=== PATIENT | male | born 1965 | race Caucasian/White ===

== ENCOUNTER 2018-10-01 18:25 | Emergency (ER) | payer OTHER ==
[~2018-10-01] VITALS: Ht 175.3 cm; Wt 117.9 kg
--- OUTSIDE RECORDS SUMMARY | ~2018-10-01 | XMS ---
Demographics + + + | Address | [address] | | | [address] | | | [place] [address] | + + + | Preferred Language | Unknown | + + + | Marital Status | Unknown | + + + | Confucianist Affiliation | Unknown | + + + | Race | Unknown | + + + | Ethnic Group | Unknown | + + + Author + + + | Author | [facility] | + + + | Organization | [facility] | + + + | Address | [address] | | | [place] [phone] | + + + | Phone | | + + + Care Team Providers + + + + | Care Nurse Administrator Name | Role | Phone | + + + + Unavailable | Unavailable | + + + + PROBLEMS +---------+ + + +--------+ + + | Type | Condition | ICD9-CM | [id number] | Onset | Condition | SNOMED | | | | Code | Code | Dates | Status | Code | +---------+ + + +--------+ + + | Problem | Hypertensi | | I10 | | Active | [id number] | | | on | | | | | | +---------+ + + +--------+ + + | Problem | Rotator | | M75.102 | | Active | 8799774686 | | | cuff tear, | | | | | 4683909 | | | left | | | | | | +---------+ + + +--------+ + + | Problem | Rotator | M75.101 | | | Active | 9425126963 | | | cuff tear, | | | | | 1688208 | | | right | | | | | | +---------+ + + +--------+ + + | Problem | Tobacco | | Z71.6 | | Active | 978372381 | | | abuse | | | | | | | | counseling | | | | | | +---------+ + + +--------+ + + | Problem | Prediabete | R73.09 | | | Active | 616671898 | | | s | | | | | | +---------+ + + +--------+ + + | Problem | Osteoarthr | M19.019 | | | Active | 966015973 | | | itis of | | | | | | | | glenohumer | | | | | | | | al joint | | | | | | +---------+ + + +--------+ + + | Problem | Osteoarthr | M19.119 | | | Active | 465293233 | | | itis due | | | | | | | | to rotator | | | | | | | | cuff tear | | | | | | +---------+ + + +--------+ + + | Problem | Bicipital | M75.20 | | | Active | 81643137 | | | tenosynovi | | | | | | | | tis | | | | | | +---------+ + + +--------+ + + | Problem | Osteoarthr | M19.019 | | | Active | 460116475 | | | itis of | | | | | | | | acromiocla | | | | | | | | vicular | | | | | | | | joint | | | | | | +---------+ + + +--------+ + + | Problem | Chronic | 338.4 | | | Active | 801843220 | | | pain | | | | | | | | syndrome | | | | | | +---------+ + + +--------+ + + | Problem | Vitamin D | 268.9 | | | Active | 15532027 | | | deficiency | | | | | | +---------+ + + +--------+ + + | Problem | HX | V15.51 | | | Active | | | | TRAUMATIC | | | | | | | | FRACTURE | | | | | | +---------+ + + +--------+ + + | Problem | Chronic | 719.41 | | | Active | 178388268 | | | right | | | | | | | | shoulder | | | | | | | | pain | | | | | | +---------+ + + +--------+ + + | Problem | Hyperlipid | | E78.5 | | Active | 05635024 | | | emia | | | | | | +---------+ + + +--------+ + + | Problem | Acquired | E03.9 | | | Active | 143288466 | | | hypothyroi | | | | | | | | dism | | | | | | +---------+ + + +--------+ + + | Problem | Peripheral | | R60.9 | | Active | 36382697 | | | edema | | | | | | +---------+ + + +--------+ + + | Problem | Tobacco | | Z72.0 | | Active | 445426259 | | | use | | | | | | +---------+ + + +--------+ + + | Problem | Alcoholism | F10.20 | | | Active | 6581199 | +---------+ + + +--------+ + + | Problem | Reactive | | J45.909 | | Active | 2868499437 | | | airway | | | | | 06 | | | disease | | | | | | +---------+ + + +--------+ + + ALLERGIES Unknown Allergies SOCIAL HISTORY No smoking Hx information available PLAN OF CARE VITAL SIGNS MEDICATIONS Unknown Medications RESULTS No Results PROCEDURES No Known procedures IMMUNIZATIONS No Known Immunizations"
--- OUTSIDE RECORDS SUMMARY | ~2018-10-01 | XMS ---
Demographics + + + | Address | [address] | | | [address] | | | [place] [address] | + + + | Preferred Language | Unknown | + + + | Marital Status | Unknown | + + + | Zoroastrianism Affiliation | Unknown | + + + | Race | Unknown | + + + | Ethnic Group | Unknown | + + + Author + + + | Author | [facility] | + + + | Organization | [facility] | + + + | Address | [address] | | | [place] [address] | + + + | Phone | | + + + Care Team Providers + + + + | Care Head Of Insight Name | Role | Phone | + + + + Unavailable | Unavailable | + + + + PROBLEMS + + + + + + + + | Type | Condition | ICD9-CM | [id number] | Onset | Condition | SNOMED | | | | Code | Code | Dates | Status | Code | + + + + + + + + | Problem | Rotator | | M75.102 | | Active | 3028281209 | | | cuff tear, | | | | | 2071623 | | | left | | | | | | + + + + + + + + | Problem | Osteoarthr | M19.019 | | | Active | 146776667 | | | itis of | | | | | | | | glenohumer | | | | | | | | al joint | | | | | | + + + + + + + + | Problem | Osteoarthr | M19.119 | | | Active | 351869726 | | | itis due | | | | | | | | to rotator | | | | | | | | cuff tear | | | | | | + + + + + + + + | Problem | Noncomplia | Z91.14 | | | Active | 988418064 | | | nce | | | | | | | | w/medicati | | | | | | | | on | | | | | | | | treatment | | | | | | | | due to | | | | | | | | intermit | | | | | | | | use of | | | | | | | | medication | | | | | | + + + + + + + + | Problem | Chronic | 719.41 | | | Active | 523771236 | | | right | | | | | | | | shoulder | | | | | | | | pain | | | | | | + + + + + + + + | Problem | Noncomplia | Z91.11 | | | Active | | | | nce of | | | | | | | | patient | | | | | | | | with | | | | | | | | dietary | | | | | | | | regimen | | | | | | + + + + + + + + | Problem | HX | V15.51 | | | Active | | | | TRAUMATIC | | | | | | | | FRACTURE | | | | | | + + + + + + + + | Assessment | Hypertensi | | I10 | 09 November, | Active | 04076468 | | | on | | | 2017 | | | + + + + + + + + | Problem | Bicipital | M75.20 | | | Active | 16163047 | | | tenosynovi | | | | | | | | tis | | | | | | + + + + + + + + | Problem | Osteoarthr | M19.019 | | | Active | 657836727 | | | itis of | | | | | | | | acromiocla | | | | | | | | vicular | | | | | | | | joint | | | | | | + + + + + + + + | Problem | Tobacco | | Z71.6 | | Active | 106715736 | | | abuse | | | | | | | | counseling | | | | | | + + + + + + + + | Problem | Prediabete | R73.09 | | | Active | 343261179 | | | s | | | | | | + + + + + + + + | Problem | Peripheral | | R60.9 | | Active | 49386490 | | | edema | | | | | | + + + + + + + + | Problem | Alcoholism | F10.20 | | | Active | 7897850 | + + + + + + + + | Problem | Chronic | 338.4 | | | Active | 563458110 | | | pain | | | | | | | | syndrome | | | | | | + + + + + + + + | Problem | Vitamin D | 268.9 | | | Active | 84559767 | | | deficiency | | | | | | + + + + + + + + | Problem | Tobacco | | Z72.0 | | Active | 696028825 | | | use | | | | | | + + + + + + + + | Problem | Reactive | | J45.909 | | Active | 5008353575 | | | airway | | | | | 06 | | | disease | | | | | | + + + + + + + + | Problem | Hyperlipid | | E78.5 | | Active | 90197949 | | | emia | | | | | | + + + + + + + + | Problem | Hypertensi | | I10 | | Active | 80517608 | | | on | | | | | | + + + + + + + + | Assessment | Prostate | Z12.5 | | 19 November, | Active | 076722718 | | | cancer | | | 2017 | | | | | screening | | | | | | + + + + + + + + | Problem | Acquired | E03.9 | | | Active | 968989544 | | | hypothyroi | | | | | | | | dism | | | | | | + + + + + + + + | Problem | Rotator | M75.101 | | | Active | 7373511854 | | | cuff tear, | | | | | 2998485 | | | right | | | | | | + + + + + + + + ALLERGIES + + + + +--------+ | Substance | Reaction | Event Type | Date | Status | + + + + +--------+ | Penicillin | Unknown | Drug Allergy | November, | Active | + + + + +--------+ SOCIAL HISTORY No smoking Hx information available PLAN OF CARE + +---------+ | Activity | Details | + +---------+ +---+ | | +---+ + + + | Pending Test | TSH | + + + | Pending Test | CBC, Platelet; No Differential | + + + | Pending Test | Comp. Metabolic Panel (14) | + + + | Pending Test | Lipid Panel | + + + | Pending Test | Hemoglobin A1C Panel | + + + | Pending Test | PSA | + + + | | 7-10 days,Reason: | + + + VITAL SIGNS + + + + | Height | 67 in | 2016-11-19 | + + + + | Weight | 243.4 lbs | 2016-11-19 | + + + + | BMI | 38.12 kg/m2 | 2016-11-19 | + + + + | Temperature | 98.7 degrees Fahrenheit | 2016-11-19 | + + + + | Heart Rate | 88 /min | 2016-11-19 | + + + + | Blood pressure systolic | 132 mm Hg | 2016-11-19 | + + + + | Blood pressure diastolic | 97 mm Hg | 2016-11-19 | + + + + MEDICATIONS Unknown Medications RESULTS No Results PROCEDURES + + + + + | Procedure | Date Ordered | Related Diagnosis | Body Site | + + + + + | Est Level IV | November 19, 2016 | | | | Extended | | | | + + + + + | DSCHRG MED/CURRENT | November 19, 2016 | | | | MED MERGE | | | | + + + + + | DOC MEDS VERIFIED | November 19, 2016 | | | | W/PT OR RE | | | | + + + + + IMMUNIZATIONS No Known Immunizations"
--- OUTSIDE RECORDS SUMMARY | ~2018-10-01 | XMS ---
Demographics + + + | Address | [address] | | | [address] | | | [place] [address] | + + + | Preferred Language | Unknown | + + + | Marital Status | Unknown | + + + | Evangelical Affiliation | Unknown | + + + | Race | Unknown | + + + | Ethnic Group | Unknown | + + + Author + + + | Author | [facility] | + + + | Organization | [facility] | + + + | Address | [address] | | | [place] [phone] | + + + | Phone | | + + + Care Team Providers + + + + | Care Parts Remover Name | Role | Phone | + + + + Unavailable | Unavailable | + + + + PROBLEMS + + + + + + + + | Type | Condition | ICD9-CM | IRK08-BE | Onset | Condition | SNOMED | | | | Code | Code | Dates | Status | Code | + + + + + + + + | Problem | Hypertensi | | I10 | | Active | 94887007 | | | on | | | | | | + + + + + + + + | Problem | Rotator | | M75.102 | | Active | 1452902646 | | | cuff tear, | | | | | 0560600 | | | left | | | | | | + + + + + + + + | Problem | Rotator | M75.101 | | | Active | 2041487617 | | | cuff tear, | | | | | 2216419 | | | right | | | | | | + + + + + + + + | Problem | Tobacco | | Z71.6 | | Active | 673303903 | | | abuse | | | | | | | | counseling | | | | | | + + + + + + + + | Assessment | Tobacco | Z72.0 | | 25 Apr, | Active | 883562990 | | | user | | | 2017 | | | + + + + + + + + | Problem | Prediabete | R73.09 | | | Active | 999094023 | | | s | | | | | | + + + + + + + + | Problem | Osteoarthr | M19.019 | | | Active | 532352385 | | | itis of | | | | | | | | erikahumer | | | | | | | | al joint | | | | | | + + + + + + + + | Problem | Osteoarthr | M19.119 | | | Active | 079830632 | | | itis due | | | | | | | | to rotator | | | | | | | | cuff tear | | | | | | + + + + + + + + | Problem | Bicipital | M75.20 | | | Active | 24512819 | | | tenosynovi | | | | | | | | tis | | | | | | + + + + + + + + | Problem | Osteoarthr | M19.019 | | | Active | 245813986 | | | itis of | | | | | | | | acromiocla | | | | | | | | vicular | | | | | | | | joint | | | | | | + + + + + + + + | Problem | Chronic | 338.4 | | | Active | 317211132 | | | pain | | | | | | | | syndrome | | | | | | + + + + + + + + | Problem | Vitamin D | 268.9 | | | Active | 57306436 | | | deficiency | | | [...] | 719.41 | | | Active | 073629281 | | | right | | | | | | | | shoulder | | | | | | | | pain | | | | | | + + + + + + + + | Problem | Hyperlipid | | E78.5 | | Active | 07189042 | | | emia | | | | | | + + + + + + + + | Problem | Acquired | E03.9 | | | Active | 420934510 | | | hypothyroi | | | | | | | | dism | | | | | | + + + + + + + + | Problem | Peripheral | | R60.9 | | Active | 67309175 | | | edema | | | | | | + + + + + + + + | Problem | Tobacco | | Z72.0 | | Active | 897078966 | | | use | | | | | | + + + + + + + + | Problem | Alcoholism | F10.20 | | | Active | 5841360 | + + + + + + + + | Problem | Reactive | | J45.909 | | Active | 7243640540 | | | airway | | | | | 06 | | | disease | | | | | | + + + + + + + + ALLERGIES Unknown Allergies SOCIAL HISTORY No smoking Hx information available PLAN OF CARE + +---------+ | Activity | Details | + +---------+ +---+ | | +---+ + + + | Pending Test | Nicotine, Urine | + + + | | ,Reason: | + + + VITAL SIGNS MEDICATIONS Unknown Medications RESULTS No Results PROCEDURES No Known procedures IMMUNIZATIONS No Known Immunizations"
--- OUTSIDE RECORDS SUMMARY | ~2018-10-01 | XMS ---
Demographics + + + | Address | [address] | | | [address] | | | [place] [address] | + + + | Preferred Language | Unknown | + + + | Marital Status | Unknown | + + + | Mandaen Affiliation | Unknown | + + + | Race | Unknown | + + + | Ethnic Group | Unknown | + + + Author + + + | Author | [facility] | + + + | Organization | [facility] | + + + | Address | [address] | | | [place] [address] | + + + | Phone | | + + + Care Team Providers + + + + | Care Wax Coating Machine Tender Name | Role | Phone | + + + + Unavailable | Unavailable | + + + + PROBLEMS + + + + + + + + | Type | Condition | ICD9-CM | WUL83-[id number] | Onset | Condition | SNOMED | | | | Code | Code | Dates | Status | Code | + + + + + + + + | Problem | Rotator | | M75.102 | | Active | [id number] | | | cuff tear, | | | | | 9237742 | | | left | | | | | | + + + + + + + + | Problem | Osteoarthr | M19.019 | | | Active | 463122642 | | | itis of | | | | | | | | glenohumer | | | | | | | | al joint | | | | | | + + + + + + + + | Problem | Osteoarthr | M19.119 | | | Active | 630455235 | | | itis due | | | | | | | | to rotator | | | | | | | | cuff tear | | | | | | + + + + + + + + | Problem | Noncomplia | Z91.14 | | | Active | 553310139 | | | nce | | | [...] | 719.41 | | | Active | 661471940 | | | right | | | [...] Assessment | Hypertensi | | I10 | 19 November, | Active | 42163747 | | | on | | | 2017 | | | + + + + + + + + | Problem | Bicipital | M75.20 | | | Active | 22717078 | | | tenosynovi | | | | | | | | tis | | | | | | + + + + + + + + | Problem | Osteoarthr | M19.019 | | | Active | 137465641 | | | itis of | | | | | | | | acromiocla | | | | | | | | vicular | | | | | | | | joint | | | | | | + + + + + + + + | Problem | Tobacco | | Z71.6 | | Active | 153795515 | | | abuse | | | | | | | | counseling | | | | | | + + + + + + + + | Problem | Prediabete | R73.09 | | | Active | 561008204 | | | s | | | | | | + + + + + + + + | Problem | Peripheral | | R60.9 | | Active | 60627601 | | | edema | | | | | | + + + + + + + + | Problem | Alcoholism | F10.20 | | | Active | 0825976 | + + + + + + + + | Problem | Chronic | 338.4 | | | Active | 728089448 | | | pain | | | | | | | | syndrome | | | | | | + + + + + + + + | Problem | Vitamin D | 268.9 | | | Active | 07326860 | | | deficiency | | | | | | + + + + + + + + | Problem | Tobacco | | Z72.0 | | Active | 294597875 | | | use | | | | | | + + + + + + + + | Problem | Reactive | | J45.909 | | Active | 4607668995 | | | airway | | | | | 06 | | | disease | | | | | | + + + + + + + + | Problem | Hyperlipid | | E78.5 | | Active | 76643520 | | | emia | | | | | | + + + + + + + + | Problem | Hypertensi | | I10 | | Active | 08716985 | | | on | | | | | | + + + + + + + + | Assessment | Encounter | | Z13.89 | 29 November, | Active | 769494488 | | | for | | | 2017 | | | | | screening | | | | | | | | for other | | | | | | | | disorder | | | | | | + + + + + + + + | Problem | Acquired | E03.9 | | | Active | 092241546 | | | hypothyroi | | | | | | | | dism | | | | | | + + + + + + + + | Problem | Rotator | M75.101 | | | Active | 3339984103 | | | cuff tear, | | | | | 1232409 | | | right | | | [...] information available PLAN OF CARE VITAL SIGNS + + + + | Height | 67 in | 2016-11-29 | + + + + | Weight | 244.6 lbs | 2016-11-29 | + + + + | BMI | 38.31 kg/m2 | 2016-11-29 | + + + + | Temperature | 99.4 degrees Fahrenheit | 2016-11-29 | + + + + | Heart Rate | 97 /min | 2016-11-29 | + + + + | Blood pressure systolic | 146 mm Hg | 2016-11-29 | + + + + | Blood pressure diastolic | 103 mm Hg | 2016-11-29 | + + + + MEDICATIONS + + + + + + + +--------+ | Medicati | Instruct | Dosage | Frequenc | Start | End Date | Duration | Status | | on | ions | | y | Date | | | | + + + + + + + +--------+ | Atorvast | Orally | 1 tablet | 24h | 29 November, | | 30 | Active | | atin | Once a | | | 2017 | | day(s) | | | Calcium | day | | | | | | | | 10 mg | | | | | | | | + + + + + + + +--------+ | Lisinopr | Orally | 1 tablet | 24h | 29 November, | | 30 | Active | | il 10 mg | Once a | | | 2016 | | day(s) | | | | day | | | | | | | + + + + + + + +--------+ RESULTS No Results PROCEDURES + + + + + | Procedure | Date Ordered | Related Diagnosis | Body Site | + + + + + | Est Level IV | November 29, 2016 | | | | Extended | | | | + + + + + | DS[facility]RG MED/CURRENT | November 29, 2016 | | | | MED MERGE | | | | + + + + + | AUDIT/DAST | November 29, 2016 | | | + + + + + | DOC MEDS VERIFIED | November 29, 2016 | | | | W/PT OR RE | | | | + + + + + IMMUNIZATIONS No Known Immunizations"
--- OUTSIDE RECORDS SUMMARY | ~2018-10-01 | XMS ---
Demographics + + + | Address | [address] | | | [address] | | | [place] [address] | + + + | Preferred Language | Unknown | + + + | Marital Status | Unknown | + + + | Uatsdin Affiliation | Unknown | + + + | Race | Unknown | + + + | Ethnic Group | Unknown | + + + Author + + + | Author | [facility] | + + + | Organization | [facility] | + + + | Address | [address] | | | [place] [address] | + + + | Phone | | + + + Care Team Providers + + + + | Care Clinical Transformation Specialist Name | Role | Phone | + + + + Unavailable | Unavailable | + + + + PROBLEMS +---------+ + + +--------+ + + | Type | Condition | ICD9-CM | [id number] | Onset | Condition | SNOMED | | | | Code | Code | Dates | Status | Code | +---------+ + + +--------+ + + | Problem | Rotator | | M75.102 | | Active | 7517264830 | | | cuff tear, | | | | | 5051003 | | | left | | | | | | +---------+ + + +--------+ + + | Problem | Osteoarthr | M19.019 | | | Active | 238927582 | | | itis of | | | | | | | | glenohumer | | | | | | | | al joint | | | | | | +---------+ + + +--------+ + + | Problem | Osteoarthr | M19.119 | | | Active | 706638468 | | | itis due | | | | | | | | to rotator | | | | | | | | cuff tear | | | | | | +---------+ + + +--------+ + + | Problem | Noncomplia | Z91.14 | | | Active | 663757955 | | | nce | | | [...] medication | | | | | | +---------+ + + +--------+ + + | Problem | Chronic | 719.41 | | | Active | 231351151 | | | right | | | | | | | | shoulder | | | | | | | | pain | | | | | | +---------+ + + +--------+ + + | Problem | Noncomplia | Z91.11 | | | Active | | | | nce of | | | | | | | | patient | | | | | | | | with | | | | | | | | dietary | | | | | | | | regimen | | | | | | +---------+ + + +--------+ + + | Problem | HX | V15.51 | | | Active | | | | TRAUMATIC | | | | | | | | FRACTURE | | | | | | +---------+ + + +--------+ + + | Problem | Bicipital | M75.20 | | | Active | 77691699 | | | tenosynovi | | | | | | | | tis | | | | | | +---------+ + + +--------+ + + | Problem | Osteoarthr | M19.019 | | | Active | 768108443 | | | itis of | | | | | | | | acromiocla | | | | | | | | vicular | | | | | | | | joint | | | | | | +---------+ + + +--------+ + + | Problem | Tobacco | | Z71.6 | | Active | 245181233 | | | abuse | | | | | | | | counseling | | | | | | +---------+ + + +--------+ + + | Problem | Prediabete | R73.09 | | | Active | 715060834 | | | s | | | | | | +---------+ + + +--------+ + + | Problem | Peripheral | | R60.9 | | Active | 05830404 | | | edema | | | | | | +---------+ + + +--------+ + + | Problem | Alcoholism | F10.20 | | | Active | 4931832 | +---------+ + + +--------+ + + | Problem | Chronic | 338.4 | | | Active | 176642983 | | | pain | | | | | | | | syndrome | | | | | | +---------+ + + +--------+ + + | Problem | Vitamin D | 268.9 | | | Active | 12165772 | | | deficiency | | | | | | +---------+ + + +--------+ + + | Problem | Tobacco | | Z72.0 | | Active | 568092710 | | | use | | | | | | +---------+ + + +--------+ + + | Problem | Reactive | | J45.909 | | Active | 6403757790 | | | airway | | | | | 06 | | | disease | | | | | | +---------+ + + +--------+ + + | Problem | Hyperlipid | | E78.5 | | Active | 77527380 | | | emia | | | | | | +---------+ + + +--------+ + + | Problem | Hypertensi | | I10 | | Active | 66828929 | | | on | | | | | | +---------+ + + +--------+ + + | Problem | Acquired | E03.9 | | | Active | 970374184 | | | hypothyroi | | | | | | | | dism | | | | | | +---------+ + + +--------+ + + | Problem | Rotator | M75.101 | | | Active | 2303031745 | | | cuff tear, | | | | | 5143646 | | | right | | | | | | +---------+ + + +--------+ + + ALLERGIES + + + + +--------+ | Substance | Reaction | Event Type | Date | Status | + + + + +--------+ | Penicillin | Unknown | Drug Allergy | Dec, | Active | + + + + +--------+ SOCIAL HISTORY No smoking Hx information available PLAN OF CARE + +---------+ | Activity | Details | + +---------+ +---+ | | +---+ + + + | Follow Up | 4 Weeks Reason:null | + + + VITAL SIGNS + + + + | Height | 67 in | 2016-12-18 | + + + + | Weight | 252.0 lbs | 2016-12-18 | + + + + | BMI | 39.46 kg/m2 | 2016-12-18 | + + + + | Temperature | 98.6 degrees Fahrenheit | 2016-12-18 | + + + + | Heart Rate | 103 /min | 2016-12-18 | + + + + | Blood pressure systolic | 127 mm Hg | 2016-12-18 | + + + + | Blood pressure diastolic | 90 mm Hg | 2016-12-18 | + + + + MEDICATIONS + + + + + + + +--------+ | Medicati | Instruct | Dosage | Frequenc | Start | End Date | Duration | Status | | on | ions | | y | Date | | | | + + + + + + + +--------+ | Chantix | | as | | 07 Henri, | | | Active | | Starting | | directed | | 2016 | | | | | Month | | | | | | | | | Khang 0.5 | | | | | | | | | MG X 11 | | | | | | | | | & 1 MG X | | | | | | | | | 42 | | | | | | | | + + + + + + + +--------+ | Gabapent | Orally | 1 | | Dec, | | 30 | Active | | in 300 | qHS | capsule | | 2016 | | day(s) | | | MG | | | | | | | | + + + + + + + +--------+ | Atorvast | Orally | 1 tablet | 24h | 29 November, | | 30 | Active | | atin | Once a | | | 2016 | | day(s) | | | Calcium [...] + + + + | Est Level III | December 18, 2016 | | | | Intermediate | | | | + + + + + | [facility] MED/CURRENT | December 18, 2016 | | | | MED MERGE | | | | + + + + + | DOC MEDS VERIFIED | December 18, 2016 | | | | W/PT OR RE | | | | + + + + + IMMUNIZATIONS No Known Immunizations"
--- OUTSIDE RECORDS SUMMARY | ~2018-10-01 | XMS ---
Demographics + + + | Address | [address] | | | [address] | | | [place] [address] | + + + | Preferred Language | Unknown | + + + | Marital Status | Unknown | + + + | Buddhism Affiliation | Unknown | + + + | Race | Unknown | + + + | Ethnic Group | Unknown | + + + Author + + + | Author | [facility] | + + + | Organization | [facility] | + + + | Address | [address] | | | [place] [address] | + + + | Phone | | + + + Care Team Providers + + + + | Care Assistant Womens Volleyball Coach Name | Role | Phone | + + + + Unavailable | Unavailable | + + + + PROBLEMS +---------+ + + +--------+ + + | Type | Condition | ICD9-CM | [id number] | Onset | Condition | SNOMED | | | | Code | Code | Dates | Status | Code | +---------+ + + +--------+ + + | Problem | Hypertensi | | I10 | | Active | [id number] | | | on | | | | | | +---------+ + + +--------+ + + | Problem | Rotator | | M75.102 | | Active | [id number] | | | cuff tear, | | | | | 1297916 | | | left | | | | | | +---------+ + + +--------+ + + | Problem | Rotator | M75.101 | | | Active | [id number] | | | cuff tear, | | | | | 4213383 | | | right | | | | | | +---------+ + + +--------+ + + | Problem | Tobacco | | Z71.6 | | Active | 032176112 | | | abuse | | | | | | | | counseling | | | | | | +---------+ + + +--------+ + + | Problem | Prediabete | R73.09 | | | Active | 954848911 | | | s | | | | | | +---------+ + + +--------+ + + | Problem | Osteoarthr | M19.019 | | | Active | 153661139 | | | itis of | | | | | | | | glenohumer | | | | | | | | al joint | | | | | | +---------+ + + +--------+ + + | Problem | Osteoarthr | M19.119 | | | Active | 771206226 | | | itis due | | | | | | | | to rotator | | | | | | | | cuff tear | | | | | | +---------+ + + +--------+ + + | Problem | Bicipital | M75.20 | | | Active | 35618592 | | | tenosynovi | | | | | | | | tis | | | | | | +---------+ + + +--------+ + + | Problem | Osteoarthr | M19.019 | | | Active | 338730803 | | | itis of | | | | | | | | acromiocla | | | | | | | | vicular | | | | | | | | joint | | | | | | +---------+ + + +--------+ + + | Problem | Chronic | 338.4 | | | Active | 432945521 | | | pain | | | | | | | | syndrome | | | | | | +---------+ + + +--------+ + + | Problem | Vitamin D | 268.9 | | | Active | 88664406 | | | deficiency | | | | | | +---------+ + + +--------+ + + | Problem | HX | V15.51 | | | Active | | | | TRAUMATIC | | | | | | | | FRACTURE | | | | | | +---------+ + + +--------+ + + | Problem | Chronic | 719.41 | | | Active | 228269133 | | | right | | | | | | | | shoulder | | | | | | | | pain | | | | | | +---------+ + + +--------+ + + | Problem | Hyperlipid | | E78.5 | | Active | 77658342 | | | emia | | | | | | +---------+ + + +--------+ + + | Problem | Acquired | E03.9 | | | Active | 817700692 | | | hypothyroi | | | | | | | | dism | | | | | | +---------+ + + +--------+ + + | Problem | Peripheral | | R60.9 | | Active | 06726835 | | | edema | | | | | | +---------+ + + +--------+ + + | Problem | Tobacco | | Z72.0 | | Active | 150120682 | | | use | | | | | | +---------+ + + +--------+ + + | Problem | Alcoholism | F10.20 | | | Active | 0583677 | +---------+ + + +--------+ + + | Problem | 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
[~2018-10-01 18:25] MED LIST: BACLOFEN10 MG PO; BACTRIM DS TAB1 EACH PO; CIPROFLOXACIN500 MG PO; CIPROFLOXACIN750 MG PO; KEFLEX500 MG PO; NORCO 10-325 T1 EACH PO; SULFAMETHOXAZO1 EAC1 PO; TRAMADOL HCL50 MG PO; ULTRAM50 MG PO
[2018-10-01] MEDS ORDERED: SULFACETAMIDE S15 ML OU (19:44)
== END 2018-10-01 19:57 | disposition home or self-care (01) ==
LOC: ED 18:25
DX: T65.891A Toxic effect of other specified substances, accidental (unintentional), initial encounter (principal); H10.212 Acute toxic conjunctivitis, left eye; J45.909 Unspecified asthma, uncomplicated; F17.200 Nicotine dependence, unspecified, uncomplicated; Z88.0 Allergy status to penicillin
CPT/HCPCS: 99283

== ENCOUNTER 2019-06-06 18:07 | Emergency (ER) | payer OTHER ==
[~2019-06-06] VITALS: Ht 175.3 cm; Wt 117.9 kg
--- OUTSIDE RECORDS SUMMARY | ~2019-06-06 | XMS | Clinical Summary ---
Demographics + + + | Address | [address] | | | [place] [address] | + + + | Home Phone | | + + + | Preferred Language | Unknown | + + + | Marital Status | Unknown | + + + | Episcopal Affiliation | Unknown | + + + | Race | Unknown | + + + | Ethnic Group | Unknown | + + + Author + + + | Author | [facility] (Historical as of | | | 02-27-19) | + + + | Organization | [facility] (Historical as of | | | 02-27-19) | + + + | Address | Unknown | + + + | Phone | Unavailable | + + + Support +--------+ +---------+ + | Name | Relationship | Address | Phone | +--------+ +---------+ + | No,One | ECON | Unknown | | +--------+ +---------+ + Care Team Providers + +------+ + | Care Contract Technical Writer Name | Role | Phone | + +------+ + PP | Unavailable | + +------+ + Allergies Not on File Current Medications Not on file Active Problems Not on file Social History + +-------+ +--------+------+ | Tobacco Use | Types | Packs/Day | Years | Date | | | | | Used | | + +-------+ +--------+------+ | Never Assessed | | | | | + +-------+ +--------+------+ + + + | Sex Assigned at | Date Recorded | | | | + + + | Not on file | | + + + Plan of Treatment + + + + + | Health Maintenance | Due Date | Last Done | Comments | + + + + + | Vaccine: | | | | | Dtap/Tdap/Td (1 - | 3 | | | | Tdap) | | | | + + + + + | Colon Cancer | | | | | Screening | 4 | | | | (Colonoscopy) | | | | + + + + + | Vaccine: Zoster (1 | | | | | of 2) | 4 | | | + + + + + | Vaccine: Influenza | | | | | (#1) | 9 | | | + + + + + Results Not on filefrom Last 3 Months Insurance + +--------+ +------+-------+---------+ | Payer | Benefi | Subscriber | Type | Phone | Address | | | t Plan | ID | | | | | | / | | | | | | | Group | | | | | + +--------+ +------+-------+---------+ | [employer] | ODS | [id number] | | | | | | HEALTH | | | | | | | PLAN | | | | | + +--------+ +------+-------+---------+ + +--------+ +--------+ + + | Guarantor Name | Accoun | Relation to | Date | Phone | Billing Address | | | t Type | Patient | of | | | | | | | | | | + +--------+ +--------+ + + | SHREE OMY | Person | Self [birth year] Home: | [address] | | | al/Fam | | 1965 | [phone] | [address] [place] | | | bonnie | | [phone] | + +--------+ +--------+ + +"
--- OUTSIDE RECORDS SUMMARY | ~2019-06-06 | XMS | Clinical Summary ---
Demographics + + + | Address | [address] | | | [place] [address] | + + + | Home Phone | | + + + | Preferred Language | Unknown | + + + | Marital Status | Unknown | + + + | Buddhism Affiliation | Unknown | + + + | Race | Unknown | + + + | Ethnic Group | Unknown | + + + Author + + + | Author | [facility] (Historical as of | | | 02-27-19) | + + + | Organization | [facility] (Historical as of | | | 02-27-19) | + + + | Address | Unknown | + + + | Phone | Unavailable | + + + Support +--------+ +---------+ + | Name | Relationship | Address | Phone | +--------+ +---------+ + | No,One | ECON | Unknown | | +--------+ +---------+ + Care Team Providers + +------+ + | Care Grain Elevator Operator Name | Role | Phone | + [...] | [employer] | ODS | [id number] | | | | | | HEALTH [...] + +--------+ +--------+ + + | SHREE MOY | Person | Self | [birth year] | Home: | [address] | | | al/Fam | | 1965 | [phone] | [address] [place] | | | bonnie | | [phone] | + +--------+ +--------+ + +"
[~2019-06-06 18:07] MED LIST changes: +SULFACETAMIDE S15 ML OU
[2019-06-06] MEDS ORDERED: FLAGYL500 MG PO (21:08)
[2019-06-06] MEDS ORDERED: CIPRO500 MG PO (21:08)
[2019-06-06] MEDS ORDERED: NORCO 5-325 TA1 EACH PO (21:08)
== END 2019-06-06 21:27 | disposition home or self-care (01) ==
LOC: ED 18:07
DX: K57.32 Diverticulitis of large intestine without perforation or abscess without bleeding (principal); E27.9 Disorder of adrenal gland, unspecified; F17.200 Nicotine dependence, unspecified, uncomplicated; Z88.0 Allergy status to penicillin
CPT/HCPCS: 74177; 80053; 81001; 83690; 85025; 96361; 99284-25; J1170; J2405; J7030; Q9967

== ENCOUNTER 2020-01-25 06:32 | Day surgery (SDC) | payer OTHER ==
[~2020-01-25] VITALS: Ht 175.3 cm; Wt 106.6 kg
[~2020-01-25 06:32] MED LIST changes: +CIPRO500 MG PO; +FLAGYL500 MG PO; +LIPITOR20 MG PO; +LISINOPRIL10 MG PO; +NORCO 5-325 TA1 EACH PO
--- NOTE | 2020-01-25 08:12 | NUR ---
01/25/20 0812 Maria Elena [place]field 0806-PATIENT ARRIVED TO PACU ON 2L NC RR EVEN. PATIENT LAYING LEFT LATERAL ABDOMEN SOFT AND ROUND. PATIENT NONAROUSABLE. IVF INFUSING.
--- NOTE | 2020-01-25 09:28 | NUR ---
CALL LIGHT WITHIN REACH. ICED WATER AT THE BEDSIDE. CONTINUOUS PULSE OXIMETER IN PLACE. PATIENT DOES NOT OPEN HIS EYES WHEN HIS NAME IS CALLED.
--- NOTE | 2020-01-25 10:31 | NUR ---
PATIENT PUSHES HIS CALL LIGHT AND IS MOANING AND ROLLING AROUNG IN THE BED. PATIENT REPORTS HE IS 10/10 ABDOMINAL PAIN. PATIENT REPORTS NAUSEA. PATIENT STANDS AND IS UNABLE TO HOLD STILL. PATIENT IS MOANING AND WRITHING IN BED. PATIENT IS PALE. WARM BLANKET GIVEN FOR ABDOMEN. DR CASTLE NOTIFIED OF CHANGE IN PATIENT'S STATUS.
--- NOTE | 2020-01-25 12:44 | NUR ---
PATIENT IS ASLEEP. RESPIRATIONS ARE EVEN AND UNLABORED. PATIENT DOES NOT WAKE FOR VITALS.
--- NOTE | 2020-01-25 13:09 | NUR ---
PATIENT IS UP TO THE BATHROOM. PATIENT IS MOANING AND HOLDING HIS ABDOMEN. HE OTHERWISE AMBULATES WELL.
--- NOTE | 2020-01-25 13:21 | NUR ---
PATIENT IS UP TO THE BATHROOM. PATIENT STATES "WE ARE GOING TO HAVE TO DO SOMETHING ELSE. I HURT." PHONE CALL TO DR. CASTLE. ORDERS RECEIVED.
--- NOTE | 2020-01-25 13:40 | NUR ---
PATIENT IS UP TO THE BATHROOM WITH MY STANDBY. PATIENT AMBULATES WELL, ALTHOUGH HE IS CONTINUING TO BE PAINFUL AND MOANS. FLEET ENEMA GIVEN AND PATIENT TOLERATED THAT WELL. PATIENT IS BELCHING.
--- NOTE | 2020-01-25 14:49 | NUR ---
LE 1400: PATIENT IS OUT OF THE BATHROOM AND AMBULATES BACK TO BED. LIGHTS DIMMED PER PATIENT'S REQUEST. PATIENT REPORTS "THAT ENEMA DID NOT WORK."
--- NOTE | 2020-01-25 14:50 | NUR ---
PATIENT IS SLEEPING WHEN I ENTER THE ROOM. PATIENT DOES NOT WAKE WHEN I PLACE THE BLOOD PRESSURE CUFF. PATIENT WAKES WHEN CUFF BEGINS TAKING HIS BLOOD PRESSURE AND HE BEGINS MOANING. PATIENT DENIES DESIRE TO GO HOME.
--- NOTE | 2020-01-25 15:31 | NUR ---
PATIENT DECLINES OFFER OF GETTING DRESSED. HE STATES "WAKE ME UP WHEN YOU HAVE TO GO HOME."
--- NOTE | 2020-01-25 16:51 | NUR ---
PATIENT IS HEARD HAVING EMESIS FROM THE NURSE'S STATION. I ENTER THE ROOM AND PATIENT HAS VOMITED 250 ML CLEAR EMESIS INTO EMESIS BAG. PATIENT REPORTS "I'M BURNING UP." VITALS TAKEN AND ALL WITHIN NORMAL LIMITS. CALL TO DR. CASTLE. NEW ORDERS RECEIVED.
--- NOTE | 2020-01-25 17:10 | NUR ---
CALL TO [facility] REGARDING PATIENT'S TRANSFER. SPOKE WITH THE CHARGE NURSE. PATIENT WILL GO TO ROOM 119. CALL TO DR. CASTLE REGARDING PATIENT'S TRANSFER. MESSAGE LEFT ON HIS CELL PHONE.
--- NOTE | 2020-01-25 17:30 | NUR ---
RECIEVED CALL FROM DR CASTLE WITH ORDERS FOR STAY OVENIGHT.
--- NOTE | 2020-01-25 17:45 | NUR ---
54YR OLD MAN TRANFERRED FROM PACU VIA STRETCHER TO ROOM 119. PT IS ALERT, ABLE TO STAND AND TRANSFER SELF ONTO BED. ALERT AND ORIENTED, ORIENTED TO ROOM AND CALL LIGHT, STATES HE JUST NEEDS TO REST. CALL LIGHT IN EASY REACH.
--- NOTE | 2020-01-25 17:53 | NUR ---
PATIENT STANDS AND AMBULATES TO THE BATHROOM AND THEN TRANSFERS HIMSELF INTO THE BED. CALL LIGHT IS WITHIN REACH. VERBAL REPORT IS GIVEN TO KAYLA PERALTA AND HER QUESTIONS ARE ANSWERED.
--- NOTE | 2020-01-25 19:27 | NUR ---
REPORT RECEIVED FROM DAY SHIFT RN. PT LYING IN BED RESTING WITH EYES CLOSED, NAD. RR EVEN AND UNLABORED. IVF INFUSING. WHITE BOARD UPDATED. CALL LIGHT IN REACH.
--- NOTE | 2020-01-25 21:00 | NUR ---
PT RESTING ON LEFT SIDE. AWAKENED TO ATTEMPT TO AMB. PT VERY PAINFUL WITH MOVEMENT. STOOD AT SIDE OF BED, DOUBLED OVER AND MOANING. SAT BACK DOWN AND STATES "MY BUTT IS LEAKING". SBA TO BR TO HAVE WATERY BM. ASSISTED WITH JOSUE CARE. BRIEF PLACED. PT BACK TO BED, YASMIN FAIR. PT REPORTS PASSING GAS AND BELCHING. ABD DISTENDED, FIRM, AND PAINFUL TO TOUCH. WILL CONTINUE TO ENCOURAGE AMBULATION. CL LIQ PROVIDED. ASSESSMENT COMPLETE.
--- NOTE | 2020-01-25 23:10 | NUR ---
PT RESTING IN BED WITH EYES CLOSED, NAD.
--- NOTE | 2020-01-26 00:22 | NUR ---
PT LYING IN BED ON LEFT SIDE RESTING WITH EYES CLOSED. RR EVEN AND UNLABORED. CALL LIGHT IN REACH.
--- NOTE | 2020-01-26 02:00 | NUR ---
PT AWAKENED FOR VS AND I&O. REPORTS THAT HE'S FEELING MUCH BETTER, "ANXIOUS TO GET HOME". UP TO BR WITH SBA TO VOID AND HAVE XL LIQ BM. PT REPORTS ABD CRAMPING AND PAIN BEFORE HAVING BM. PRN GIVEN FOR NAUSEA AND PAIN. CL LIQUIDS PROVIDED. PT AMBULATING PAYAN WITH CONTACT LENS CUTTER AT THIS TIME.
--- NOTE | 2020-01-26 02:10 | NUR ---
PT AMBULATED ONE LAP WITH THIS NURSE. TOLERATED FAIR, SAID HE NEEDED TO LAY DOWN AND SLEEP. NO COMPLAINT OF DISCOMFORT, PLEASANT AND COOPERATIVE. CALL LIGHT AND PERSONAL ITEMS WITHIN REACH.
--- NOTE | 2020-01-26 04:15 | NUR ---
PT RESTING IN BED WITH EYES CLOSED, NAD.
--- NOTE | 2020-01-26 05:42 | NUR ---
PT UP TO BR WITH SBA. PT SWEATY COMPLAINING OF ABD PAIN AND NAUSEA. HAD XL LIQ BM WITH SOME INCONTINENCE. BLOOD SUGAR 133. BACK TO BED. CL LIQUIDS PROVIDED. PT REPORTS HE IS FEELING BETTER AFTER HAVING BM. NO FURTHER NEEDS. CALL LIGHT IN REACH.
--- NOTE | 2020-01-26 06:05 | OR ---
[facility] [address] [place], [place] [address] Signed DATE OF OPERATION: 01/25/2020 SURGEON: Roma Castle MD DATE OF PROCEDURE: 01/25/2020 PREOPERATIVE DIAGNOSIS: Sigmoid diverticulitis (May 2019). POSTOPERATIVE DIAGNOSES: 1. A 5 mm polyp at 16 cm (rectosigmoid junction). 2. An 8 mm pedunculated polyp at 30 cm (snare). 3. A 5 mm polyp at the proximal transverse colon. 4. Moderate left-sided and sigmoid colon diverticulosis. 5. Moderate external hemorrhoids. 6. Moderately swollen and indurated prostate (left greater than right). PROCEDURE: Colonoscopy, snare polypectomy and hot biopsy. ESTIMATED BLOOD LOSS: None. INDICATIONS: Brandie is a 55-year-old gentleman who had been to the emergency room on June 06, 2019. He had left-sided abdominal pain. The CT scan confirmed his diverticulitis in the proximal sigmoid colon. He had been treated as an outpatient and improved. He had been asked to see me in followup for colonoscopy. Also, he has never had a previous colonoscopy. He is also in the middle of evaluating right adrenal nodule with Dr. Mickey Babb in [place], [place]. More recently, he has no lower GI complaints. There is no family history of colon cancer or polyps. In the office, I had given Anastasiya brochure on diverticular disease as well as colonoscopy. We reviewed both in detail. He understands the nature of the colonoscopy along with its risks including, but not limited to gas, bloating, crampy abdominal pain, bleeding, perforation requiring surgery, and missed diagnosis. He also understands the need for IV conscious sedation. He had expressed understanding and wished to proceed. DESCRIPTION OF PROCEDURE: Brandie was taken into our endoscopy suite and placed in the left lateral decubitus Electronically Signed By: ROMA CASTLE MD 01/26/20 0605 PATIENT NAME: BRANDIE MOY OPERATIVE REPORT DATE OF : 63 REPORT #: [id number] PHYSICIAN: ROMA CASTLE MD PCP: STEVEN HARRISON MD REPORT IS CONFIDENTIAL AND NOT TO BE RELEASED WITHOUT AUTHORIZATION [facility] [address] [place], [place] [address] Signed position. He was given a total of 11 mg of Versed and 200 mcg of fentanyl. Fortunately, it was easy to pass the scope into his cecum. Although, he woke up multiple times during the procedure. In the future, he would be much better served with monitored anesthesia care and propofol infusion. A digital rectal exam had been done and he does have 2 bilateral moderate-sized external hemorrhoids and a good sphincter tone. Prostate gland is moderately swollen and indurated. The left is more prominent than the right. The adult colonoscope was introduced and advanced all the way around into the cecum under direct visualization of camera. It took extra sedation and some mild abdominal compression in order to advance the scope. His prep was quite good thankfully. We could easily see the appendiceal orifice and the ileocecal valve. The scope was slowly withdrawn. We used a hot biopsy forceps to remove the polyps in the proximal transverse colon and at the rectosigmoid junction. We used a snare to remove the polyp at 30 cm. We then cauterized the stalk and the base of the stalk with our hot biopsy forceps. We can also see that he has moderate left-sided diverticulosis. It starts up in the left colon and the worst area is right around 30 cm consistent with the CT scan. The rectum itself was unremarkable. Upon retroflexion of the scope, there was no additional pathology noted above the anal canal. After this, the gas was suctioned out and the colonoscope removed. Overall, Brandie tolerated the procedure well. RECOMMENDATIONS: I will see Brandie back in my office in 7 to 14 days to review his results. He needs to have monitored anesthesia care in the future. Roma Castle MD ALB/MODL /[id number] cc: MD Mickey Fried MD Copies: MICKEY BABB MD Electronically Signed By: ROMA CASTLE MD 01/26/20 0605 PATIENT NAME: BRANDIE MOY OPERATIVE REPORT DATE OF : 63 REPORT #: [id number] PHYSICIAN: ROMA CASTLE MD PCP: STEVEN HARRISON MD REPORT IS CONFIDENTIAL AND NOT TO BE RELEASED WITHOUT AUTHORIZATION [address] [address] Signed ~ Electronically Signed By: ROMA CASTLE MD 01/26/20 0605 PATIENT NAME: BRANDIE MOY OPERATIVE REPORT DATE OF : 63 REPORT #: [id number] PHYSICIAN: ROMA CASTLE MD PCP: STEVEN HARRISON MD REPORT IS CONFIDENTIAL AND NOT TO BE RELEASED WITHOUT AUTHORIZATION
--- NOTE | 2020-01-26 08:30 | NUR ---
WOKE PT UP, SAT UP ON SIDE OF BED FOR CLEAR LIQUID TRAY, NOTED ICREASED BS IN UPPER QUADRANTS, CONT. TO FEEL BLOATED BUT DENIES NAUSEA. ENC TO AMBULATE AFTER HE FINISHES. AGREEABLE. DENIES FURTHER NEEDS.
--- NOTE | 2020-01-26 11:51 | NUR ---
AMBULATED IN HALLS AND HAD INCREASING ABD PAIN AND SOME NAUSEA, TYLENOL AND ZOFRAN GIVEN, OFFERED SHOWERED BUT STATES MAYBE IN A BIT, AGAIN LAYING ON BED, DR CASTLE CALLED FOR UPDATE.
--- NOTE | 2020-01-26 12:00 | NUR ---
PATIENT DID NOT WANT TO EAT ANYTHING FOR LUNCH, PATIENT WAS OFFERED MULTIPLE TIMES
--- NOTE | 2020-01-26 12:24 | NUR ---
CALL PLACED TO DR CASTLE, PT C/O SOB AND IS WHEEZING, STATES HE DOES SMOKE, RECIEVED ORDER TO BEGIN ALBUTEROL NEBS, RESP THERAPY NOTIFIED.
--- NOTE | 2020-01-26 14:35 | NUR ---
PT LAYING IN BED, ANNIKA KANG IN RM CHARTING. PT IN GOOD SPIRITS, ABLE TO JOKE ABOUT THE GAS LEFT FROM HIS SCOPE. GAVE ENCOURAGEMENT AND BLESSING
--- NOTE | 2020-01-26 16:30 | NUR ---
PT UP ABOUT ROOM, INCREASED BELCHING, AGREED TO TAKE A SHOWER, ABD IS DISTENDED, DENIES NAUSEA, ASKING IF DIET CAN BE ADVANCED. 7UP GIVEN TO DRINK.
[2020-01-26] MEDS ORDERED: VENTOLIN HFA18 GM INH (17:11)
[2020-01-26] MEDS ORDERED: WIXELA 100-501 EACH INH (17:14)
--- NOTE | 2020-01-26 17:16 | NUR ---
MED REC COMPLETE
--- NOTE | 2020-01-26 17:52 | NUR ---
PT STATING THERE IS NO WAY HE CAN EAT, SIPPING 7UP, C/O ABD PRESSURE, BELCHING AND REPORTS FLATUS, BOWELS SOUNDS ARE HEARD OCCASIONALLY, CALL PLACED TO DR CASTLE WITH UPDATE, ASKED ME TO GIVE HIM A FLEETS ENEMA, CONT. IVF AND STAY OVER NIGHT.
--- NOTE | 2020-01-26 17:57 | NUR ---
PATIENT DID NOT WANT ANYHTING FOR DINNER, TOO MUCH PAIN, PATIENT DID AGREE TO DRINK SIPS OF 7UP
--- NOTE | 2020-01-26 18:04 | NUR ---
PT IS SITTING UP IN RECLINER WATCHING TV, STATES HE WANTS TO GET ANOTHER WALK IN BEFORE HE DOES AN ENEMA AFTER LAST TIME. STATES HE WILL DO ENEMA ABOUT 8:00 WHEN HE LAYS DOWN.
--- NOTE | 2020-01-26 18:31 | NUR ---
PATIENT AMBULATED ONE LAP, HE WAS IN DISOMFORT, PATIENT WAS ABLE TO BELCH A COUPLE TIMES
--- NOTE | 2020-01-26 19:10 | NUR ---
SHIFT REPORT RECEIVED FROM FABIAN GARZA. PT RESTING IN CHAIR, EYES CLOSED. RR EVEN, UNLABORED. SPOKE WITH MD ABOUT UO, VERBAL ORDER TO CHANGE LR FROM 75ML/HR TO 50ML/HR, ORDER REPEATED BACK IN PERSON. CALL LIGHT IN REACH. 02@ 1.5L.
--- NOTE | 2020-01-26 20:31 | NUR ---
ASSESSMNET COMPLETED. INSPIRATORY AND EXPIRATORY WHEEZING NOTED. BOWEL TONES ACTIVE. SCHEDULED MED PROVIDED. ABD FIRM WITH MODERATE DISTENTION. PT UP TO BR AND BACK TO BED INDEPENDENTLY. IV WNL, FLUSHED WELL. IV FLUIDS INFUSING PER ORDER. NC @1L. NO OTHER NEEDS AT THIS TIME. CALL LIGHT IN REACH.
--- NOTE | 2020-01-26 21:45 | NUR ---
VITALS AND I&OS DONE AND CHARTED, HELPED PT TO HIS BED FROM THE CHAIR PEER HIS REQUEST. FRESH ICE GIVEN. BEDSIDE TABLE AND CALL LIGHT IN REACH. PT NEEDS NOTHING MORE AT THIS TIME.
--- NOTE | 2020-01-27 00:01 | NUR ---
PT RESTING IN BED, EYES CLOSED. RR EVEN, UNLABORED. IV FLUIDS INFUSING PER ORDER. CALL LIGHT IN REACH.
--- NOTE | 2020-01-27 02:05 | NUR ---
PT RESTING IN BED, EYES CLOSED. RR EVEN, UNLABORED. IV FLUIDS INFUSING PER ORDER. CALL LIGHT IN REACH.
--- NOTE | 2020-01-27 04:23 | NUR ---
PT RESTING IN BED, EYES CLOSED. RR EVEN, UNLABORED. IV FLUIDS INFUSING PER ORDER. CALL LIGHT IN REACH.
--- NOTE | 2020-01-27 05:26 | NUR ---
ASSESSMENT COMPLETED. ABD PAIN 10/10, PRN TYLENOL PROVIDED FOR ABD PAIN. LUNGS HAVE INSPIRATORY AND EXPIRATORY WHEEZING IN ALL LOBES. ABD DISTENTION MODERATE, FIRM, BOWEL TONES ACTIVE. PT STATES HE HAS BEEN PASSING GAS. ICE WATER, VS AND I&O PROVIDED BY ANA ROBLERO. NEW BAG OF IV FLUIDS PROVIDED. SPO2 97% ON 1L, PT TITRATED TO RA. NO OTHER NEEDS AT THIS TIME. CALL LIGHT IN REACH.
--- NOTE | 2020-01-27 05:28 | NUR ---
VITALS AND I&OS DONE AND CHARTED. FRESH ICE WATER GIVEN. BEDSIDE TABLE AND CALL LIGHT IN REACH. GARBAGES EMPTIED BY KAYLA AREVALO.
--- NOTE | 2020-01-27 08:39 | NUR ---
SITTING UP FOR BREAKFAST THIS MORNING, ORDERED EGGS AND PANCAKE, TAKING FLUIDS WELL, STATES STILL HAS A LOT OF ABD PRESSURE, OCCASIONAL FLATUS, SOME IMPROVEMENT FROM YESTERDAY. FEELS HUNGRY.
--- NOTE | 2020-01-27 09:20 | NUR ---
REVIEWED DISCHARGE INSTRUCTIONS WITH PATIENT, DISCUSSED MEDICATIONS, SX TO REPORT AND FOLLOWUP APPOINTMENT SCHEDULED. VERBALIZES UNDERSTANDING, DENIES ANY QUESTIONS OR CONCERN. STATES RIDE HOME WILL BE HERE ABOUT 12:30.
--- NOTE | 2020-01-27 12:48 | NUR ---
PT IS UP AND DRESSED, EATING LUNCH AND RIDE HOME WILL BE HERE IN A FEW MINUTES. DENIES ANY NEEDS OR QUESTIONS.
--- NOTE | 2020-01-27 12:52 | NUR ---
PT TO DC LATER TODAY. HE SEEMS EXCITED, HAS REALLY TRIED TO KEEP HIS SENSE OF HUMOR. POSITIVE ATTITUDE, PT REQUESTED PRAYER AND STATED THAT HE PRAYS FOR THE MEDSTAFF OFTEN.
== END 2020-01-27 13:10 | disposition home or self-care (01) ==
LOC: DS 06:32 → OPS 06:32 → MS 17:30 → OPS 01-27 13:10
PROVIDERS: Colon & Rectal Surgery
PROC: 0DBE8ZZ Excision of Large Intestine, Via Natural or Artificial Opening Endoscopic (ICD-10-PCS; 2020-01-25)
PROC: 0DBL8ZZ Excision of Transverse Colon, Via Natural or Artificial Opening Endoscopic (ICD-10-PCS; principal; 2020-01-25 06:45)
DX: Z12.11 Encounter for screening for malignant neoplasm of colon (principal); D12.3 Benign neoplasm of transverse colon; K62.1 Rectal polyp; K57.30 Diverticulosis of large intestine without perforation or abscess without bleeding; K64.4 Residual hemorrhoidal skin tags; N42.89 Other specified disorders of prostate; I10 Essential (primary) hypertension; J44.9 Chronic obstructive pulmonary disease, unspecified; E78.5 Hyperlipidemia, unspecified; E03.9 Hypothyroidism, unspecified; F17.210 Nicotine dependence, cigarettes, uncomplicated; Z88.0 Allergy status to penicillin; Z79.899 Other long term (current) drug therapy
CPT/HCPCS: 74019; 88305; 99153; G0500; J2250; J2405; J3010; J7121

== ENCOUNTER 2021-02-25 05:04 | Inpatient (IN) | payer OTHER ==
[~2021-02-25] VITALS: Ht 175.3 cm; Wt 108.6 kg
[~2021-02-25 05:04] MED LIST changes: +VENTOLIN HFA18 GM INH; +WIXELA 100-501 EACH INH
--- NOTE | 2021-02-25 08:35 | NUR ---
56 YEAR OLD MALE PATIENT ADMITTED TO CCU FROM ED VIA STRETCHER UNDER DR. LEHMAN WITH DR. CASTILLO CONSULTING. DX ABD PAIN WITH GIB. JANES WOKE WITH CRAMPING THIS AM AT APPROX 0100, HAD BRIGHT RED STOOL. HX OF COPD,HTN,HIGH CHOLESTEROL,HERNIA.PATIENT IS ALERT, ORIENTEED AND COOPERATIVE ON ADMIT. C/O MID ABD PAIN. ADMISSION PROCESS STARTED.
--- NOTE | 2021-02-25 08:50 | NUR ---
ABX HANGING. PATIENT DENIES NAUSEA. ATTEMPTED TWICE TO START IV, UNABLE. WILL TRY AGAIN LATER TODAY.
--- NOTE | 2021-02-25 09:30 | NUR ---
DILAUDID 1 MG IV GIVEN FOR ABD PAIN.
--- NOTE | 2021-02-25 10:30 | NUR ---
HAS BEEN ASLEEP SINCE DILAUDID GIVEN. IVF INFUSING AT 125 ML/HR.
--- NOTE | 2021-02-25 11:20 | NUR ---
DR. BRIZUELA HERE TO SEE PATIENT. PATIENT MY HAVE CLEAR LIQUIDS NOW. DENIES NEED FOR PAIN MEDICATION.
--- NOTE | 2021-02-25 15:51 | NUR ---
UP TO BR TO VOID 425 ML CLEAR VERENICE URINE. ASSESSMENT DONE.
--- NOTE | 2021-02-25 16:00 | NUR ---
ASSESSMENT UNCHANGED. HAS BEEN RESTING MOST OF AFTERNOON. DENIES NEED FOR PAIN MEDICATION.
--- NOTE | 2021-02-25 18:00 | NUR ---
RESTING DENIES NEED FOR PAIN MED. CONTINUES TO TAKE SIPS OF CLEAR LIQUID
--- NOTE | 2021-02-25 19:28 | NUR ---
RECEIVED REPORT FROM LUZMA Gupta, @ [phone]. PT IS ON THE PHONE, NO NEEDS AT THIS TIME.
--- NOTE | 2021-02-25 19:40 | NUR ---
PT CALLED, SBA TO BEDSIDE TO USE URINAL, REQUESTED AND RECEIVED ORANGE JELLO. BACK ON THE CELL PHONE.
--- NOTE | 2021-02-25 21:00 | NUR ---
ASSESSMENT COMPLETE. PT DENIES NEED FOR PAIN MEDICATION, NO NAUSEA. LAYING ON LEFT SIDE, PLANNING TO SLELEP.
--- NOTE | 2021-02-25 22:12 | NUR ---
SCD'S ALARMING. PT LAYING ON HIS BACK, RESP EVEN AND UNLABORED. O2 SATS READING 100 ON 2L NC.
--- NOTE | 2021-02-25 22:35 | NUR ---
CALL LIGHT ON. pt REQUESTED TO USE URINAL. 1PA TO STAND. USED URINAL AT BEDSIDE. LIGHT YELLOW URINE. BACK TO BED. FRESH GOWN. NO FURTHER REQUESTS AT THIS TIME. LIGHT YELLOW URINE. CALL LIGHT WITHIN REACH.
--- NOTE | 2021-02-25 23:10 | NUR ---
CHECKED PT. LAYING ON BACK, RESP EVEN AND UNLABORED. HR 100, SATS 95% PER MONITOR.
--- NOTE | 2021-02-26 00:35 | NUR ---
PT CALLED TO USE URINAL. COMPLAINED OF 7/10 ABDOMINAL PAIN. STATES THE PAIN IS THE SAME WHEN HE IS STANDING AND LAYING, TENDER TO TOUCH. SKIN WARM AND DRY. HYPOACTIVE BOWEL SOUNDS, O2 AT 2L CONTINUES, SCD'S PLACED ONCE BACK TO BED. MEDICATED WITH DILAUDID 0.5 MG IV. FLAGYL INFUSING. PT STATED PAIN BETTER PRIOR TO RN LEAVING ROOM, "NOW I CAN GET BACK TO SLEEP". DID COMPLAIN OF BEING TOO HOT, REMOVED BLANKET, COVERED WITH SHEET, FEET UNCOVERED BY CHOICE. IV LEFT HAND, WNL.
--- NOTE | 2021-02-26 01:23 | NUR ---
HEARD VOICE IN ROOM. PT ON PHONE, HEARD PT SAY "I WAS SHITTING BLOOD, BLEEDING FROM MY ASS", TO THE CALLER. O2 NOW READING 96%, HOWEVER, WAS 79, WITH POOR READING. PT HOLDING HIS ARM UP. HAS NOT HAD A BOWEL MOVEMENT SINCE THIS RN CAME ON SHIFT.
--- NOTE | 2021-02-26 02:13 | NUR ---
CHECKED ON PT. LAYING ON BACK, RIGHT ARM ABOVE HEAD, RESP EVEN AND UNLABORED, SLIGHT SNORING SOUNDS HEARD. SATS READING 97% 2LO2, HR 88 SR.
--- NOTE | 2021-02-26 02:54 | NUR ---
MONITOR ALARM SOUNDING, READING O2 AT 79. CHECKED ON PT, MOUTH BREATHING, TOUCHED PT FOOT, O2 SATS INCREASED TO 92%. HAD PT ROLL OVER TO HIS RIGHT SIDE, TO HELP MAINTAIN SATS ABOVE 90%. CURRENTLY READING 97%, 2L02
--- NOTE | 2021-02-26 04:07 | NUR ---
WOKE PT FOR HIS TEMP. GRUNTS IN SLEEP, SL DIFFICULT TO WAKE, STATES HIS PAIN IS AT A 3, MUCH BETTER. DENIED PAIN MED AT THIS TIME. LAYING ON HIS LEFT SIDE. BP CUFF REPOSITIONED ON RIGHT ARM. SCD'S IN PLACE. IV INFUSING PER MARS.
--- NOTE | 2021-02-26 05:15 | NUR ---
LAB IN TO DRAW PT, ASKED PT IF HE WANTED TO USE URINAL, HE SAID YES. VOIDED 400. MORE STEADY ON FEET. COUGHED WHEN HE SAT ON THE EDGE BED, NONPRODUCTIVE. REQUESTED ICE TEA.
--- NOTE | 2021-02-26 05:49 | NUR ---
PT HAD BEEN WATCHING TV PRIOR TO THIS TIME, HOWEVER, IS LAYING ON HIS BACK, TV ON, PT SLEEPING.
--- NOTE | 2021-02-26 06:13 | NUR ---
PT ADMITTED D/T DIVERTICULITIS, BLOOD IN STOOL PRIOR TO ADMISSION. HAS NOT HAVE A BM THIS SHIFT, STOMACH REMAINS PAINFUL TO TOUCH, REQUIRED 0.5 MG DILAUDID X 1 FOR 7/10 PAIN. AT 0410 PT STATED PAIN WAS 3/10 AND DID NOT NEED PAIN MEDICATION. A/O, HAS BEEN ON 2 L NC NON-CHRONIC OXYGEN THIS SHIFT. NOTED THAT WHEN ON HIS BACK, HE MOUTH BREATHS, AND FREQUENTLY SATS DROPPED INTO THE 80'S, 79, THEN WOULD BOUNCE BACK TO THE 90'S. ON ONE OCCASSION RN HAD TO WAKE HIM AND TURN HIM TO HIS SIDE. SBA BEDSIDE TO VOID, QS. STEADIER ON HIS FEET BY 0410 COMPARED TO BEGINING OF SHIFT. STATES HE QUIT SMOKING "WHEN HE CAME TO THE ED". SMOKES ABOUT 1/2 PACK DAILY. LUNGS WITH WHEEZES AND RHONCI THROUGH OUT, HAS A NONPRODUCTIVE COUGH. LR @ 125 INFUSING IN LEFT HAND
--- NOTE | 2021-02-26 06:29 | NUR ---
WOKE PT TO PUT BP CUFF BACK ON. TURNED O2 DOWN TO 1L NC; PT MOSTLY SLEEPLY, BUT WOKE EASILY.
--- NOTE | 2021-02-26 07:02 | NUR ---
PT ON BACK, EYES CLOSED, RESP EVEN AND UNLABORED.
--- NOTE | 2021-02-26 07:30 | NUR ---
PATIENT RESTING, REPORT RECIEVED.
--- NOTE | 2021-02-26 08:15 | NUR ---
TOOK CLEAR LIQ FAIR. STATES PAIN LESS TODAY. DR. LEHMAN HERE TO SEE PATIENT.
--- NOTE | 2021-02-26 08:47 | CONS ---
[facility] [address], [place] [address] Signed DATE OF CONSULTATION: 02/25/2021 REQUESTING PHYSICIAN: Dr. Crenshaw. PROBLEM: Acute diverticulitis and hematochezia. HISTORY OF PRESENT ILLNESS: This 56-year-old white man is self described as "couch surfing" that he is homeless and presents to the emergency room having awakened at approximately 1 a.m. with lower abdominal pain and hematochezia. He had at least three episodes of rectal bleeding before he presented to the emergency room. He was evaluated by Dr. Galeas and admitted by Dr. Crenshaw with complaints of left lower abdominal pain and rectal bleeding as described. He had no associated hematemesis. He has never had rectal bleeding in the past. His evaluation in the emergency room included a CT scan of the abdomen, which demonstrated acute diverticulitis and probable microperforations but without large abscess. The hepatic flexure was noted to have a 9 cm segment with eccentric wall thickening up to 12 mm in depth. Since admission, the patient has had some continued left-sided abdominal pain, but no nausea vomiting and no further hematochezia. The patient tells me he has undergone colonoscopy by Dr. David Turk within the past year or so. Review of the records demonstrates that he did undergo colonoscopy on January 25, [address] Turk with preoperative diagnosis of sigmoid diverticulitis noted in May 2019, and findings at colonoscopy which included moderate left-sided sigmoid diverticulosis. An 8 mm pedunculated polyp at 30 cm, excised with snare technique. A 5 mm polyp in the proximal transverse colon, a 5 mm mid another polyp at 16 cm which was excised. He has noted to have had a right adrenal nodule in the past incidentally noted on CT scan. LABORATORY STUDIES: At admission his lab studies showed an elevated white count of 13.1, repeated at 15.3, hematocrit 42.9, subsequently 35.9. His INR was normal and COVID serology is negative. PAST MEDICAL HISTORY: Significant predominantly for obesity. He is also self described as having "COPD." The patient continues to smoke up until the time of admission today. He has had right collarbone surgical repair and hernia repair in the past. Medical problems additionally include hypertension, hyperlipidemia. Electronically Signed By: PETERSON BRIZUELA MD 02/26/21 0847 PATIENT NAME: BRANDIE MOY CONSULTATION DATE OF : 63 REPORT #: [id number] PHYSICIAN: PETERSON BRIZUELA MD PCP: STEVEN HARRISON MD REPORT IS CONFIDENTIAL AND NOT TO BE RELEASED WITHOUT AUTHORIZATION [facility] [address], [place] [address] Signed FAMILY HISTORY: He has no family history of colon cancer that he is aware of. ALLERGIES: Has allergy to penicillin (hives). MEDICATIONS: His medicines at home include fluticasone, atorvastatin, and lisinopril. REVIEW OF SYSTEMS: He denies any shortness of breath or chest pain. He has had no diaphoresis. No hematemesis. No nausea or vomiting. His pain is dominantly in the central mid abdomen. He has had hematochezia, but none in the past several hours. PHYSICAL EXAMINATION: GENERAL: This is an obese white male with a full ruiz. He does not look systemically toxic. Trachea is midline. CHEST: Clear. HEART: Regular without murmur. ABDOMEN: Obese, but most notably with tenderness in the left lower abdomen. There is no palpable mass. I detect no ascites. EXTREMITIES: Show no clubbing, cyanosis, or edema. IMAGING DATA: His abdominal CT scan was reviewed, which confirms the findings of rather typical appearing acute sigmoid diverticulitis. I do not entirely appreciate the issue of the thickening of the hepatic flexure of the colon as was described by the radiologist. There is certainly no sign of generalized free air. He does have notable diverticulosis of the sigmoid colon and some fat stranding in the region of the sigmoid colon. ASSESSMENT: The patient dominantly has acute sigmoid diverticulitis (recurrent). Microperforation is essentially the underlying disorder of diverticulitis and the radiographic findings showed no sign of generalized free air nor abscess collection for which operative intervention would be required. I would recommend continued IV antibiotics. I believe he can possibly tolerate clear liquids for comfort, but absolutely would avoid a high-fiber diet for the next few weeks actually. He may be well advised to have repeat colonoscopy, though he has had that in the past year. This is predominantly related to the question of source of bleeding and also CT scan findings showed thickened area of colon on the right side. Electronically Signed By: PETERSON BRIZUELA MD 02/26/21 0847 PATIENT NAME: BRANDIE MOY CONSULTATION DATE OF : 63 REPORT #: [id number] PHYSICIAN: PETERSON BRIZUELA MD PCP: STEVEN HARRISON MD REPORT IS CONFIDENTIAL AND NOT TO BE RELEASED WITHOUT AUTHORIZATION [address] [address] Signed It is uncommon for acute diverticulitis to present with rectal bleeding as well as abdominal pain. The possibility of neoplasia still must be considered on that basis. Review of the CT shows quite clearly the sigmoid diverticulitis and the area of thickening of the hepatic flexure is less clear to me. I will review this with the radiologist. PLAN: I will continue to follow the patient with Dr. Crenshaw during this hospitalization. MD MADY Beckford/VICTORIAL /[id number] cc: MD Ronaldo Fried MD Copies: RONALDO CRENSHAW MD ~ Electronically Signed By: PETERSON BRIZUELA MD 02/26/21 0847 PATIENT NAME: BRANDIE MOY CONSULTATION DATE OF : 63 REPORT #: [id number] PHYSICIAN: PETERSON BRIZUELA MD PCP: STEVEN HARRISON MD REPORT IS CONFIDENTIAL AND NOT TO BE RELEASED WITHOUT AUTHORIZATION
--- NOTE | 2021-02-26 10:30 | NUR ---
NO CHANGES. CONTINUES TO SIT IN CHAIR.
--- NOTE | 2021-02-26 12:59 | NUR ---
TAKING CLEAR LIQ DIET. DENIES NAUSEA. DENIES NEED FOR PAIN MEDICATION.
--- NOTE | 2021-02-26 14:02 | NUR ---
AMBULATED FROM ROOM 129 TO ROOM 130 AND BACK. C/O FEELING LIGHTHEADED WITH AMBULATION, ALSO HAD INCREASED SHORTNESS OF BREATH. BACK TO BED W/O INCIDENT. HAS OCC LOOSE COUGH.
--- NOTE | 2021-02-26 15:03 | NUR ---
SPOKE WITH PATIENT IN ROOM. PATIENT LIVES NORMALLY BY "COUCH HOPPING". RIGHT NOW HE HAS HIS BROTHERS ADDRESS LISTED WHERE HE GETS HIS MAIL. HE IS STAYING THERE A LOT HIS BROTHER RECENTLY AND HE HAS BEEN HELPING TO CLEAN OUT THE HOUSE. HE DENIES USING ANY DME. HE DOES HAVE ACCESS TO WALKER FROM FAMILY IF NEEDED. IS UNEMPLOYED. "TRYING TO GET DISABILITY". DOES NOT DRIVE. KNOWS OF NOTHING HE NEEDS TO GO HOME SAFELY AT THIS TIME. STATES ONLY REQUEST "IS SOME REAL FOOD". PATIENT IS STILL TAKING CL LIQUIDS. HE UNDERSTANDS WHY BUT "ISN'T VERY TASTY".
--- NOTE | 2021-02-26 15:12 | NUR ---
CALLED [facility] AND SPOKE WITH PRITI. PATIENT DOES NOT HAVE ASSIGNED METAL OR WOOD BLOCKER. HE DOES RECEIVE MEDICAL COVERAGE AND GETS MAXIMUM SNAP BENEFITS.
--- NOTE | 2021-02-26 16:20 | NUR ---
ASSESSMENT DONE. DENIES NEED FOR PAIN MEDICATION. DR. LEHMAN AWARE OF MOST RECENT CBC.
--- NOTE | 2021-02-26 17:00 | NUR ---
TRANSFER ORDERS TO MED-SURG RECIEVED. PATIENT IS SITTING UP IN CHAIR. TELE #[address]
--- NOTE | 2021-02-26 17:30 | NUR ---
REPORT TO MED-SURG.
--- NOTE | 2021-02-26 17:48 | NUR ---
REPORT RECEIVED PT TRANSFERRED VIA RECLINER TO MED-SURG. PT CONTINUES UP IN THE CHAIR WITH CLEAR LIQUID TRAY, WATCHING TV. CALL LIGHT IN HAND, ORIENTED TO ROOM. DENIES DISCOMFORTS OR NEEDS AT THIS TIME.
--- NOTE | 2021-02-26 19:20 | NUR ---
BEDSIDE REPORT RECEIVED FROM OFFGOING RNSOBIA. PT AND HIS DAUGHTER IN ROOM VISITING. PT AND DAUGHTER PROVIDED WITH EDUCATION REGARDING CURENT ILLNESS. BOTH DENY FURTHER NEEDS AT THIS TIME. CALL LIGHT IN REACH.
--- NOTE | 2021-02-26 21:35 | NUR ---
PT RESTING IN BED WATCHING TV. PT ASSESSMENT COMPLETE. PT REPORTS PAIN TO ABD 5-6/10. PRN ADMINISTERED, SEE EMAR. PT REPORTS OCCASIONAL SOB, CALISTA AFTER COUGHING. OCCASIONAL NONPRODUCTIVE COUGH NTOED DURING ASSESSMENT. LUNG SOUNDS WITH RHONCI AND WHEEZE THROUGHOUT. TELE # [address], SR, HR 90'S. BT'S ACTIVE. PT REPORTS ABD TENDERNESS UPON PALPATION, REPORTS MILD DISTENSION ESPECIALLY TO LLQ. IV FLUSHED, WNL, PATENT. IVF INFUSING ORDERED. ICE WATER REFILLED. PT DENIES FURTHER NEEDS AT THIS TIME. CALL LIGHT IN REACH.
--- NOTE | 2021-02-26 22:32 | NUR ---
CHIROPRACTIC DOCTOR TO ROOM TO REPLACE TELE LEADS. PT RESTING WITH EYES CLOSED, WAKES EASILY. STATES THAT PAIN IS WELL CONTROLLED AT THIS TIME. REQUESTS ICED TEA AND BEEF BROTH. DENIES FURTHER NEEDS CALL LIGHT IN REACH.
--- NOTE | 2021-02-26 22:35 | NUR ---
ICED TEA AND BEEF BROTH PROVIDED.
--- NOTE | 2021-02-26 23:15 | NUR ---
NOTIFIED BY TUBE BLOWER THAT PT'S IV HAS INFILTRATED OLD IV SITE DC'D. INSTRUCTED PT TO KEEP HIS HAND ELEVATED. COOK ROAST ATTEMPTED TO RESTART IV X 2, UNSUCCESSFUL. OTHER RN WILL ATTEMPT. PT DENIES FURTHER NEEDS AT THIS TIME. CALL LIGHT IN REACH.
--- NOTE | 2021-02-27 02:09 | NUR ---
PT ASSESSMENT COMPLETE. PT RESTING IN BED WITH EYES CLOSED, SNORING AUDIBLY. WAKES MINIMALLY DURING ASSESSMENT BUT QUICKLY FALLS BACK TO SLEEP. TELE #[address] HR 90'S-110'S. LUNG SOUNDS WITH WHEEZE AND RHONCI THROUGHOUT, NO COUGH NOTED DURING ASSESSMENT. BT'S ACTIVE. ABDOMEN DISTENDED AND TENDER TO PALPATION. IV FLUSHED, WNL, PATENT. PT DENIES FURTHER NEEDS CALL LIGHT IN REACH. WHITE BOARD UDPATED.
--- NOTE | 2021-02-27 05:05 | NUR ---
PT UTLIZES CALL LIGHT, REQUESTS FOR URINAL TO BE EMPTIED. PT REQUESTS ICE AND ICED TEA. AGREES THAT HE SLEPT VERY WELL OVER NIGHT. DENIES FURTHER NEEDS AT THIS TIME. CALL LIGHT IN REACH.
--- NOTE | 2021-02-27 06:36 | NUR ---
PT AWARE PT IS HEADED TO SURGERY. PLANS TO BE HERE NEAR [id number]
--- NOTE | 2021-02-27 07:26 | NUR ---
pt resting soundly at time of shift exchange. left undisturbed
[2021-02-27] MEDS ORDERED: VENTOLIN HFA18 GM INH (09:44)
--- NOTE | 2021-02-27 09:45 | NUR ---
MED REC COMPLETE
--- NOTE | 2021-02-27 10:00 | NUR ---
PT UP IN THE CHAIR SELF ENTERTAINING AMBULATES THE PAYAN WITH STAFF RETURNS TO CHAIR
--- NOTE | 2021-02-27 10:00 | NUR ---
PATIENT AMBUALTED IN HALLWAY 1 1/2 LAPS, SBA. PATIENT NOW IN CHAIR, RN IN ROOM. CALL LIGHT IN REACH. NO FURTHER NEEDS AT THIS TIME.
--- NOTE | 2021-02-27 11:12 | NUR ---
PT IS UP IN THE CHAIR APPEARS SOUND ASLEEP SNORING SOFTLY. PT HAS DENIED ANY DISCOMFORTS THIS SHIFT, CONTINUES TO TOLERATE CLEAR LIQUIDS WITHOUT C/O.
--- NOTE | 2021-02-27 13:00 | NUR ---
Spoke with pt and he is staying with his sister in law, his brother recently passed. He is essentially homeless and couch surfs. He is assisting his sister in law to go through his brother's belongings. He states his SATURNINO is also recovering from a fx leg. He does not use any DME. He uses food stamps and also assisted with [employer] for utility costs. Plans on returning to [facility] on discharge. Denies needs.
--- NOTE | 2021-02-27 13:20 | NUR ---
PT UP IN THE CHAIR EATING JELLO DENIES PAIN OR NEEDS OF
--- NOTE | 2021-02-27 14:35 | NUR ---
DR LEHMAN IN TO SEE PT, ORDERS WRITTEN. PT UP AMULATES THE PAYAN WITH STAFF. EDUCATION PROVIDED R/T DIETARY ORDERS FOOD ORDERED
--- NOTE | 2021-02-27 17:43 | NUR ---
PT AWAKE IN CHAIR PLAYING GAMES ON IPAD. CALL LIGHT WITHIN REACH. NO FURTHER NEEDS AT THIS TIME.
--- NOTE | 2021-02-27 18:52 | NUR ---
PT UP TO THE CHAIR AND ABLE TO HAVE LOW FIBER EVENING MEAL. PT DENIES PAIN OR NAUSEA AND ATE 100% OF HIS HAMBURGER. CONTINUES UP IN THE CHAIR CALL LIGHT IN REACH.
--- NOTE | 2021-02-27 19:25 | NUR ---
REPORT RECEIVED FROM KAYLA RAMSAY. pt SITTING UP IN CHAIR. ICE TEA PROVIDED REQUESTED. NO ADDITIONAL NEEDS. IVF INFUSING WNL ORDERED. CALL LIGHT IN REACH.
--- NOTE | 2021-02-27 21:00 | NUR ---
V/S AND I&O'S DONE AND CHARTED. EMPTIED URINAL. PAUL PUDDING. MILK, JELLO AND ICED TEA PROVIDED.
--- NOTE | 2021-02-27 21:57 | NUR ---
pt AWAKE RESTING IN BED. IV SITE FLUSHED WNL, IV MEDICATION ADMINISTERED WNL. NEW BAG IVF INFUSING WNL. pt RATES PAIN 4/10 IN MID ABDOMEN. pt DENIES NEED FOR PAIN MEDICATION. BOWEL TONES ACTIVE, ABD SOFT, TENDER. CALL LIGHT IN REACH. LIGHTS OFF IN ROOM.
--- NOTE | 2021-02-27 23:49 | NUR ---
CHECKED ON pt. RESTING IN BED WITH EYES CLOSED, RR 18. LIGHTS OFF IN ROOM. BREATHING UNLABORED.
--- NOTE | 2021-02-28 01:18 | NUR ---
CALL LIGHT ANSWERED. URINAL EMPTIED. ICED TEA AND SPRITE PROVIDED REQUESTED. CALL LIGHT IN REACH. NO ADDITIONAL NEEDS.
--- NOTE | 2021-02-28 03:14 | NUR ---
pt RESTING IN BED WITH EYES CLOSED. BREATHING UNLABORED. LIGHTS OFF IN ROOM. CALL LIGHT IN REACH.
--- NOTE | 2021-02-28 05:30 | NUR ---
CHARGE ATTENDANT IN ROOM. pt AWAKE, DROWSY. DENIES ANY PAIN. ABD SOFT, DISTENDED. TENDER IN LLQ WITH PALPATION. BOWEL TONES ACTIVE X 4. URINAL EMPTIED. VSS. SNACK PROVIDED REQUESTED BY ANNIKA PIPER. CALL LIGHT IN REACH.
--- NOTE | 2021-02-28 07:39 | NUR ---
Shift report received from KAYLA Cadet, pt resting in bed w/ call light in reach. Eyes closed, RR even and unlabored.
--- NOTE | 2021-02-28 08:30 | NUR ---
PT SITTING UP IN CHAIR, EATING BREAKFAST, W/ CALL LIGHT IN REACH. MORNING ASSESMENT COMPLETE AND SCHEDULED MEDS GIVEN PER PROVIDER ORDERS. IV FLUIDS INFUSING PER PROVIDER ORDER. PT DENIES ANY PAIN, NAUSEA, OR OTHER NEEDS AT THIS TIME.
--- NOTE | 2021-02-28 10:30 | NUR ---
PT SITTING UP IN CHAIR W/ CALL LIGHT IN REACH, WATCHING TV. DIETARY CALLED TO SAY PT'S LUNCH ORDER WOULD PUT HIM OVER HIS ALLOWED AMOUNT OF FIBER, PT INFORMED OF THIS AND PT REODERED LUNCH THAT DOES NOT EXCEED THE ALLOTED AMOUNT OF FIBER, PER PROVIDER ORDER. PT DENIES ANY NEEDS AT THIS TIME.
--- NOTE | 2021-02-28 11:24 | NUR ---
PT UP IN THE HALLS FOR A WALK AROUND THE NURSE STATION X2. PT IN GOOD SPIRITS AND ABLE TO CHAT THE ENTIRE TIME WHILE KEEPING A GOOD PACE. PT NOW BACK IN ROOM CHATTING WITH NEPHEW. CALL LIGHT WITHIN REACH. PLANS FOR A SHOWER LATER. NO FURTHER NEEDS AT THIS TIME.
--- NOTE | 2021-02-28 12:00 | NUR ---
PT SITTING UP IN CHAIR W/ CALL LIGHT IN REACH. PT USING HIS IPAD, DENIES ANY NEEDS AT THIS TIME.
--- NOTE | 2021-02-28 13:36 | NUR ---
THIS ARCHITECT INTERNSHIP SET TOWELS, SHAMPOO, A NEW GOWN, AND SOCKS IN THE BATHROOM FOR PT. IV WAS COVERED WITH A GLOVE. ANNIKA TUTTLE PROVIDED A SHOWER CHAIR. PT TOOK SHOWER INDEPENDENTLY. THIS ARCHITECT INTERNSHIP AND ANNIKA TUTTLE CHANGED THE BED LINENS. PT REPORTED BLOOD FROM RECTUM. THIS ARCHITECT INTERNSHIP NOTIFIED KAYLA LEYVA. PT IS NOW IN BED WITH NEW GOWN ON, BRIEF AND SOCKS. CALL LIGHT WITHIN REACH. BATHROOM IS CLEANED UP. NO FURTHER NEEDS AT THIS TIME.
--- NOTE | 2021-02-28 14:00 | NUR ---
PT SITTING UP IN CHAIR USING HIS IPAD, CALL LIGHT IN REACH. PT HAS NO NEEDS AT THIS TIME.
--- NOTE | 2021-02-28 14:14 | NUR ---
PATIENT ON A LOW-FIBER DIET. HE IS TOLERATING IT WELL. HE SAID HE HAS NEVER HAD DIVERTICULITIS BEFORE. 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 HE DOES NOT EAT MANY VEGETABLES AT ALL. DOES EAT CANNED FRUIT AND APPLESAUCE. HE DOESN'T EAT BREAKFAST VERY OFTEN. LUNCH OR DINNER MAY BE A JALAPENO CHEDDAR SAUSAGE DOG OR A MEATBALL SANDWICH. HE STATES HE DRINKS A LOT OF WHOLE MILK. HE HAS NO TEETH SO RAW VEGGIES ARE OUT FOR HIM. HE DOES EAT BANANAS SOMETIMES. I PROVIDED HIM WITH A HANDOUT ON LOW-FIBER NUTRITION THERAPY. EXPLAINED THAT HE WILL NEED TO AVOID ANYTHING WITH SKINS, NUTS, OR SEEDS, AND ANY WHOLE GRAINS. HE DOES NOT EAT MANY OF THESE FOODS ANYWAY. FOODS RECOMMENDED LIST PROVIDED. PATIENT STATES HIS [id number] WILL PROBABLY HELP HIM STICK TO THIS LOW-FIBER DIET FOR A COUPLE OF WEEKS. MY NAME AND OFFICE # PROVIDED IN CASE MORE QUESTIONS ARISE IN THE FUTURE.
--- NOTE | 2021-02-28 14:59 | NUR ---
Pt ambulating in the hallway, no change in plan for dc.
--- NOTE | 2021-02-28 17:09 | NUR ---
Pt sitting up in chair watching tv and playing games on ipad. call light w/ in reach.
--- NOTE | 2021-02-28 18:19 | NUR ---
Pt up in chair for majority of shift. Pt A+O x3, calls appropriately. SBA/IND to bathroom, and uses urinal as well. VSS on Ra. Sufficient nutritional and fluid intake, as well as sufficient urine out put.
--- NOTE | 2021-02-28 20:20 | NUR ---
PT CALLED TO SAY HE WAS DONE WITH THE TOILET, BLOOD IN THE TOILET, RN INFORMED AND WILL BE IN TO CHECK WITH PT, GOING TO GET VITALS
--- NOTE | 2021-02-28 21:24 | NUR ---
PATIENT HAD SOME BLOODY DISCHARGE IN THE TOILET ABOUT AN HOUR AGO PER DESKTOP ENGINEER AND PATIENT. PATIENT'S VS ARE STABLE AND NO C/O PAIN. PM MEDS GIVEN. INFORMED PATIENT TO PLEASE CALL IF HE HAS ANYMORE BLOODY DISCHARGE SO THIS RN CAN SEE IT. PATIENT AGREED. PATIENT GIVEN A NEW GLASS OF TEA AND ICE TO CHEW ON FROM ANNIKA CORREIA. PATIENT HAS NO OTHER NEEDS AT THIS TIME. CALL LIGHT IS IN REACH.
--- NOTE | 2021-02-28 23:30 | NUR ---
PATIENT RESTING QUIETLY IN BED IN LOW FOWLERS POSITION, EYES CLOSED, RESPIRATIONS REGULAR AND EVEN, CALL LIGHT IS IN REACH.
--- NOTE | 2021-03-01 00:17 | NUR ---
PATIENT STILL RESTING QUIETLY IN LOW FOWLERS POSITION IN BED TURNED TO HIS LEFT, EYES ARE CLOSED, RESPIRATIONS ARE REGULAR AND EVEN. PATIENT'S JOSEMANUEL LIGHT IS IN REACH.
--- NOTE | 2021-03-01 01:31 | NUR ---
PATIENT IS RESTING QUIETLY ON HIS LEFT SIDE, EYES CLOSED, RESPIRATIONS REGULAR AND EVEN AND CALL LIGHT IS IN REACH.
--- NOTE | 2021-03-01 02:45 | NUR ---
PATIENT REMAINS TO REST QUIETLY ON HIS LEFT SIDE WITH HIS EYES CLOSED, RESPIRATIONS ARE REGULAR AND EVEN, AND CALL LIGHT IS IN REACH.
--- NOTE | 2021-03-01 03:56 | NUR ---
PATIENT SLEEPING AT THIS TIME, EYES CLOSED, RESPIRATIONS REGULAR AND EVEN, AND CALL LIGHT IS IN REACH.
--- NOTE | 2021-03-01 06:10 | NUR ---
PATIENT HAS SLEPT WELL MOST OF THE NIGHT. PATIENT IS VOIDING QUANTITY SUFFICIENT AND SAYS HE HAD A BM LAST NIGHT,"DROPPED TWO LOGS". BOWEL TONES ARE ACTIVE AND PATIENT HAS HAD NO PAIN. VS ARE STABLE AND PATIENT IS ANXIUS TO HAVE BREAKFAST. PER PATIENT AND ANNIKA CORREIA SOME BRIGHT RED BLOOD WAS SEEN IN THE TOILET WHEN PATIENT HAD HIS BOWEL MOVEMENT, BUT THIS RN DID NOT SEE IT. PATIENT'S ICE REFILLED AND HAS NO OTHER CARE NEEDS AT THIS TIME. CALL LIGHT IS IN REACH.
[2021-03-01] MEDS ORDERED: METRONIDAZOLE250 MG PO (07:17)
[2021-03-01] MEDS ORDERED: CIPROFLOXACIN500 MG PO (07:17)
--- NOTE | 2021-03-01 07:24 | NUR ---
Shift report received from KAYLA Betancourt. Pt sitting up in chair w/ call light in reach. Pt denies any needs at this time.
--- NOTE | 2021-03-01 08:13 | NUR ---
Uses call light to inform staff he has had another bowel movement. Stool is large, formed and dark brown with bright red blood streaking noted. Patient sitting up in bed, eating breakfast at this time. Denies other needs. Call light in reach, bed rails up X2.
--- NOTE | 2021-03-01 08:30 | NUR ---
PT RESTING IN BED SAFELY W/ CALL LIGHT IN REACH. MORING ASSESMNET COMPLETE AND SCHEDULED MEDS GIVEN PER PROVIDER ORDERS. PT DENIES ANY NEEDS AT THIS TIME.
--- NOTE | 2021-03-01 10:50 | NUR ---
DC instructions given to patient. Verbalizes understanding.
--- NOTE | 2021-03-01 10:54 | NUR ---
Taken to personal vehicle by Nilson Starr CNA, and COURTNEY'd to home with family member.
== END 2021-03-01 10:50 | disposition home or self-care (01) | DRG 378 ==
LOC: ED 05:04 → CCU 08:07 → MS 08:07
PROVIDERS: ADMIT Internal Medicine; ATTEND Internal Medicine
DX: K57.21 Diverticulitis of large intestine with perforation and abscess with bleeding (principal); D62 Acute posthemorrhagic anemia; Z20.822 Contact with and (suspected) exposure to COVID-19; E66.9 Obesity, unspecified; J44.9 Chronic obstructive pulmonary disease, unspecified; F17.210 Nicotine dependence, cigarettes, uncomplicated; K42.9 Umbilical hernia without obstruction or gangrene; I10 Essential (primary) hypertension; E78.5 Hyperlipidemia, unspecified; Z88.0 Allergy status to penicillin; Z59.0 Homelessness; Z86.010 Personal history of colon polyps; Z98.890 Other specified postprocedural states; Z79.51 Long term (current) use of inhaled steroids; Z79.899 Other long term (current) drug therapy; Z79.82 Long term (current) use of aspirin; Z68.35 Body mass index [BMI] 35.0-35.9, adult
CPT/HCPCS: 74022; 74177; 80048; 80053; 83605; 83690; 85025; 85610; 85651; 85730; 86850; 86900; 86901; 86922; 96375; 99285-25; C9113; C9803; J0744; J1170; J2405; J3480; J7030; J7060; J7121; Q9967; U0003

== ENCOUNTER 2024-01-30 21:51 | Inpatient (IN) | payer OTHER ==
[~2024-01-30] VITALS: Ht 175.3 cm; Wt 129.2 kg
[~2024-01-30 21:51] MED LIST changes: +METRONIDAZOLE250 MG PO
[2024-01-30] MEDS ORDERED: ALBUTEROL/IPRATROPIUM 3 ML NEB INH PRN (22:00)
[2024-01-30 22:10] LABS: BASOPHILS 0.5 % (0-2); EOSINOPHILS 2.3 % (0-6); HEMATOCRIT 45.9 % (35.0-50.0); HEMOGLOBIN 14.8 g/dL (12.0-18.0); LYMPHOCYTES 7.6 % (24-44); MCH 30.6 (27-36); MCHC 32.3 g/dl (30-36); MCV 94.7 fl (81-99); MONOCYTES 10.6 % (0-12); PLATELET COUNT 300 K/uL (140-440); RBC 4.85 M/ul (4.3-5.7)
[2024-01-30] MEDS ORDERED: ZITHROMAX250 MG PO (22:17)
[2024-01-30 22:37] LABS: ALBUMIN 3.2 g/dL (3.4-5.0); ALBUMIN/GLOBULIN RATIO 0.71 (1.1-2.4); ANION GAP 6.9 (7-21); BILIRUBIN, TOTAL 0.2 ng/dL (0.2-1.0); BUN/CREATININE RATIO 12.12 (6.0-28.6); CALCIUM 8.7 mg/dL (8.5-10.1); CREATININE, SERUM 0.99 mg/dL (0.70-1.30); MAGNESIUM 1.8 mg/dL (1.8-2.4); POTASSIUM 3.9 mmol/L (3.5-5.1); PROTEIN, TOTAL 7.7 g/dL (6.4-8.2)
[2024-01-30] MEDS ORDERED: LACTATED RINGER'S 1,000 ML IV ONE (22:45)
[2024-01-30] MEDS ORDERED: methylPREDNISolone SOD SUCC 125 MG/2 ML VIAL IV ONE (22:45)
[2024-01-30 23:08] LABS: LACTIC ACID, BLOOD 1.4 mmol/L (0.4-2.0)
[2024-01-30] MEDS ORDERED: FUROSEMIDE 40 MG/4 ML VIAL IV ONE (23:45)
[2024-01-30] MEDS ORDERED: ondansetron HCL 4 MG/2 ML VIAL IV PRN (23:45)
[2024-01-30] MEDS ORDERED: ACETAMINOPHEN 325 MG TAB PO PRN (23:45)
[2024-01-31] VITALS (15 sets, daily range): BP systolic 120–167; BP diastolic 73–97
[2024-01-31] MEDS ORDERED: DAPTOmycin 500 MG/10 ML VIAL IV SCH ×3 (00:15→21:00)
[2024-01-31] MEDS ORDERED: DAPTOmycin 500 MG/10 ML VIAL IV ONE (00:45)
[2024-01-31 01:01] LABS: INFLUENZA B NAA NEGATIVE (NEGATIVE); RESPIRATORY SYNCYTIAL VIR NAA NEGATIVE (NEGATIVE)
--- NOTE | 2024-01-31 01:51 | NUR ---
REPORT RECEIVED FROM ED RN CHARANJIT AND THEN pt BROUGHT TO MS FLOOR FROM ED BY THIS RN. ADMISSION COMPLETED AND REPORT GIVEN TO PRIMARY RN MICKEY. pt HAS REDDNESS UNDER PANNUS AND VARIOUS WOUNDS AND SCABS TO BLE. pt UP SBA TO VOID VIA URINAL AND BACK IN BED. TELE IN PLACE, SINUS TACH. pt ORIENTED TO ROOM AND POC DISCUSSED. CALL LIGHT IN REACH. 2LNC IN PLACE.
--- NOTE | 2024-01-31 03:32 | NUR ---
UP TO BEDSIDE TO USE URINAL. PT TOLERATES FAIR WITH SHOB ON 2L NC. PT STATES NO OTHER NEEDS. CALL LIGHT IN REACH, RAILS UP.
--- NOTE | 2024-01-31 04:14 | NUR ---
PT UP TO BSC AND BACK TO BED WITH JAZMYN GARZA. PT BACK TO BED, RAILS UP, BED ALARM ON, CALL LIGHT IN REACH.
--- NOTE | 2024-01-31 05:18 | NUR ---
CONFIRMED WITH RT PATRICIA SHE COMPLETED pt's EKG IN THE ED PRIOR TO pt's ARRIVAL TO FLOOR.
[2024-01-31 05:43] LABS: BASOPHILS 0.2 % (0-2); HEMOGLOBIN 15.1 g/dL (12.0-18.0); MCH 30.6 (27-36); MCHC 32.2 g/dl (30-36); MONOCYTES 0.9 % (0-12); NEUTROPHILS 95.9 % (39-80); PLATELET COUNT 294 K/uL (140-440); RBC 4.95 M/ul (4.3-5.7); RDW 14.1 (10.5-15.0)
[2024-01-31 06:00] LABS: ALBUMIN 3.1 g/dL (3.4-5.0); ALBUMIN/GLOBULIN RATIO 0.67 (1.1-2.4); ANION GAP 3.4 (7-21); BILIRUBIN, TOTAL 0.3 ng/dL (0.2-1.0); BUN/CREATININE RATIO 11.5 (6.0-28.6); CALCIUM 8.7 mg/dL (8.5-10.1); CREATININE, SERUM 1.13 mg/dL (0.70-1.30); MAGNESIUM 1.6 mg/dL (1.8-2.4); POTASSIUM 4.4 mmol/L (3.5-5.1); PROTEIN, TOTAL 7.7 g/dL (6.4-8.2)
--- NOTE | 2024-01-31 06:51 | NUR ---
PT TAKEN TO CT IN WC ON 2L O2, PT TOLERATED WELL. PT BACK TO BED. SNACKS PROVIDED. PT STATES NO OTHER NEEDS. CALL LIGHT IN REACH.
--- NOTE | 2024-01-31 07:44 | NUR ---
REPORT RECEIVED FROM NIGHT RN - PT RESTING IN BED WITH EYES CLOSED, RR EVEN AND UNLABORED WITH 2L 02 NC IN NOSE . CALL LIGHT IN REACH.
--- NOTE | 2024-01-31 08:11 | NUR ---
med rec complete.
[2024-01-31] MEDS ORDERED: ondansetron HCL 4 MG/2 ML VIAL IV PRN (08:30)
[2024-01-31] MEDS ORDERED: MAGNESIUM SULFATE 2 GM/50 ML BAG IV ONE (08:30)
[2024-01-31] MEDS ORDERED: BENZONATATE 100 MG CAP PO PRN (08:30)
[2024-01-31] MEDS ORDERED: FLUTICASONE PROPIONATE 50 MCG BTL NAS PRN (08:30)
--- NOTE | 2024-01-31 09:15 | NUR ---
ASSESSMENT COMPLETE- PT AWAKES WITH STRONG PHYSICAL STIMULI AND APPEARS QUITE DROWSY, HOWEVER QUICKLY JUMPS OUT OF BED WITH SENSATION OF NEEDING TO URINATE. PT IMPULSIVE AND NOT FOLLOWING DIRECTIONS. SPEECH IS GARBLED, UNABLE TO TELL IF THIS IS DUE SOLEY TO LACK OF TEETH. PT QUICKLY FALLS BACK ASLEEP AND ALSO AT TIMES IS CLOSING HIS EYES TO AVOID MY QUESTIONS AND DIRECTIONS. MINIMALLY PARTICIPATING IN ASSESSMENT. 2+ EDEMA TO MID THIGHS IN BOTH LEGS, STASIS SORES NOT LEAKING AT THIS TIME. WARM RED AREA UNDER PANIS WITH HARD INDURATION OF LOWER BELLY, CLEANED. PT SINUS TACH ON TELE. RT UPDATED ON THIS BEHAVIORAL HEALTH CLINICIAN.
--- NOTE | 2024-01-31 10:19 | NUR ---
RN ROUNDING ON PT - MAG INFUSION COMPLETE, PT SALINE LOCKED. ABG DRAWN BY RT PER VERBAL ORDER FROM MD. PT CONTINUES TO REST HEAVILY IN BED, CPOX IN PLACE, 1.5L VIA NC IN NOSE. CALL LIGHT IN REACH. BED ALARM ON.
[2024-01-31 10:20] LABS: BASE EXCESS, BLOOD GAS 7.3 mmol/L (-2-2); HCO3, BLOOD GAS 37.8 mmol/L (22-26); O2 SATURATION, BLOOD GAS 86.5 % (95.0-100.0); PCO2, BLOOD GAS 80.2 mmHg (35-45); PH, BLOOD GAS 7.28 (7.35-7.45); PO2, BLOOD GAS 55 mmHg (80-100); TOTAL CO2, BLOOD GAS 40.2
[2024-01-31] MEDS ORDERED: methylPREDNISolone SOD SUCC 40 MG/ML VIAL IV SCH (10:30)
[2024-01-31] MEDS ORDERED: ALBUTEROL SULFATE 0.083% 3 ML VIAL INH PRN (10:30)
--- NOTE | 2024-01-31 11:19 | NUR ---
BIPAP IN PLACE WITH SETTINGS SET BY RT, THIS RN AT BEDSIDE WHILE PT REMAINS DROWSY, MINIMAL EYE OPENING RESPONSE WHEN ASKED. DOES DEMONSTRATE PURPOSEFUL MOVEMENT WITH HANDS AND ARM TO BE ABLE TO PULL MASK OFF BY SELF. MALE PUREWIK IN PLACE.
[2024-01-31] MEDS ORDERED: VENTOLIN HFA18 GM INH (11:20)
[2024-01-31] MEDS ORDERED: IPRAT-ALBUT 0.5-3 ML INH (11:21)
[2024-01-31] MEDS ORDERED: IBU600 MG PO (11:22)
[2024-01-31] MEDS ORDERED: K-TAB ER20 MEQ PO (11:23)
[2024-01-31] MEDS ORDERED: WIXELA 500-501 EACH INH (11:23)
[2024-01-31 11:53] LABS: BASE EXCESS, BLOOD GAS 8.7 mmol/L (-2-2); HCO3, BLOOD GAS 38.5 mmol/L (22-26); O2 SATURATION, BLOOD GAS 93.1 % (95.0-100.0); PH, BLOOD GAS 7.31 (7.35-7.45); PO2, BLOOD GAS 68 mmHg (80-100); TOTAL CO2, BLOOD GAS 40.8
[2024-01-31] MEDS ORDERED: ACETAMINOPHEN 500 MG TAB PO PRN (12:00)
[2024-01-31] MEDS ORDERED: ALBUTEROL/IPRATROPIUM 3 ML NEB INH SCH (12:00)
--- NOTE | 2024-01-31 12:14 | NUR ---
CALL PLACED TO MD TO UPDATE ON REPEAT ABG AND PT STATUS. ADMIT ORDERS TO CCU PLACED. ABX COVERAGE REVIEWED. NEW ORDERS ENTERED BY MD. AVIATION TECHNICIAN AND PROFESSOR OF PHILOSOPHY UPDATED.
[2024-01-31] MEDS ORDERED: NYSTATIN CREAM 30 GM TUBE TOP SCH (12:15)
[2024-01-31] MEDS ORDERED: MICONAZOLE NITRATE 1 EA BTL TOP SCH (12:30)
--- NOTE | 2024-01-31 12:51 | NUR ---
DAUGHTER UPDATED VIA PHONE CALL - ALL QUESTIONS ANSWERED.
--- NOTE | 2024-01-31 13:15 | NUR ---
PT TRANSPORTED TO CCU WITH THIS RN AND LABORER WHARF ON BIPAP. REPORT GIVEN TO KAYLA NATION. PT MORE ALERT WITH TRANSFER AND ANSWERING QUESTIONS.
--- NOTE | 2024-01-31 13:32 | NUR ---
PATIENT ARRIVES FROM MED/SURG ROOM 112 TO ROOM 129 AT 1320 FOR A COPD EXACERBATION. PATIENT ON BIPAP WITH SETTINGS OF 22/10 AND 32%. PT AWAKENS TO VOICE, ANSWERING QUESTIONS CORRECTLY, BUT IS STILL DROWSY. PT DOES ENDORSE THAT HE IS HUNGRY. PT DENIES PAIN. MALE PUREWICK IN PLACE AND SUCTION TURNED ON. ON ASSESSMENT, PT NOTED TO HAVE VERY RED LOWER LEGS WITH OPEN AREAS, MOST SIGNIFICANTLY ON RIGHT LOWER LEGS, WITH SOME DRAINING OF CLEAR FLUIDS. UNDER PANNUS ALSO RED. PT REMAINS IN SINUS TACH, HR 100-110s. BP UPON ARRIVAL 120/84. PLAN OF CARE DISCUSSED.
--- NOTE | 2024-01-31 13:42 | NUR ---
PT IN TRENDING THE RIGHT WAY IN THE RESPONCE TO THE BIPAP, WILL CONTINUE TO MONITOR
[2024-01-31] MEDS ORDERED: ENOXAPARIN SODIUM 40 MG/0.4 ML SYR SUB-Q SCH (14:00)
[2024-01-31] MEDS ORDERED: CEFEPIME HCL/D5W 2 GM/100 ML PIGGYBACK IV SCH (14:00)
[2024-01-31] MEDS ORDERED: PANTOPRAZOLE SODIUM 40 MG/10 ML VIAL IV SCH (14:00)
--- NOTE | 2024-01-31 16:16 | NUR ---
PATIENT TAKEN OFF BIPAP AROUND 1430 TO TAKE A COUPLE DRINKS OF WATER. PT IS AWAKE, CONVERSES WITH THIS RN, ABLE TO DRINK SOME WATER AND ABLE TO EAT A PUDDING. PT DOES FALL BACK ASLEEP FAIRLY QUICKLY. ABOUT 15 MINS AFTER EATING, PLACED BACK ON BIPAP. SETTINGS REMAINS 22/10 AND 32%. WHILE OFF BIPAP, PT REQUIRING 3 L NC TO KEEP SP02 >90%. PT ALSO REMAINS TACHYCARDIC, CURRENTLY 110s. PT HAS YET TO VOID SINCE COMING OVER TO CCU. WILL ASSESS. SP02 96% CURRENTLY. LUNGS SOUNDS HAVE SOME EXP WHEEZING AND OVERALL TIGHTNESS SOUNDING. WILL CONTINUE TO MONITOR.
--- NOTE | 2024-01-31 16:49 | NUR ---
MED REC COMPLETE
[2024-01-31 17:12] LABS: BASE EXCESS, BLOOD GAS 8.5 mmol/L (-2-2); HCO3, BLOOD GAS 37.2 mmol/L (22-26); O2 SATURATION, BLOOD GAS 95.7 % (95.0-100.0); PCO2, BLOOD GAS 68.7 mmHg (35-45); PH, BLOOD GAS 7.34 (7.35-7.45); PO2, BLOOD GAS 77 mmHg (80-100); TOTAL CO2, BLOOD GAS 39.3
[2024-01-31 17:13] LABS: OXYGEN RECEIVED, BLOOD GAS 4L
[2024-01-31] MEDS ORDERED: FUROSEMIDE 40 MG/4 ML VIAL IV ONE (18:00)
--- NOTE | 2024-01-31 18:19 | NUR ---
PATIENT MORE AWAKE AND CONVERSIVE. PT ABLE TO EAT HIS DINNER 100%. DR. THOMAS BACK IN TO SEE PATIENT AND DISCUSS PLAN OF CARE. PATIENT TO HAVE AN ABG IN THE AM. IV ABX CONTINUE. PT'S ABG AT 1700 SHOWS SIGN OF IMPROVEMENT. WOUND CULTURED AND SENT TO LAB WITH WEEPING DRAINAGE. PT HAS DEEP EDEMA FROM THE LOWER LEGS UP TO MID THIGH LEVEL. 40 MG IV LASIX TO BE GIVEN.
--- NOTE | 2024-01-31 19:15 | NUR ---
PATIENT GIVEN IV LASIX. PUREWICK IN PLACE BUT NOT CONTAINING THE URINE VERY WELL, SO THIS WAS D/C. PT HAD 200 ML IN PUREWICK PLUS A LARGE INCONTINENCE ON CHUX PAD. NEW PAD PLACED UNDER PATIENT. PT WILL LET US KNOW WHEN HE HAS TO VOID NEXT. IV CEFEPIME CONTINUES.
[2024-01-31] MEDS ORDERED: BUDESONIDE 0.5 MG/2 ML VIAL INH SCH (20:00)
--- NOTE | 2024-01-31 20:00 | NUR ---
PATIENT FAMILY IN ROOM, DISCUSSED, ILLNESS, CAUSE, TREATMENT. FAMILY HAS MORE QUESTIONS WILL NEED TO LOOK AT HISTORY IN CHART TO ADDRESS, FAMILY SAID HE HAD COUGHED UP BLOOD IN ED, THIS WAS NOT TOLD TO ROSA IN REPORT.
--- NOTE | 2024-01-31 21:30 | NUR ---
FAMILY LEFT FOR NIGHT PATIENT BACK ON BIPAP PER R.T. AFTER SNACK AND WATER, AND VISIT WITH FAMILY. PATIENT REPORTS NO PAIN OR NAUSEA.
--- NOTE | 2024-01-31 22:41 | NUR ---
PATIENT RESTING QUIELTY IN BED ON BIPAP, EYES CLOSED. OCCASSIONALLY TWITCH JERKS. ALERT TO VOICE.
[2024-02-01] VITALS (11 sets, daily range): BP systolic 116–160; BP diastolic 64–84
--- NOTE | 2024-02-01 01:16 | NUR ---
PATIENT REPOSITIONED UP IN BED, HE ASKED TO HAVE BREAK FROM MASK FOR A SNACK AND A DRINK. PROVIDED. NOTIFIED HARSHAD Watson
--- NOTE | 2024-02-01 02:26 | NUR ---
DISCUSSED WITH PATIENT ABOUT PUTTING BIPAP BACK ON, HE ASKED FOR ANOTHER SNACK FIRST PROVIDED, CUP OF PEARS AND APPLE SAUCE.
--- NOTE | 2024-02-01 02:45 | NUR ---
BLE CLEANED WITH SOAP AND WATER. LIGHTLY SCRUBBED WITH GAUZE AND WATER TO REMOVE FLAKING SKIN. RIGHT ANTERIOR LOWER LEG HAS 8.1CM X 11.2CM CELLULITIS WOUND WITH SMALL AMOUNT OF SEROUS DRAINAGE. EDGES APPEAR TO HAVE DRY PEELING SKIN. BASE IS BRIGHT RED, VIABLE. RIGHT MEDIAL LOWER LEG HAS 2.2CM X 6CM CELLULITIS OPEN WOUND WITH A SMALL AMOUNT OF SEROUS DRAINAGE AND FLAKING SKIN NEAR THE EDGES. BASE IS RED, VIABLE. RIGHT FIRST TOE AND BALL OF FOOT HAVE HARD CALLOUSES, LEFT OPEN TO AIR. REDNESS, INTACT AND OPEN BULLA WELL FLAKING SKIN NOTED TO ENTIRE RIGHT LOWER LEG. 2 O'CLOCK AREA HAS A 1CM X1CM AREA OF FIRLY ADHERENT SLOUGH. OPEN WOUNDS COVERED WITH ADAPTIC, ABD PADS. RIGHT LOWER LEG LOOSELY WRAPPED WITH KERLIX AND MARTHA BANDAGE. LEFT ANTERIOR LEG HAD MULTIPLE INTACT BLISTERS AND OPEN BLISTERS. SCANT SEROUS DRAINAGE. ENTIRE AREA RED WITH FLAKING SKIN. LEFT LOWER LATERAL LEG HAS A 3.6CM X 5.1 CM INTACT DRIED BULLA. THESE AREAS COVERED WITH ADAPTIC, ABD PAD, LOOSE KERLIX AND MARTHA BANDAGE. CULTURES PREVIOUSLY SENT BY STAFF TO LAB. LEFT FIRST TOE AND BALL OF FOOT HAVE HARD CALLOUSES LEFT OPEN TO AIR. LEFT LATERAL FOOT HAD A FIRMLY ADHERED SCAB NEAR ANKLE, OPEN TO AIR. PT TOLERATED WELL. WOUND EDUCATION PROVIDED. BEDDING CHANGED. PT STATES NO OTHER NEEDS AT THIS TIME. CALL LIGHT IN REACH.
[2024-02-01 04:52] LABS: BASE EXCESS, BLOOD GAS 10.1 mmol/L (-2-2); HCO3, BLOOD GAS 38.3 mmol/L (22-26); O2 SATURATION, BLOOD GAS 93.9 % (95.0-100.0); PCO2, BLOOD GAS 65.3 mmHg (35-45); PH, BLOOD GAS 7.38 (7.35-7.45); PO2, BLOOD GAS 67 mmHg (80-100); TOTAL CO2, BLOOD GAS 40.3
[2024-02-01 05:36] LABS: BASOPHILS 0.1 % (0-2); HEMATOCRIT 44.6 % (35.0-50.0); HEMOGLOBIN 14.4 g/dL (12.0-18.0); MCH 30.4 (27-36); MCHC 32.2 g/dl (30-36); MCV 94.5 fl (81-99); MONOCYTES 3.5 % (0-12); NEUTROPHILS 94.4 % (39-80); PLATELET COUNT 316 K/uL (140-440); RBC 4.72 M/ul (4.3-5.7); RDW 14.2 (10.5-15.0)
[2024-02-01 05:43] LABS: ANION GAP 5.5 (7-21); BUN/CREATININE RATIO 15.84 (6.0-28.6); CALCIUM 8.7 mg/dL (8.5-10.1); CREATININE, SERUM 1.01 mg/dL (0.70-1.30); MAGNESIUM 2.1 mg/dL (1.8-2.4); POTASSIUM 4.5 mmol/L (3.5-5.1)
--- NOTE | 2024-02-01 06:43 | NUR ---
PATIENT HAS SLEPT WELL OVER SHIFT ON BIPAP, HE HAS HAD THREE BREAKS INCLUDING THIS AM, FOR SNACKS, DRINKS, AND TO USE URINAL. ABG LAB THIS AM SHOWS IMPROVEMENT IN CO2 AND PH. WHILE AWAKE HE HAS BEEN ALERT, ORIENTED AND APPROPRIATE WITH ALL CARES. HE HAS NOT REPORTED ANY PAIN OR NAUSEA OVER NIGHT, HE WAS ASSESSED BY APARTMENT MAINTENANCE SUPERVISOR AND DRESSINGS PLACED, SEE NOTES. HE HAS BEEN VOIDING QUANTITY SUFFICIENT IN URINAL. BREAKFAST IS ORDERED PER HIS REQUEST. HE HAS BEEN REPOSITIONED REGULARLY OVER NIGHT. NEBS FOR CONTINUED DIM/TIGHT/EXPIRATORY WHEEZES. HE HAS PRODUCTIVE COUGH.
--- NOTE | 2024-02-01 08:18 | NUR ---
PT TAKEN OFF BIPAP MASK FOR BREAKFAST. PT AWAKENS EASILY BUT STILL SOMEWHAT DROWSY. PT ORIENTED X4. PT NOW ON 2 L NC. LOWER LEGS WRAPPED PER CARE ATTENDANT. IV ABX CONTINUE. PLAN OF CARE DISCUSSED WTIH PATIENT. BIPAP SETTINGS ARE 35% AND 22/10. PT VOIDING TO URINAL WHEN HE NEEDS TO. WILL CONTINUE TO MO NITOR.
--- NOTE | 2024-02-01 13:05 | NUR ---
PATIENT PLACED BACK ON BIPAP WHILE HE IS TRYING TO REST. PATIENT AGREEABLE TO GET UP TO CHAIR AFTER HIS NAP. HR REMAINS IN THE 100s. SP02 IS CURRENLTY 92%.
[2024-02-01] MEDS ORDERED: levalbuterol HCL 1.25 MG/0.5 ML VIAL INH PRN (13:30)
--- NOTE | 2024-02-01 15:33 | NUR ---
WOUND CARE CONSULTED FOR BLE WOUNDS. HISTORY OF PRESENT ILLNESS: PT IS A 59 YEAR OLD MALE ADMITTED FOR CELLULITIS AND COPD EXACERBATION. WOUND ONSET AND HISTORY: NOTED CHRONIC BLE WOUNDS IN PT HISTORY. UPON ASSESSMENT PT IS ON BIPAP. PT WAS TAKEN OFF OF BIPAP AND INTERVIEW WAS ATTEMPTED, PT UNABLE TO HOLD A CONVERSATION, DROWSY AND OBTUNDED. BIPAP REPLACED. UNABLE TO OBTAIN HISTORY OF WOUNDS BEYOND PT CHART. NOTED IN CHART WOUND CULTURE OBTAINED ON 01/31/24, PENDING. BLOOD CULTURES OBTAINED 01/30/24. PT CURRENTLY RECEIVING FLAGYL, DAPTOMYCIN AND CEFEPIME. PAST MEDICAL HISTORY: COPD, ASTHMA, MORBID OBESITY, HYPERLIPIDEMIA, CHRONIC BLE WOUNDS, SUSPECTED MAGDA. 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 CLASSIFICATION: PARTIAL THICKNESS SIZE: 15 CM X 9 CM X 0.1 CM WOUND BASE: 60% PINK MOIST Clean, non-granular, 40% YELLOW Loosely adherent slough EDGES: INDISTINCT EXUDATE: Serosanguineous , SMALL AMOUNT JOSUE WOUND SKIN: INTACT RONNIE DRY WARM WOUND ASSESSMENT: LEFT MCQUEEN, SUSPECTED ETIOLOGY VENOUS INSUFFICIENCY. CLASSIFICATION: PARTIAL THICKNESS SIZE: 11 CM X 5 CM X 0.1 CM WOUND BASE: %50 PINK, MOIST Clean, non-granular, %50 YELLOW/BROWN, DRY, Adherent slough EDGES: INDISTINCT EXUDATE: Serosanguineous , SMALL AMOUNT JOSUE WOUND SKIN: INTACT RONNIE DRY WARM BLE ASSESSMENT: BILATERAL DP PULSES PALPABLE AND STRONG. SKIN IS WARM AND DRY. NOTED THICKENED TOENAILS. JOURNEYMAN MEAT CUTTER < 3 SECONDS TO BLE. HEMOSIDERIN STAINING NOTED IN BILATERAL GAITER REGION. PROCEDURE: DRESSINGS REMOVED FROM BLE. VASHE SOAK APPLIED WOUND BASES AND ALLOWED TO DWELL. DEBRIDES SOFT LOLLY USED ON RIGHT MCQUEEN WOUND TO ASSIST IN REMOVING LOOSELY ADHERENT SLOUGH AND SKIN FLAKES. FORCEPS USED TO REMOVE LOOSE DEBRIDES. SCATTERED PUSTULES RUPTURED AND CLEANSED AWAY. CLEAN, NON-GRANULAR TISSUE REVEALED UNDER REMOVED SLOUGH. FORCEPS USED TO REMOVE LOOSE SLOUGH FROM LEFT MCQUEEN WOUND BASE. EXPOSED WOUND BASE IS PINK AND NON-GRANULAR. REMAINING WOUND BASE HAS FIRMLY ADHERENT, DESICCATED, STABLE TISSUE. WOUNDS PATTED DRY. SORBACT CONTACT LAYER APPLIED TO EACH WOUND BASE FOLLOWED BY ABD PAD AND GAUZE ROLL. EACH DRESSING SECURED WITH ELASTIC BANDAGE. NOTED 100% DESICCATED WOUND TO RIGHT LOWER MCQUEEN, STABLE, LEFT TYSON. PICTURES OBTAINED AND PLACED IN PAPER CHART. TREATMENT RECOMMENDATIONS WOUND: LEFT AND RIGHT MCQUEEN WOUNDS CLEANSE WITH VASHE AND PAT DRY. PREPARE PERIWOUND SKIN WITH CLEANSING AND PATTING DRY. APPLY SORBACT CONTACT LAYER OVER EACH WOUND BASE, OKAY TO OVERLAP ON TO PERIWOUND SKIN. COVER WITH ABD PAD AND SECURED WITH GAUZE ROLL AND MARTHA ELASTIC BANDAGE. CHANGE DRESSINGS TWICE WEEKLY ON TUESDAYS AND FRIDAYS. GOALS: HEAL AND DECREASE TOPICAL BIOBURDEN.
[2024-02-01] MEDS ORDERED: IPRATROPIUM BROMIDE 2.5 ML VIAL INH SCH (16:00)
--- NOTE | 2024-02-01 16:15 | NUR ---
PRIMARY RN NOTIFIED OF INCREASED AXILLARY TEMP
--- NOTE | 2024-02-01 17:10 | NUR ---
PATIENT UP TO CHAIR FOR DINNER. PT WAS A 1 PERSON HEAVY ASSIST. BED LINENS CHANGED. PT REMAINS ON 2 L NC TO KEEP SP02 >90% AT THIS TIME. PT VOIDS TO URINAL WITH HELP. DR. LASSITER IN TO SEE PATIENT AND PLAN OF CARE DISCUSSED. PT REMEMEBERS HAVING AN ECHO SOMETIME THIS YEAR. PER RECORD, OCTOBER OF 2023 ECHO WAS DONE. PT DENIES PAIN. PT STILL WHEEZING THROUGH OUT LUNG NIEVES. WILL CONTINUE TO MONITOR.
--- NOTE | 2024-02-01 18:15 | NUR ---
PATIENT BACK BED X1 PERSON ASSIST. PATIETN BACK TO WEARING BIPAP NOW. PATIENT ATE 100% OF HIS DINNER. BIPAP SETTINGS REMAINS 35% AND 22/.
--- NOTE | 2024-02-01 19:54 | NUR ---
PATIENT PULLED OF BIPAP MASK, HE SAID, "I NEED A DRINK OFF WATER!" PATIENT PLACED TO 3L OXYGEN N.C. AND PROVIDED WATER.
--- NOTE | 2024-02-01 20:59 | NUR ---
HEART RATE INCREASED TO 130'S INTO TO ASSESS PT, HE ALERT TO THIS RN, HE SAID, "I WAS DREAMING", HEART RATE NO 94/MIN
--- NOTE | 2024-02-01 21:32 | NUR ---
URINAL EMPTIED. pt PROVIDED WITH APPLESAUCE AND PUDDING PER REQUEST. FAMILY IN ROOM. pt DENIES ADDITIONAL NEEDS.
--- NOTE | 2024-02-01 22:02 | NUR ---
PATIENT BACK TO BIPAP NOW, HE IS ALERT AND ORIENTED, TWO GUEST STILL IN ROOM, THEY HAVE BEEN OFFERED WATER/SNACKS/BEDDING DECLINED ALL.
--- NOTE | 2024-02-01 23:16 | NUR ---
REVIEWED ABG OVER PAST TWO DAYS, HE GAVE VERBAL ORDER TO TITRATE DOWN FIO2 TO 25%, ORDERED VBG FOR 0500.
[2024-02-02] VITALS (12 sets, daily range): BP systolic 106–152; BP diastolic 54–92
--- NOTE | 2024-02-02 02:21 | NUR ---
CALL LIGHT ANSWERED, ASSISTED pt TO VOID IN URINAL. PO FLUIDS PROVIDED. pt OFF BIPAP MASK AT THIS TIME. 2L OXYGEN BY NC APPLIED BY RT. CALL LIGHT IN REACH.
--- NOTE | 2024-02-02 03:18 | NUR ---
PATIENT ASKED TO GET UP TO RECLINER, PATIENT NOW UP IN RECLINER.
--- NOTE | 2024-02-02 04:00 | NUR ---
PATIENT AMBULATED AROUND ROOM WITH ONE PERSON ASSIST THEN BACK TO BED, HE REMAINED 90% ON 2L OXYGEN N.C., HIS WORK OF BREATHING IS NOTED TO INCREASE WITH ACTIVITY.
--- NOTE | 2024-02-02 04:23 | NUR ---
PANNUS, SKIN CARE PROVIDED, NOTED OPEN AREA, SMALL AMOUNT OF BLEEDING, WASHED, APPLIED RX POWDER AND PLACED PILLOW CASE IN CREASE TO PREVENT SKIN TO SKIN CONTACT. WOUND CARE CONSULT PLACED TO ASSESS NEED FOR DRESSING.
[2024-02-02 05:02] LABS: PH, VENOUS 7.393 (7.31-7.41)
[2024-02-02 05:04] LABS: BASOPHILS 0.1 % (0-2); EOSINOPHILS 0.4 % (0-6); HEMATOCRIT 44.5 % (35.0-50.0); HEMOGLOBIN 14.4 g/dL (12.0-18.0); LYMPHOCYTES 2.4 % (24-44); MCH 30.3 (27-36); MCHC 32.4 g/dl (30-36); MCV 93.6 fl (81-99); MONOCYTES 2.5 % (0-12); NEUTROPHILS 94.6 % (39-80); PLATELET COUNT 323 K/uL (140-440); RBC 4.75 M/ul (4.3-5.7); RDW 13.8 (10.5-15.0)
[2024-02-02 05:15] LABS: ANION GAP 3.5 (7-21); BUN/CREATININE RATIO 19.56 (6.0-28.6); CALCIUM 8.5 mg/dL (8.5-10.1); CREATININE, SERUM 0.92 mg/dL (0.70-1.30); POTASSIUM 4.5 mmol/L (3.5-5.1)
--- NOTE | 2024-02-02 06:34 | NUR ---
CALL LIGHT ANSWERED. pt ASSISTED TO VOID IN URINAL IN BED. SMALL DRIBBLE OF URINE ON CHUX, CHUX CHANGED. pt ROLLS SIDE TO SIDE. 2L OXYGEN BY NC IN PLACE, SPO2 93%. CALL LIGHT AND PERSONAL SUPPLIES IN REACH.
[2024-02-02] MEDS ORDERED: SENNOSIDES/DOCUSATE 1 EA TAB PO SCH (09:00)
[2024-02-02] MEDS ORDERED: POLYETHYLENE GLYCOL 3350 1 PACKET PO SCH (09:00)
--- NOTE | 2024-02-02 09:40 | NUR ---
DR. LASSITER IN ROOM TO SEE PATIENT AND PLAN OF CARE DISCUSSED. PATIENT WILL TRANSFER TO THE MEDICAL FLOOR ON TELE. PATIENT STATES HE IS FEELING BETTER TODAY. PT WORE BIPAP MASK THROUGH THE NIGHT WELL. WHEN OFF BIPAP, PT NEEDS TO BE 1-2 L NC. HR REMAINS ELEVATED, CURRENTLY 108. PHYS THERAPY HAS PATIENT UP TO CHAIR CURRENTLY. BP MED TO BE STARTED.
[2024-02-02] MEDS ORDERED: lisinopriL 10 MG TAB PO SCH (09:45)
--- NOTE | 2024-02-02 11:00 | NUR ---
Spoke with pt. He cont. to live in his home with 13 steps. Goes upstairs to shower only. Friends live with him and assist. His sister Ashley lehman is a cg and helps him as needed. He has multiple pieces of DME, most was his brothers that . Friends and daughter, shop, clean, and cook for him. He has food stamps and uses the food bank. Friends and family get his food from the food bank. Pt states his house is in disrepair and a friend is remodeling for him. Pt plans on dc to home when cleared medically. Pt states and RT discussed a NIV with him and he is willing use if he doesn't have to use a full face mask. Home when cleared medically.
--- NOTE | 2024-02-02 11:29 | EKG ---
[facility] [address] [facility] [place] [id number] Signed Sinus tachycardia Low voltage QRS Borderline ECG When compared with ECG of 04-OCT-2023 01:51, No significant change was found Confirmed by MIRIAM LASSITER MD ([id number]) on 02/02/2024 11:29:16 AM Electronically Signed By: MIRIAM LASSITER 02/02/24 1129 PATIENT NAME: FARZANEHBRANDIE Electrocardiogram DATE OF : 63 PHYSICIAN: MIRIAM LASSITER REPORT #: [id number] REPORT IS CONFIDENTIAL AND NOT TO BE RELEASED WITHOUT AUTHORIZATION
[2024-02-02] MEDS ORDERED: DEXTROSE 5% 1,000 ML IV PRN (11:45)
[2024-02-02] MEDS ORDERED: IBLOOD GLUCOSE TEST STRIP 1 EA TEST XX PRN (11:45)
[2024-02-02] MEDS ORDERED: DEXTROSE 50% 50 ML SYR IV PRN ×2 (11:45)
[2024-02-02] MEDS ORDERED: GLUCAGON,HUMAN RECOMBINANT 1 MG/ML VIAL SUB-Q PRN (11:45)
[2024-02-02] MEDS ORDERED: FUROSEMIDE 40 MG TAB PO SCH (11:45)
--- NOTE | 2024-02-02 11:50 | NUR ---
VISITED DURING SPIRITUAL CARE ROUNDS. PT RECEIVING NURSING CARE. DID NOT INTERRUPT. PROVIDED PRAYER.
[2024-02-02] MEDS ORDERED: INSULIN LISPRO 100 UNIT/ML ML SUB-Q SCH (12:00)
[2024-02-02] MEDS ORDERED: IBLOOD GLUCOSE TEST STRIP 1 EA TEST XX SCH (12:00)
[2024-02-02] MEDS ORDERED: ALBUTEROL/IPRATROPIUM 3 ML NEB INH SCH (12:00)
--- NOTE | 2024-02-02 13:26 | NUR ---
REPORT RECEIVED FROM KAYLA NATION. PT. WHEELED TO MED SURG ROOM AND ARRIVED AT 1326. VSS. SPO2 90% ON 1L NC. PT. UP TO RESTROOM WITH STANDBY ASSIST. URINATED INDEPENDENTLY. DRIBBLED ON GOWN, GOWN CHANGED. PT BACK TO CHAIR. RESPIRATIONS EVEN AND UNLABORED. PT. DENIES ANY PAIN. CALL LIGHT WITHIN REACH. PT. DENIES ANY NEEDS AT THIS TIME.
--- NOTE | 2024-02-02 15:59 | NUR ---
BLE wrapped. Clean, dry and intact.
--- NOTE | 2024-02-02 16:41 | NUR ---
Contacted Dr. Mckenzie, he will complete paperwork for a NIV.
--- NOTE | 2024-02-02 17:20 | NUR ---
Went into room and pt has visitor at bedside. Visitor brought tray of cookies. Pt. eating chocolate chip cookies. Pt. states he ate ten cookies total.
--- NOTE | 2024-02-02 17:31 | NUR ---
Pt. sitting up in bed eating evening meal. Urinal on bedside table with 475mL of clear, yellow urine. Urine has strong odor. Respirations even and unlabored. Pt. denies any pain. Fresh ice water given. Call light and other needed items within reach. Pt. denies any other needs at this time.
--- NOTE | 2024-02-02 18:29 | NUR ---
WOUND CARE CONSULTED FOR WOUND IN PANNICULUS. HISTORY OF PRESENT ILLNESS: PT IS A 59 YEAR OLD MALE ADMITTED FOR CELLULITIS AND COPD EXACERBATION. PT IS FAMILIAR TO THIS WOUND CARE NURSE. WOUND CARE CONSULT COMPLETED FOR BLE ON 02/02/24. PAST MEDICAL HISTORY: COPD, ASTHMA, MORBID OBESITY, HYPERLIPIDEMIA, CHRONIC BLE WOUNDS, SUSPECTED MAGDA. ALLERGIES: PENICILLINS WOUND ASSESSMENT: MID PANNICULUS, SUSPECTED MOISTURE ASSOCIATED SKIN DAMAGE. CLASSIFICATION: PARTIAL THICKNESS SIZE: 0.4 CM X 3.2 CM X 0.1 CM WOUND BASE: 100% PINK MOIST Clean, non-granular EDGES: OPEN EXUDATE: Serosanguineous , SMALL AMOUNT JOSUE WOUND SKIN: INTACT PINK DRY WARM PROCEDURE: WOUND CLEANSED WITH NS AND PATTED DRY. WOUND COVERED WITH BORDERED FOAM DRESSING. PICTURE OBTAINED AND PLACED IN PAPER CHART. TREATMENT RECOMMENDATIONS WOUND: MID PANNICULUS CLEANSE WITH NS AND PAT DRY. PREPARE PERIWOUND SKIN WITH CLEANSING AND PATTING DRY. APPLY BORDERED FOAM DRESSING. CHANGE DRESSING THREE TIMES WEEKLY ON MONDAYS, WEDNESDAYS AND FRIDAYS. GOALS: HEAL AND PROTECT FORM EXCESS MOISTURE.
--- NOTE | 2024-02-02 18:36 | NUR ---
Pt. came to Medical floor from CCU at 1326. Pt. on 1 liter NC, SPO2 around 90%. Pt. ambulating to restroom with SBA and using urinal at bedside. Expritory wheezes heard bilaterally in upper and lower lungs. On Tele #2, sinus tachycardia, rate 112. Pt. denies any pain. Intake 400mL, output 775mL. Bowel movement X1. Legs wrapped bilaterally, clean, dry, intact. Under pannus cleansed and bordered foam dressing applied. 1700 BG 179, 3 units of Lispro given.
--- NOTE | 2024-02-02 19:25 | NUR ---
REPORT RECEIVED FROM DAY SHIFT RN. PT LYING IN BED ALERT AND ORIENTED. URINAL EMPTIED. NO NEEDS AT THIS TIME. WHITE BOARD UPDATE. CALL LIGHT IN REACH.
--- NOTE | 2024-02-02 21:43 | NUR ---
EVENING ASSESSMENT COMPLETE. SCHEDULED MEDS ADMIN PER EMAR. PT DENIES PAIN OR NAUSEA. DENIES SOB. 1L/NC IN PLACE. SCATTERED WHEEZE HEARD THROUGHOUT. TELE #[address]. HR 100'S. DRESSINGS TO BLE CDI. BLE ELEVATED IN RECLINER. DRESSING UNDER PANNUS CDI. PT DENIES QUESTIONS OR CONCERNS. CALL LIGHT IN REACH.
[2024-02-02] MEDS ORDERED: hydrOXYzine pamoate 25 MG CAP PO PRN (22:00)
--- NOTE | 2024-02-02 22:00 | NUR ---
PT C/O ITCHING, DR LASSITER NOTIFIED, NEW ORDERS FOR HYDROXYZINE 25MG PO Q6PRN ITCHING. PT NOTIFIED
--- NOTE | 2024-02-02 22:13 | NUR ---
PT IN RECLINER CHAIR, LEGS ELEVATED, O2 , CPOX, TELE IN PLACE, C/O ITCHING FROM TOES TO FACE, MEDICATED WITH VISTARIL 25MG PO.
--- NOTE | 2024-02-02 23:33 | NUR ---
PATIENT IS BACK IN BED FROM BEING UP IN THE CHAIR FOR SOME FEW HOURS. DENIES FURTHER CARE OR NEEDS AT THIS TIME. CALL LIGHT AND SIDE TABLE WITHIN REACH.
[2024-02-03] VITALS (11 sets, daily range): BP systolic 118–137; BP diastolic 53–72
--- NOTE | 2024-02-03 00:38 | NUR ---
PT RESTING IN BED WITH EYES CLOSED. RESPIRATIONS EVEN. BIPAP IN PLACE. SpO2 92%. HR LOW 100'S.
--- NOTE | 2024-02-03 02:02 | NUR ---
CPOX ALARMING. SpO2 LOW 80'S ON RA. PT HAD REMOVED BIPAP MASK IN HIS SLEEP. 2L/NC PLACED WHILE PT COUGHING. SpO2 BACK TO LOW 90'S. 2PA TO REPOSITION IN BED. URINAL EMPTIED. PT BACK ON BIPAP AT THIS TIME.
--- NOTE | 2024-02-03 03:42 | NUR ---
BIPAP ALARMING. PT REMOVED MASK, REQUESTING A "BREAK." 2L/NC PLACED.
--- NOTE | 2024-02-03 04:23 | NUR ---
PT RESTING IN BED WITH EYES CLOSED. RESPIRATIONS EVEN. CALL LIGHT IN REACH.
[2024-02-03 05:25] LABS: BASOPHILS 0.2 % (0-2); EOSINOPHILS 0.1 % (0-6); HEMATOCRIT 44.7 % (35.0-50.0); HEMOGLOBIN 14.5 g/dL (12.0-18.0); MCH 30.4 (27-36); MCHC 32.4 g/dl (30-36); MCV 93.8 fl (81-99); MONOCYTES 3.3 % (0-12); NEUTROPHILS 94.4 % (39-80); PLATELET COUNT 299 K/uL (140-440); RBC 4.77 M/ul (4.3-5.7); RDW 14.3 (10.5-15.0)
--- NOTE | 2024-02-03 05:30 | NUR ---
PT AWAKE IN BED. VS AND I&O OBTAINED. IV ABX INFUSING PER ORDER. PT DENIES PAIN OR NAUSEA. 2L/NC IN PLACE. SpO2 >88%. PT DENIES SOB AT REST. SNACK PROVIDED PER REQUEST. NO FURTHER NEEDS.
[2024-02-03 05:35] LABS: ANION GAP 7.4 (7-21); BUN/CREATININE RATIO 17.11 (6.0-28.6); CALCIUM 8.2 mg/dL (8.5-10.1); CREATININE, SERUM 1.11 mg/dL (0.70-1.30); MAGNESIUM 2.1 mg/dL (1.8-2.4); POTASSIUM 4.4 mmol/L (3.5-5.1)
--- NOTE | 2024-02-03 07:05 | NUR ---
Report received from KAYLA Guzman. Pt. resting in bed with eyes closed. Respirations even and unlabored. Pt. on continuous pulse ox, O2 at 92% on 1L. Call light within reach.
--- NOTE | 2024-02-03 07:06 | NUR ---
PT ON 1L/NC THROUGH THE NIGHT NOT 2L/NC CHARTED BY THIS RN.
--- NOTE | 2024-02-03 08:30 | NUR ---
PT. SITTING UP IN BED TO EAT MORNING MEAL. C/O 04/22 PAIN IN ABDOMEN. TYLENOL ADMINISTERED, PT. REPOSITIONED. FRESH WATER GIVEN. CALL LIGHT WITHIN REACH. PT. DENIES ANY OTHER NEEDS AT THIS TIME.
[2024-02-03] MEDS ORDERED: PANTOPRAZOLE SODIUM 40 MG TABEC PO SCH (09:00)
--- NOTE | 2024-02-03 10:26 | NUR ---
VISITED DURING SPIRITUAL CARE ROUNDS. PT APPEARED TO BE SLEEPING. DID NOT DISTURB. PROVIDED PRAYER.
--- NOTE | 2024-02-03 10:30 | NUR ---
Face sheet, rx, note for need, progress notes, VBGs faxed to [facility]. Chart was faxed last night, I called this am and they did not recieve.
--- NOTE | 2024-02-03 10:35 | NUR ---
PT UP IN CHAIR RESTING WITH EYES CLOSED. RESPIRATIONS EVEN AND UNLABORED. NO S/S OF PAIN/ DISTRESS. CALL LIGHT WITHIN REACH.
--- NOTE | 2024-02-03 11:05 | NUR ---
ABDOMINAL BINDER PUT ON, TELE REMOVED PER VERBAL ORDER BY DR. LASSITER. PT STATES PAIN HAS SLIGHTLY IMPROVED 02/20. PT. REQUESTED SNACK, JELLO AND APPLESAUCE GIVEN. PT. SITTING UP IN CHAIR, NO S/S OF PAIN/ DISTRESS. DENIES ANY MORE NEEDS AT THIS TIME. CALL LIGHT WITHIN REACH.
--- NOTE | 2024-02-03 11:31 | NUR ---
UR CLINICAL REVIEW: [facility] [place] FOR INPT [facility] INPT 01/31/24 @ 1023 ORDER MATCHES REG CLINICALS SENT FOR AUTH DISCHARGE TO HOME WHEN STABLE 02/06/24
--- NOTE | 2024-02-03 12:30 | NUR ---
PT. UP IN CHAIR EATING NOON MEAL. CALL LIGHT WITHIN REACH. PT. DENIES ANY OTHER NEEDS AT THIS TIME.
--- NOTE | 2024-02-03 13:35 | NUR ---
PT. IN CHAIR RESTING WITH EYES CLOSED. ATE 100% OF LUNCH TRAY. RESPIRATIONS EVEN AND UNLABORED. NO S/S OF PAIN/ DISTRESS. CALL LIGHT AND NEEDED ITEMS WITHIN REACH.
--- NOTE | 2024-02-03 14:29 | NUR ---
PT RESTING IN CHAIR WITH EYES CLOSED. RESPIRATIONS EVEN AND UNLABORED. 1L NC SPO2 92%. NO S/S OF PAIN/ DISTRESS. CALL LIGHT AND ALL NEEDED ITEMS WITHIN REACH.
--- NOTE | 2024-02-03 15:15 | NUR ---
Spoke with Jacoby from [place]. He believes it will be tomorrow before they hear about auth from [facility] for NIV. Discussed pt cont. to require 1L 02 and Rt has not been able to wean. Will send speak with Doc and request orders for [address] Mckenzie 02 qual entered and notified Samuel from PT.
--- NOTE | 2024-02-03 16:02 | NUR ---
PT. RESTING IN CHAIR WITH EYES CLOSED. SPO2 90% ON 1L NC. NO S/S OF PAIN/ DISTRESS. CALL LIGHT AND NEEDED BELONGINGS WITHIN REACH.
--- NOTE | 2024-02-03 16:30 | NUR ---
KAYLA GOODWIN PREFORMING WOUND CARE ON BLE. PT TOLERATING WELL.
--- NOTE | 2024-02-03 16:40 | NUR ---
DRESSING CHANGE TO BLE WOUNDS DUE. OLD DRESSINGS REMOVED. NOTED DRAINAGE OF WOUNDS HAS DECREASED. RECOMMEOND CHANGE PRIMARY DRESSING TO ADAPTIC. WOUNDS CLEANSED WITH NS FOLLOWED BY VASHE AND PATTED DRY. ADAPTIC APPLIED TO EACH WOUND BASE FOLLOWED BY ABD PAD AND SECURED WITH GAUZE ROLL AND ELASTIC BANDAGE. PT TOLERATED WELL.
--- NOTE | 2024-02-03 19:32 | NUR ---
REPORT RECEIVED FROM DAY SHIFT RN. PT SITTING IN RECLINER ALERT AND ORIENTED. SBA BACK TO BED. GAIT STEADY. NO FURTHER NEEDS. WHITE BOARD UPDATED. CALL LIGHT IN REACH.
--- NOTE | 2024-02-03 22:26 | NUR ---
EVENING ASSESSMENT COMPLETE. SCHEDULED MEDS ADMIN PER EMAR. PT REPORTS ABD/HERNIA PAIN 5/10 AND GENERALIZED ITCHING. PRN'S ADMIN PER EMAR. PT DENIES SOB. 1L/NC IN PLACE. SpO2 88% TO LOW 90'S. OCCASIONAL DRY COUGH NOTED. PT REPORTS SCANT AMOUNT GREENISH YELLOW SPUTUM. EXPIRATORY WHEEZE HEARD THROUGHOUT. CPOX IN PLACE. SBA TO RECLINER. PT DENIES QUESTIONS OR CONCERNS. CALL LIGHT IN REACH.
[2024-02-04] VITALS (9 sets, daily range): BP systolic 106–127; BP diastolic 59–80
--- NOTE | 2024-02-04 00:10 | NUR ---
PT RESTING IN RECLINER WITH EYES CLOSED. FEET ELEVATED. SpO2 92% WITH 1L/NC IN PLACE. HR LOW 100'S. RESPIRATIONS EVEN. URINAL EMPTIED. CALL LIGHT IN REACH.
--- NOTE | 2024-02-04 03:25 | NUR ---
PT RESTING IN RECLINE. SBA TO BED. BIPAP IN PLACE. PT DENIES PAIN OR NAUSEA. DENIES SOB. ASSESSMENT UNCHANGED. URINAL EMPTIED. NO FURTHER NEEDS. CALL LIGHT IN REACH.
[2024-02-04 05:43] LABS: BASOPHILS 0.1 % (0-2); EOSINOPHILS 0.5 % (0-6); HEMATOCRIT 48.7 % (35.0-50.0); HEMOGLOBIN 15.6 g/dL (12.0-18.0); LYMPHOCYTES 2.3 % (24-44); MCH 30.4 (27-36); MCHC 32.1 g/dl (30-36); MCV 94.6 fl (81-99); MONOCYTES 2.8 % (0-12); NEUTROPHILS 94.3 % (39-80); PLATELET COUNT 322 K/uL (140-440); RBC 5.14 M/ul (4.3-5.7); RDW 14.3 (10.5-15.0)
--- NOTE | 2024-02-04 05:51 | NUR ---
PT OOB TO RECLINER WITH SBA. 1L/NC IN PLACE. VS AND I&O OBTAINED, WNL. IV ABX INFUSING PER ORDER. SNACK AND ICE CHIPS PROVIDED PER REQUEST. NO FURTHER NEEDS. CALL LIGHT IN REACH.
[2024-02-04 05:57] LABS: ANION GAP 6.9 (7-21); CALCIUM 8.6 mg/dL (8.5-10.1); MAGNESIUM 2.2 mg/dL (1.8-2.4); POTASSIUM 4.9 mmol/L (3.5-5.1)
--- NOTE | 2024-02-04 07:25 | NUR ---
RPT RECEIVED FROM KAYLA TATE. PT. RESTING IN CHAIR WITH EYES CLOSED. RESPIRATIONS EVEN AND UNLABORED. NO S/S OF PAIN/ DISTRESS. O2 93% ON 1L NC. CALL LIGHT WITHIN REACH.
--- NOTE | 2024-02-04 07:30 | NUR ---
REPORT RECIEVED WITH JADEN RN FROM KAYLA TATE. PT SITTING UP IN RECLINER WITH EYES CLOSED, RR EVEN AND UNLABORED. PT NOTED TO BE ON 1L NC WITH O2 SATS BETWEEN 92-93%. CPOX IN PLACE. NO OTHER NEEDS IDENTIFIED AT THIS TIME. CALL LIGHT IN REACH.
--- NOTE | 2024-02-04 08:28 | NUR ---
BASTING CLEANER ENTERED PT ROOM TO RECORD PT BG LEVEL. PT WAS SLEEPING IN HIS RECLINER. BASTING CLEANER SPOKE LOUDLY MULTIPLE TIMES ASKING IF PT WAS AWAKE AND PT DID NOT RESPOND. BASTING CLEANER MOVED ONTO MOVING PT SHOULDER BACK AND FORTH AND STILL DID NOT RECEIVE A RESPONSE UNTIL SHE BEGAN TO GIVE PT A STERNAL RUB. PT STATED NO COMPLAINTS OR CONCERNS AFTER HE WOKE UP AND HIS CALL LIGHT IS IN REACH
--- NOTE | 2024-02-04 08:47 | NUR ---
ASSESSMENT ON PT COMPLETED. PT SITTING UP IN CHAIR EATING MORNING MEAL. O2 90% ON [address] L. A[address]OMINAL BINDER IN PLACE, PT STATES THAT IS HELPING. PT STATES NO PAIN THIS MORNING. MORNING MEDICATIONS ADMINISTERED SEE MAR. PO MEDS SWALLOWED WITH NO PROBLEMS. PT DENIES ANY NEEDS AT THIS TIME. CALL LIGHT AND NEEDED ITEMS WITHIN REACH.
--- NOTE | 2024-02-04 09:30 | NUR ---
PT SITTING IN CHAIR WATCHING TV. ATE 100% OF BREAKFAST MEAL. 02 90% ON 1L. NO S/S OF PAIN/ DISTRESS. RESPIRATIONS EVEN AND UNLABORED. CALL LIGHT AND ALL NEEDED ITEMS WITHIN REACH.
--- NOTE | 2024-02-04 10:04 | NUR ---
VISITED DURING SPIRITUAL CARE ROUNDS. PT APPEARED TO BE SLEEPING. DID NOT DISTURB. PROVIDED PRAYER.
--- NOTE | 2024-02-04 11:00 | NUR ---
Notified by [employer], 02 has been approved by insurance. Let them know pt is here and may not dc today. They checked and auth for the vent has not been approved at this time. Was able to received form from [employer] for NIV setting. Form given to Dr. Mckenzie. Will fax to [employer] when completed.
--- NOTE | 2024-02-04 11:00 | NUR ---
PT UP TO RESTROOM WITH CAKE PULLER TO HAVE BOWEL MOVEMENT. CALL LIGHT IN REACH IN RESTROOM.
--- NOTE | 2024-02-04 11:45 | NUR ---
PT BACK IN CHAIR AFTER USING RESTROOM. PT. SITTING UP, EYES CLOSED, RESPIRATIONS EVEN AND UNLABORED. CALL LIGHT AND NEEDED ITEMS WITHIN REACH.
--- NOTE | 2024-02-04 12:42 | NUR ---
RECEIVED REPORT FROM KAYLA TALBERT. ASSUMING CARE OF PT WITH KAYLA STANLEY.
[2024-02-04] MEDS ORDERED: CEFEPIME HCL/D5W 1 GM/100 ML PIGGYBACK IV SCH (14:00)
--- NOTE | 2024-02-04 14:23 | NUR ---
PT WORKING WITH PHYSICAL THERAPY.
--- NOTE | 2024-02-04 14:30 | NUR ---
PT BACK TO CHAIR. RESPIRATIONS EVEN AND UNLABORED. FEET ELEVATED. C/O 8/10 LEG PAIN.FRESH ICE WATER GIVEN. CALL LIGHT AND NEEDED BELONGINGS WITHIN REACH.
--- NOTE | 2024-02-04 15:00 | NUR ---
ADMINISTERED TYLENOL FOR LEG PAIN. PT WANTED BACKPACK OUT OF CLOSET. SITTING IN CHAIR EATING FORREST KISSES FROM BACKPACK. ON THE PHONE WITH FAMILY REQUESTING THEY BRING HIM A COCA COLA. CALL LIGHT WITHIN REACH. NO S/S OF PAIN/ DISTRESS.
--- NOTE | 2024-02-04 15:32 | NUR ---
[place] [facility] [place] [facility] SENT FOR REVIEW DISCHARGE IN 24-48 HRS 02/07/24
--- NOTE | 2024-02-04 16:10 | NUR ---
IN ASN IV PUMP ALARMING, RESOLVED. IV INFUSING WNL. PT SITTING UP IN RECLINER. PT VISITING WITH FAMILY. URINAL EMPTIED. NO OTHER NEEDS IDENTIFIED OR REPORTED AT THIS TIME. CALL LIGHT IN REACH.
--- NOTE | 2024-02-04 16:30 | NUR ---
PT HAS FAMILY/ FRIENDS IN ROOM VISITING. FAMILY BROUGHT HIM TWO 2-LITERS OF COCA COLA AND BOX OF PASTRIES. CALL LIGHT WITHIN REACH. PT. DENIES ANY NEEDS AT THIS TIME.
--- NOTE | 2024-02-04 17:17 | NUR ---
PAIN IN LEGS REASSESSED. PT STATES 8/10 PAIN AND THAT TYLENOL DID NOT HELP. PT WAS SITTING IN CHAIR WHEN THIS RN ENTERED THE ROOM WITH LEGS DOWN, RESTING WITH EYES CLOSED. RESPIRATIONS EVEN AND UNLABORED. CPOX 92% ON 1L. LEGS PUT UP IN RECLINER TO HELP WITH PAIN. CALL LIGHT AND NEEDED ITEMS WITHIN REACH.
--- NOTE | 2024-02-04 18:53 | NUR ---
PT. SITTING UP IN CHAIR RESTING WITH EYES CLOSED. RESPIRATIONS EVEN AND UNLABORED. NO S/S OF PAIN/ DISTRESS. WOKE PT UP TO DO DRESSING CHANGE UNDER PANNUS. OLD ALLEVYN REMOVED, NEW ALLEVYN APPLIED. PT. TOLERATED WELL. CALL LIGHT AND NEEDED ITEMS WITHIN REACH.
--- NOTE | 2024-02-04 19:20 | NUR ---
REPORT RECEIVED FROM JADEN GARZA. pt RESTING IN THE CHAIR. pt DENIES ANY NEEDS AT THIS TIME. CALL LIGHT WITHIN REACH.
--- NOTE | 2024-02-04 20:26 | NUR ---
scheduled iv abx infusing as directed per request of primary rn cassandra. pt awake and resting in bed, call light in reach. iv site wnl, flushes easily. track mechanic in room to collect vs. vss.
--- NOTE | 2024-02-04 21:35 | NUR ---
BOOKY CHECKED PT BLOOD SUGAR. BLOOD SUGR WAS 246. RN NOTIFED. PT STATES NO FURTHER NEEDS AT THIS TIME. CALL LIGHT WITHIN REACH.
--- NOTE | 2024-02-04 21:50 | NUR ---
ASSESSMENT AND VITAL SIGNS DONE. pt RESTING IN THE CHAIR. pt STATES HE DOESN'T WANT TO GET TO BED AT THIS TIME. SCHEDULED MEDICATION ADMINISTERED AT THIS TIME. pt DENIES ANY OTHER NEEDS AT THIS TIME. BILAT LE DRESSING CDI. 1LNC pt SATTING AT 90%. CALL LIGHT WITHIN REACH.
--- NOTE | 2024-02-04 23:01 | NUR ---
CALL LIGHT ANSWERED. PT STATED THE NEED TO HAVE A BM. VINER OPERATOR SBA PT WITH IV TOWER TO BATHROOM. PT STATED THAT HE HAD MISSED THE TOILET WHILE URINATING. PT GIVEN NEW GOWN AND NEW SOCKS. PT ASSISTED BACK TO BED. CPOX RECONNECTED. OUTPUT NOTED. PT HAD A LARGE BM. PT STATES NO FURTHER NEEDS AT THIS TIME. CALL LIGHT PLACED WITHIN REACH.
--- NOTE | 2024-02-05 02:30 | NUR ---
IN RM TO HANG IV ABX. pt STATES HE WANTED TO MOVE TO THE RECLINER. THIS RN ASSISTED pt TO CHAIR. 4LNC WITH ACTIVITY. 1LNC WHILE pt WAS IN CHAIR. IV ABX INFUSIING PER ORDER, SEE MAR. WATER REFRESHED X2. pt SAT AT BED SIDE TO USE URINAL. NO OTHER NEEDS AT THIS TIME. CALL LIGHT WITHIN REACH.
--- NOTE | 2024-02-05 03:00 | NUR ---
IV ALARMING RN ANN WENT IN RM TO CHECK ALARM AND NOTICED pt WAS ITCHING AND HAD THE BEGINNINGS OF A RASH. THIS RN WAS CALLED IN RM TO SEE RASH AND WHAT CAN BE DONE. PRN MEDICATION ADMINISTERED FOR ITCHING AND IV ABX STOPPED AT THIS TIME TO SEE IF MEDICATION HELPED. pt DENIES ANY OTHER NEEDS AT THIS TIME. CALL LIGHT WITHIN REACH.
--- NOTE | 2024-02-05 03:39 | NUR ---
CALL PLACED TO MD LASSITER ABOUT pt RASH ON ELBOWS AND UPPER THIGHS AND ITCHING. DOCTOR IS OK WITH DOSE BEING HELD INTIL HE IS ABLE TO ASSESS THE pt.
[2024-02-05 05:29] VITALS: BP 124/73
[2024-02-05 05:32] VITALS: BP 124/73
[2024-02-05 05:32] LABS: BASOPHILS 0.2 % (0-2); EOSINOPHILS 0.4 % (0-6); HEMATOCRIT 47.7 % (35.0-50.0); HEMOGLOBIN 15.5 g/dL (12.0-18.0); LYMPHOCYTES 2.5 % (24-44); MCH 30.6 (27-36); MCHC 32.5 g/dl (30-36); MONOCYTES 3.3 % (0-12); NEUTROPHILS 93.6 % (39-80); PLATELET COUNT 287 K/uL (140-440); RBC 5.07 M/ul (4.3-5.7); RDW 14.4 (10.5-15.0)
[2024-02-05 05:41] LABS: ANION GAP 4.2 (7-21); BUN/CREATININE RATIO 18.26 (6.0-28.6); CALCIUM 8.3 mg/dL (8.5-10.1); CREATININE, SERUM 1.04 mg/dL (0.70-1.30); MAGNESIUM 2.2 mg/dL (1.8-2.4); POTASSIUM 5.2 mmol/L (3.5-5.1)
--- NOTE | 2024-02-05 06:26 | NUR ---
pt RESTED IN THE CHAIR FOR MOST OF THE NIGHT WITH 1LNC SATTING AT 90%. IV ABX STOPPED AT 0300 DUE TO pt HAVING A RASH ON ELBOWS AND TOP OF THIGHS. MD NOTIFIED AND WILL COME ASSESS pt IN MORNING AND TO HOLD DOSE TILL THEN.
--- NOTE | 2024-02-05 07:30 | NUR ---
REPORT RECIEVED FROM KAYLA TORRES. PT RECLINED IN RECLINER RESTING, EYES CLOSED, RR EVEN AND UNLABORED. PT ON 1 L NC WITH O2 SATS AT 94%. NO NEEDS IDENTIFIED AT THIS TIME. CALL LIGHT IN REACH.
--- NOTE | 2024-02-05 08:48 | NUR ---
IN TO ADMINISTER MEDICATIONS, SEE MAR. PT SITTING UP IN RECLINER. EYES CLOSED, RR EVEN AND UNLABORED. PT AWAKENS AND RESPONDS WHEN ADDRESSED. PT DENIES PAIN AT THIS TIME. PT DENIES FEELING SOB AT THIS TIME. PT DENIES ANY CHEST PAIN. PT DENIES NUMBNESS OR TINGLING IN ANY EXTREMITIES AT THIS TIME. PT ON 1L NC WITH O2 SATS AT 92%. ASSESSMENT COMPLETE. LUNG SOUNDS INSPIRATORY AND EXPRITORY WHEEZE THROUGHOUT ALL LOBES. BOWEL TONES ACTIVE. ABD DISTENTION NOTED. PT REPORTING TENDERNESS TO ABD WITH PALPATION. ABD BINDER IN PLACE. DRESSING TO LOWER ABD C/D/I. DRESSINGS TO BILATERAL LEGS C/D/I. PEDAL PULSES PALPABLE AND EQUAL, FAINT. EDEMA NOTED TO BLE 2 PLUS. IV FLUSHES WNL. PT BREAKFAST TRAY PROVIDED. PT DENIES ANY OTHER NEEDS AT THIS TIME. CALL LIGHT IN REACH. PT REMAINS IN RECLINER.
[2024-02-05 09:48] VITALS: BP 140/68
--- NOTE | 2024-02-05 10:00 | NUR ---
Spoke with Jacoby at [facility]. Auth has been completed for NIV and 02. He will deliver and set up today when he knows a dc time. Pt will need to go home with an 02 tank from [facility].
--- NOTE | 2024-02-05 10:42 | NUR ---
Orders for [facility] (pt requested as he has used in the past) wound care from SN, PT, OT completed. F2F signed by Dr. Mckenzie and orders for wound care to start on Friday as this is the first day they will be able to see this pt. Nurses notified. Face sheet, f2f, wound orders, NIV rx and 02 rx faxed with note they will be delivered from [facility] today, H&P, and dc summary faxed to Mariza at [facility]. I called her and they will admit pt on Friday. Pt updated, he has called a ride.
[2024-02-05 10:48] VITALS: BP 140/68
--- NOTE | 2024-02-05 10:54 | NUR ---
IN TO ROUND ON PT. PT SITTING UP IN RECLINER ON CELL PHONE. PT DENIES ANY NEEDS AT THIS TIME. PT ON 1L NC WITH O2 SATS BETWEEN 88-91%. CALL LIGHT IN REACH.
[2024-02-05] MEDS ORDERED: LISINOPRIL10 MG PO (10:56)
[2024-02-05] MEDS ORDERED: LEVOFLOXACIN750 MG PO (11:00)
--- NOTE | 2024-02-05 11:45 | NUR ---
THIS RN TALKED TO DR. LASSITER TO SEE IF DR. LASSITER WOULD LIKE THE PT TO HAVE THE CEFEPIME. VERBAL ORDERS VERIFIED WITH READBACK "GO AHEAD AND GIVE THE CEFEPIME."
--- NOTE | 2024-02-05 11:50 | NUR ---
THIS RN CALLED PHARMACY REGARDING PTs CEFEPIME TO SEE IF MEDICATION CAN BE RAN FASTER SO PT CAN BE DC'd. PER LATOYA, PHARMACY THE MEDICATION CAN BE RAN OVER 30 MINUTES.
--- NOTE | 2024-02-05 12:09 | NUR ---
CEFEPIME WILL BE RAN OVER 30MINUTES TO ACCOMODATE D/C. UPDATED CM ELIESER.
--- NOTE | 2024-02-05 12:15 | NUR ---
IN TO ADMINISTER MEDICATIONS, PT SITTING UP IN RECLINER AND REPSONDS WHEN ADDRESSED. PT REPORTING RIDE IS HERE. INFORMED PT THAT DR. LASSITER WOULD LIKE PT TO RECIEVE ABX PRIOR TO LEAVING AND INFORMED PT THE MEDICATION CAN BE RAN OVER 30 MINUTES. PT CALLS RIDE AND PER PT THE PTs RIDE WILL BE BACK IN 30 MINUTES OR SO. PT DENIES ANY OTHER NEEDS AT THIS TIME. CALL LIGHT IN REACH.
--- NOTE | 2024-02-05 12:40 | NUR ---
IN WITH EVELIO RN TO GO OVER DC PAPERWORK. PT SITTING UP IN RECLINER AND RESPONDS WHEN ADDRESSED. VERBAL AND WRITTEN DC INSTRUCTIONS PROVIDED. QUESTIONS ANSWERED. PT VERBALIZES UNDERSTANDING. BESSY, PHARMACY IN ROOM. PT DENIES ANY OTHER NEEDS FROM THIS RN AT THIS TIME. CALL LIGHT IN REACH.
[2024-02-05 12:59] VITALS: BP 115/61
--- NOTE | 2024-02-05 13:10 | NUR ---
PT WHEELED OUT TO FRONT PTs RIDE IS HERE. PT GOING HOME WITH [employer] FOR O2. PT DENIES ANY QUESTIONS OR CONCERNS AT DC.
== END 2024-02-05 13:10 | disposition home or self-care (01) | DRG 871 ==
LOC: ED 21:51 → MS 21:52 → CCU 01-31 13:30 → MS 02-02 14:00
PROVIDERS: Internal Medicine; ADMIT Family Medicine; ATTEND Family Medicine
PROC: 4A033R1 Measurement of Arterial Saturation, Peripheral, Percutaneous Approach (ICD-10-PCS; principal; 2024-01-31)
PROC: 5A09357 Assistance with Respiratory Ventilation, Less than 24 Consecutive Hours, Continuous Positive Airway Pressure (ICD-10-PCS; 2024-01-31)
PROC: 3E03329 Introduction of Other Anti-infective into Peripheral Vein, Percutaneous Approach (ICD-10-PCS; 2024-01-31)
DX: A41.9 Sepsis, unspecified organism (principal); J96.01 Acute respiratory failure with hypoxia; J96.02 Acute respiratory failure with hypercapnia; J44.1 Chronic obstructive pulmonary disease with (acute) exacerbation; Z68.41 Body mass index [BMI] 40.0-44.9, adult; B37.89 Other sites of candidiasis; L03.115 Cellulitis of right lower limb; L03.116 Cellulitis of left lower limb; J45.909 Unspecified asthma, uncomplicated; E66.01 Morbid (severe) obesity due to excess calories; E83.42 Hypomagnesemia; B95.61 Methicillin susceptible Staphylococcus aureus infection as the cause of diseases classified elsewhere; I10 Essential (primary) hypertension; E78.00 Pure hypercholesterolemia, unspecified; F17.210 Nicotine dependence, cigarettes, uncomplicated; Z98.890 Other specified postprocedural states; Z88.0 Allergy status to penicillin; Z79.899 Other long term (current) drug therapy; Z79.51 Long term (current) use of inhaled steroids; Z79.2 Long term (current) use of antibiotics
CPT/HCPCS: 36415; 36600; 71045; 71260; 80048; 80053; 82803; 83036; 83605; 83735; 83880; 84484; 85025; 85379; 87040; 87070; 87075; 87186; 87205; 87502; 93005; 93010; 94640; 94660; 94667; 94668; 94760; 94761; 94762; 96374; 96375; 97116; 97161; 97530; 99285-25; A9270; G0378; J0692; J0878; J1650; J1815; J1940; J2470; J2919; J3475; J7121; Q0177; Q9967; U0002

== ENCOUNTER 2024-03-06 21:34 | Emergency (ER) | payer OTHER ==
[~2024-03-06] VITALS: Ht 175.3 cm; Wt 125.0 kg
[~2024-03-06 21:34] MED LIST changes: +IBU600 MG PO; +IPRAT-ALBUT 0.5-3 ML INH; +K-TAB ER20 MEQ PO; +LEVOFLOXACIN750 MG PO; +WIXELA 500-501 EACH INH; +ZITHROMAX250 MG PO
--- OUTSIDE RECORDS SUMMARY | 2024-03-06 21:41 | XMS ---
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 PHONE: [phone] Vani has no Care Guidelines for this patient. Phil VISIT COUNT (12 MO.) 3 DORA Agustin ([facility]) 1 [facility] TOTAL 5 NOTE: Visits indicate total known visits. ED/UCC VISIT TRACKING (12 MO.) 03/06/2024 21:35 DORA Jacobo [place] TYPE: Emergency COMPLAINT: - DRESSING CHANGE 03/04/2024 19:13 [facility] TYPE: Emergency DIAGNOSES: - Constipation, unspecified - Unspecified abdominal pain - Abdominal Pain - Hernia 01/30/2024 21:51 DORA Ulrich TYPE: Emergency COMPLAINT: - SHORTNESS OF BREATH 11/02/2023 19:41 Tyler MARTINEZ ([facility] TYPE: Emergency DIAGNOSES: - Localized edema - Leg Swelling - Swelling 10/04/2023 01:27 DORA Ulrich TYPE: Emergency COMPLAINT: - GROIN PAIN DIAGNOSES: - Allergy status to penicillin - Cellulitis of abdominal wall - Cellulitis of left lower limb - Cellulitis of right lower limb - Chronic obstructive pulmonary disease, unspecified - Essential (primary) hypertension - Nicotine dependence, unspecified, uncomplicated - Other skin changes - Pure hypercholesterolemia, unspecified - Ventral hernia without obstruction or gangrene INPATIENT VISIT TRACKING (12 MO.) 01/31/2024 10:23 DORA Jacobo [place] TYPE: Medical Surgical COMPLAINT: - CELLULITIS/COPD EXACERBATION DIAGNOSES: - Acute respiratory failure with hypercapnia - Acute respiratory failure with hypercapnia - Acute respiratory failure with hypoxia - Acute respiratory failure with hypoxia - Allergy status to penicillin - Allergy status to penicillin - Body mass index [BMI] 40.0-44.9, adult - Body mass index [BMI] 40.0-44.9, adult - Cellulitis of left lower limb - Cellulitis of left lower limb - Cellulitis of right lower limb - Cellulitis of right lower limb - Chronic obstructive pulmonary disease with (acute) exacerbation - Essential (primary) hypertension - Essential (primary) hypertension - Hypomagnesemia - Hypomagnesemia - hydroelectric systems technician (current) use of antibiotics - senior living (current) use of antibiotics - senior living (current) use of inhaled steroids - hydroelectric systems technician (current) use of inhaled steroids - Methicillin susceptible Staphylococcus aureus infection as the cause of diseases classified elsewhere - Methicillin susceptible Staphylococcus aureus infection as the cause of diseases classified elsewhere - Morbid (severe) obesity due to excess calories - Morbid (severe) obesity due to excess calories - Nicotine dependence, cigarettes, uncomplicated - Nicotine dependence, cigarettes, uncomplicated - Other mcc (current) drug therapy - Other durability technician (current) drug therapy - Other sites of candidiasis - Other sites of candidiasis - Other specified postprocedural states - Other specified postprocedural states - Pure hypercholesterolemia, unspecified - Pure hypercholesterolemia, unspecified - Sepsis, unspecified organism - Sepsis, unspecified organism - Unspecified asthma, uncomplicated - Unspecified asthma, uncomplicated [email or web address]
[2024-03-06 22:53] VITALS: BP 157/96
== END 2024-03-06 22:55 | disposition home or self-care (01) ==
LOC: ED 21:34
DX: Z48.00 Encounter for change or removal of nonsurgical wound dressing (principal); I10 Essential (primary) hypertension; J44.9 Chronic obstructive pulmonary disease, unspecified; F17.200 Nicotine dependence, unspecified, uncomplicated; Z88.0 Allergy status to penicillin; Z79.899 Other long term (current) drug therapy
CPT/HCPCS: 99282

== ENCOUNTER 2024-03-13 00:49 | Inpatient (IN) | payer OTHER ==
[2024-03-13] VITALS (19 sets, daily range): BP systolic 104–154; BP diastolic 49–132
[~2024-03-13] VITALS: Ht 175.3 cm; Wt 132.9 kg
--- OUTSIDE RECORDS SUMMARY | 2024-03-13 00:51 | XMS ---
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 PHONE: [phone] ESTELITA Power [facility] Current PHONE: Unknown [facility]/Center: Rural [facility] Current \F\ [facility] PHONE: [phone] Vani has no Care Guidelines for this patient. Phil VISIT COUNT (12 MO.) 4 DORA Agustin ([facility]) 1 [facility] TOTAL 6 NOTE: Visits indicate total known visits. ED/UCC VISIT TRACKING (12 MO.) 03/13/2024 00:50 DORA [facility]o [place] TYPE: Emergency COMPLAINT: - SHORTNESS OF BREATH 03/06/2024 21:35 DORA [facility]o [place] TYPE: Emergency COMPLAINT: - DRESSING CHANGE DIAGNOSES: - Allergy status to penicillin - Chronic obstructive pulmonary disease, unspecified - Encounter for change or removal of nonsurgical wound dressing - Essential (primary) hypertension - Nicotine dependence, unspecified, uncomplicated - Other snf (current) drug therapy 03/04/2024 19:13 [facility] TYPE: Emergency DIAGNOSES: - Constipation, unspecified - Unspecified abdominal pain - Abdominal Pain - Hernia 01/30/2024 21:51 DORA [facility]o [place] TYPE: Emergency COMPLAINT: - SHORTNESS OF BREATH 11/02/2023 19:41 Tyler Rizwan NicolaKhoi MAYS [place] ([facility]) TYPE: Emergency DIAGNOSES: - Localized edema - Leg Swelling - Swelling 10/04/2023 01:27 DORA Jacobo [place] TYPE: Emergency COMPLAINT: - GROIN PAIN DIAGNOSES: [...] (primary) hypertension - Hypomagnesemia - Hypomagnesemia - custodial (current) use of antibiotics - custodial (current) use of antibiotics - custodial (current) use of inhaled steroids - custodial (current) use of inhaled steroids - Methicillin susceptible Staphylococcus aureus infection as the cause of diseases classified elsewhere - Methicillin susceptible Staphylococcus aureus infection as the cause of diseases classified elsewhere - Morbid (severe) obesity due to excess calories - Morbid (severe) obesity due to excess calories - Nicotine dependence, cigarettes, uncomplicated - Nicotine dependence, cigarettes, uncomplicated - Other snf (current) drug therapy - Other terminal gauger supervisor (current) drug therapy - Other sites of candidiasis - Other sites of candidiasis - Other specified postprocedural states - Other specified postprocedural states - Pure hypercholesterolemia, unspecified - Pure hypercholesterolemia, unspecified - Sepsis, unspecified organism - Sepsis, unspecified organism - Unspecified asthma, uncomplicated - Unspecified asthma, uncomplicated [email or web address]
[2024-03-13] MEDS ORDERED: ALBUTEROL/IPRATROPIUM 3 ML NEB ONE (01:04)
[2024-03-13] MEDS ORDERED: methylPREDNISolone SOD SUCC 125 MG/2 ML VIAL IV ONE (01:15)
[2024-03-13] MEDS ORDERED: ondansetron HCL 4 MG/2 ML VIAL IV ONE (01:15)
[2024-03-13] MEDS ORDERED: ALBUTEROL/IPRATROPIUM 3 ML NEB INH ONE (01:15)
[2024-03-13 01:57] LABS: BASOPHILS 0.4 % (0-2); EOSINOPHILS 2.5 % (0-6); HEMATOCRIT 40.9 % (35.0-50.0); LYMPHOCYTES 7.9 % (24-44); MCHC 31.8 g/dl (30-36); MCV 94.3 fl (81-99); MONOCYTES 8.9 % (0-12); NEUTROPHILS 80.3 % (39-80); PLATELET COUNT 244 K/uL (140-440); RBC 4.34 M/ul (4.3-5.7); RDW 14.3 (10.5-15.0)
[2024-03-13 02:09] LABS: ALBUMIN 3.2 g/dL (3.4-5.0); ALBUMIN/GLOBULIN RATIO 0.89 (1.1-2.4); ALCOHOL, MEDICAL <3 ng/dL (<3); ALKALINE PHOSPHATASE 71 U/L (46-116); ALT (SGPT) 18 U/L (14-59); ANION GAP 4.2 (7-21); AST (SGOT) 11 U/L (15-37); BILIRUBIN, TOTAL 0.4 ng/dL (0.2-1.0); BUN/CREATININE RATIO 9.19 (6.0-28.6); CALCIUM 9.2 mg/dL (8.5-10.1); CARBON DIOXIDE 41 mmol/L (21-32); CHLORIDE 98 mmol/L (98-107); CREATINE KINASE 41 U/L (39-308); CREATININE, SERUM 0.87 mg/dL (0.70-1.30); GLOMERULAR FILTRATION RATE,EST 99 mL/min (>60); MAGNESIUM 1.5 mg/dL (1.8-2.4); POTASSIUM 4.2 mmol/L (3.5-5.1); PROTEIN, TOTAL 6.8 g/dL (6.4-8.2); TSH, 3RD GENERATION 3.282 uIU/mL (0.358-3.740); UREA NITROGEN 8 mg/dL (7-18)
[2024-03-13 02:17] LABS: LACTIC ACID, BLOOD 0.6 mmol/L (0.4-2.0)
[2024-03-13] MEDS ORDERED: CEFTRIAXONE/SODIUM CHLORIDE 2 GM/100 ML PIGGYBACK IV ONE (02:45)
[2024-03-13] MEDS ORDERED: ALBUTEROL SULFATE 0.5% 2.5 MG/0.5 ML VIAL INH ONE ×2 (02:45→10:30)
[2024-03-13] MEDS ORDERED: LACTATED RINGER'S 1,000 ML IV ONE (02:45)
[2024-03-13 02:55] LABS: BILIRUBIN, URINE NEGATIVE (negative); BLOOD/HGB, URINE NEGATIVE (Negative); KETONE, URINE TRACE (Negative); LEUK ESTERASE, URINE NEGATIVE (negative); NITRITE, URINE NEGATIVE (negative)
[2024-03-13 03:11] LABS: AMPHETAMINES, URINE POSITIVE (NEGATIVE); BARBITURATES, URINE NEGATIVE (NEGATIVE); BENZODIAZEPINE, URINE NEGATIVE (NEGATIVE); BUPRENORPHINE, URINE NEGATIVE (NEGATIVE); CANNABINOID, URINE NEGATIVE (NEGATIVE); COCAINE, URINE NEGATIVE (NEGATIVE); ECSTASY, URINE POSITIVE (NEGATIVE); FENTANYL, URINE NEGATIVE (NEGATIVE); METHADONE, URINE NEGATIVE (NEGATIVE); OPIATES, URINE NEGATIVE (NEGATIVE); OXYCODONE, URINE NEGATIVE (NEGATIVE); PHENCYCLIDINE, URINE NEGATIVE (NEGATIVE)
[2024-03-13] MEDS ORDERED: ACETAMINOPHEN 325 MG TAB PO PRN (03:45)
[2024-03-13] MEDS ORDERED: ondansetron HCL 4 MG/2 ML VIAL IV PRN (03:45)
--- NOTE | 2024-03-13 04:52 | NUR ---
DAUGHTER CAMILLE IN ROOM WITH A FAMILY FRIEND. PHONE NUMBER FOR CAMILLE IS [phone].
--- NOTE | 2024-03-13 05:51 | NUR ---
RESTING, NO DISTRESS, BIPAP IN PLACE, CALMER, NO DISTRESS. NO VOID SINCE ADMISSION. FAMILY IN ROOM
--- NOTE | 2024-03-13 07:10 | NUR ---
recieved report from nurse at 0710 pt is currently asleep in room with bipap o. even and unlabored breathing noted no concerns family memeber in room. call light within reach
--- NOTE | 2024-03-13 07:58 | NUR ---
MICHELLE HAS BEEN UPDATED AND CALL LIGHT HAS BEEN PLACED WITHIN REACH, DAUGHTER IS CURRENTLY IN IN THE ROOM
[2024-03-13] MEDS ORDERED: ALBUTEROL/IPRATROPIUM 3 ML NEB INH SCH ×2 (08:00→10:00)
[2024-03-13] MEDS ORDERED: MAGNESIUM SULFATE 2 GM/50 ML BAG IV SCH (09:00)
[2024-03-13] MEDS ORDERED: AZITHROMYCIN 500 MG in DEXTROSE 5% 250 ML IV SCH (09:19)
[2024-03-13] MEDS ORDERED: CEFTRIAXONE/SODIUM CHLORIDE 2 GM/100 ML PIGGYBACK IV SCH (09:19)
[2024-03-13 09:48] LABS: BASE EXCESS, BLOOD GAS 7.7 mmol/L (-2-2); O2 SATURATION, BLOOD GAS 95.1 % (95.0-100.0); PCO2, BLOOD GAS 90.8 mmHg (35-45); PH, BLOOD GAS 7.24 (7.35-7.45); PO2, BLOOD GAS 74 mmHg (80-100); TOTAL CO2, BLOOD GAS 41.8
[2024-03-13 09:49] LABS: OXYGEN RECEIVED, BLOOD GAS 40%
[2024-03-13] MEDS ORDERED: levalbuterol HCL 1.25 MG/0.5 ML VIAL INH SCH ×2 (10:00→20:00)
[2024-03-13] MEDS ORDERED: ALBUTEROL SULFATE 0.5% 2.5 MG/0.5 ML VIAL ONE (10:26)
--- NOTE | 2024-03-13 11:23 | NUR ---
AT 10:20 PATIENT ARRIVED TO ROOM 128 FROM MED/SURG TRANSPORTED BY ANNIKA, RN AND RT. ARRIVED ON BIPAP 24/10 RATE 24 AND FIO2 40%. PATIENT PLACED ON MONITOR, SINUS TACH WITH A RATE 100-120. PATIENT RESPONDS TO NAME AND DIRECTIONS. REPORT RECEIVED FROM EILEEN GARZA AND RT REPORT RECEIVED FROM CASIMIRO. EXTERNAL CATHETER PLACED, 2 NEW IVS PLACED, IV ABX AND MAGNESIUM INFUSING. REPEAT ABG DRAWN BY RT. PATIENT REMAINS ON BIPAP. ASSESSMENT AND VS CHARTED.
[2024-03-13 11:26] LABS: BASE EXCESS, BLOOD GAS 8.8 mmol/L (-2-2); HCO3, BLOOD GAS 39.8 mmol/L (22-26); O2 SATURATION, BLOOD GAS 94.7 % (95.0-100.0); PCO2, BLOOD GAS 88.8 mmHg (35-45); PH, BLOOD GAS 7.26 (7.35-7.45); PO2, BLOOD GAS 68 mmHg (80-100); TOTAL CO2, BLOOD GAS 42.7
[2024-03-13 11:29] LABS: OXYGEN RECEIVED, BLOOD GAS 40%
[2024-03-13] MEDS ORDERED: ACETAMINOPHEN 650 MG SUPP PR PRN (11:30)
[2024-03-13] MEDS ORDERED: FUROSEMIDE 40 MG/4 ML VIAL IV SCH (11:45)
--- NOTE | 2024-03-13 11:50 | NUR ---
RT UPDATED PROVIDER WITH RESULTS OF ABG. SEE RT NOTES FOR CHANGES. PATIENT AGREES TO SHAVE ATKINS, SHAVED AND MASK ADJUSTED BY RT.
--- NOTE | 2024-03-13 11:53 | NUR ---
TALKED TO DOCTOR WE ARE GOING TO REPEAT ABG AT 1600 LONG PT CONTINUES TO IMPROVE AND EASY TO AROUSE , TREATMENT WILL CONTINUE TO RUN EVERY HOUR , PT MASK ADUSTED WELL SHAVED , INCREASED PRESURE TO IPAP 08/05 PT
[2024-03-13] MEDS ORDERED: PHARMACY RENAL DOSE ADJUSTMENT 1 DOSE MISC PO SCH (12:00)
--- NOTE | 2024-03-13 12:11 | NUR ---
PATIENT REPORTS PAIN AND NAUSEA. EDUCATION PROVIDED BY RN AND RT REGARDING ASPIRATION AND VOMITING. PATIENT VERBALIZED UNDERSTANDING. PATIENT DECLINED PAIN MEDICATION. ASSISTED WITH REPOSITIONING AND HE REPORTED HIS NAUSEA IMPROVED. DR. VASQUEZ NOTIFIED OF WHAT APPEARS TO BE ORAL THRUSH AND YEAST UNDER PANNUS, CONTINUED NAUSEA. ORDER RECEIVED FOR DIFLUCAN, COMPAZINE, RESPIRATORY PANEL AND SPUTUM CULTURE.
[2024-03-13] MEDS ORDERED: FLUCONAZOLE/SOD CHLORIDE 100 ML IV SCH (12:29)
[2024-03-13] MEDS ORDERED: PROCHLORPERAZINE EDISYLATE 10 MG/2 ML VIAL IV PRN (12:45)
--- NOTE | 2024-03-13 13:37 | NUR ---
PATIENT CONTINUES TO REST ON BIPAP. FIO2 DECREASED TO 28% BY RT.
--- NOTE | 2024-03-13 13:49 | NUR ---
NOTED PATIENT TO BE COUGHING. PATIENT STATES "I AM CHOKING". LIPS AND ORAL CAVITY APPEARED DUSKY. O2 SAT DECREASED TO 86%, FIO2 INCREASED TO 32%. RT IN ROOM. PATIENT COUGHED A LARGE AMOUNT OF MUCOUS. ORAL CAVITY SUCTIONED. ENCOURAGED PATIENT TO CONTINUE TO COUGH AND MORE SUCTIONING COMPLETED. O2 IMPROVED TO 100%. O2 97% WITH FIO2 AT 28%.
[2024-03-13] MEDS ORDERED: methylPREDNISolone SOD SUCC 40 MG/ML VIAL IV SCH (14:00)
--- NOTE | 2024-03-13 14:46 | NUR ---
medications reconciled by pharmacy
[2024-03-13 14:48] LABS: INFLUENZA B NAA NEGATIVE (NEGATIVE); RESPIRATORY SYNCYTIAL VIR NAA NEGATIVE (NEGATIVE)
--- NOTE | 2024-03-13 15:18 | NUR ---
PATIENT REMAINS RESTING IN BED WITH EYES CLOSED, BIPAP ON. TOLERATING WELL AT THIS TIME. CALL LIGHT IN REACH.
--- NOTE | 2024-03-13 15:55 | NUR ---
PATIENT DOES NOT WAKE TO VERBAL OR NON-PAINFUL STIMULI. PATIENT GRIMACES AND MOANS TO STERNAL RUB AND PAINFUL STIMULI BUT DOES NOT OPEN EYES OR FOLLOW DIRECTIONS. RT IN ROOM TO OBTAIN ABG, FIO2 INCREASED TO 32% ON BIPAP. RT ATTEMPTED TO ROUSE PATIENT AND PATIENT MUMBLED "I'M AWAKE", HOWEVER HE CONTINUED TO NOT OPEN EYE NOR FOLLOW COMMANDS. ABG SPECIMENT TAKEN TO LAB BY RT.
[2024-03-13 15:57] LABS: BASE EXCESS, BLOOD GAS 10.6 mmol/L (-2-2); HCO3, BLOOD GAS 40.8 mmol/L (22-26); O2 SATURATION, BLOOD GAS 90.6 % (95.0-100.0); PCO2, BLOOD GAS 84.6 mmHg (35-45); PH, BLOOD GAS 7.29 (7.35-7.45); PO2, BLOOD GAS 56 mmHg (80-100); TOTAL CO2, BLOOD GAS 43.5
[2024-03-13 15:58] LABS: OXYGEN RECEIVED, BLOOD GAS 28%
[2024-03-13] MEDS ORDERED: IPRATROPIUM BROMIDE 2.5 ML VIAL ONE (16:13)
[2024-03-13] MEDS ORDERED: MICONAZOLE NITRATE 1 EA BTL TOP SCH (16:15)
--- NOTE | 2024-03-13 16:36 | NUR ---
PATIENT WAKES AND IS RESPONSIVE DURING BED BATH. ORIENTED TO PERSON, PLACE AND YEAR. OPENS EYES TO NAME AND NOW FOLLOWS DIRECTIONS. COMPLETE BED BATH PROVIDED, PARTIAL LINEN CHANGE. REPOSITIONED IN BED WITH PILLOW SUPPORT. PATIENT DENIES NAUSEA AND WHEN ASKED ABOUT PAIN STATES, "IT'S GONE AWAY". DENIES NEEDS OR CONERNS AT THIS TIME. CALL LIGHT IN REACH.
--- NOTE | 2024-03-13 16:45 | NUR ---
TALKED TO DOCTOR GOT VERBAL ORDER TO SWITCH TO Q4 /O2 PRN XOPENEX WITH IPRA QID , CPT /MUCOMIST 300MG / QID /3 DAYS . DOCTOR IS COUGHING UP LARGE AMOUNTS OF SECRETIONS , WE OFFERED TO PLACE VAPOTHERM AT BEDSIDE , DOCTOR WOULD LIKE TO SEE FUTHER PROGRESS AND MORE STABLIZATION ON BIPAP , WILL CONTUE TO MONITOR CLOSELY , CPT ORDER WELL
--- NOTE | 2024-03-13 17:35 | NUR ---
CALL PLACED TO DR. VASQUEZ BY THIS MEDICAL INTERN AND CASIMIRO RT. REVIEWED ABG RESULTS WITH PROVIDER, UPDATED PROVIDER ON PERIOD OF NON-RESPONSIVENESS BUT NOW FULLY AWAKE AND CONVERSANT IN FULL SENTANCES. INQUIRED ABOUT USE OF VAPOTHERM. NO ORDER RECEIVED AT THIS TIME CO2 REMAINS SLIGHTY IMPROVED BUT STILL HIGH. PATIENT TO CONTINUE ON BIPAP. PATIENT HOLLERED FOR ASSISTANCE. ASSISTED WITH MASK REMOVAL BY RT AND PATIENT EXPECTORATED FROTHY WHITE, SLIGHTLY YELLOW SPUTUM. SPECIMEN SENT TO THE LAB.
--- NOTE | 2024-03-13 17:55 | NUR ---
PATIENT NOTIFIED THAT PEOPLE WERE CALLING THE UNIT TO INQUIRE ABOUT HIM. PATIENT STATES "ONLY OWEN, BUDDY AND FOSTER CAN HAVE INFO".
[2024-03-13] MEDS ORDERED: levalbuterol HCL 1.25 MG/0.5 ML VIAL INH PRN (18:00)
--- NOTE | 2024-03-13 19:35 | NUR ---
REPORT RECEIVED FROM DAY SHIFT RN SHAWNA. VISUALIZED PATIENTS SKIN ON BILATERAL LOWER EXTERMITIES WITH SECOND RN. BIPAP IN PLACE. PATIENT STATING HIS MOUTH IS "DRY". MOUTH CARE PROVIDED AND BIPAP PLACED BACK ON. PATIENT TOLLERATING BIPAP WELL THIS TIME. NO FURTHER NEEDS. CALL LIGHT WITHIN REACH.
[2024-03-13] MEDS ORDERED: Acetylcysteine 800 MG/4 ML VIAL INH SCH (20:00)
[2024-03-13] MEDS ORDERED: IPRATROPIUM BROMIDE 2.5 ML VIAL INH SCH (20:00)
--- NOTE | 2024-03-13 20:18 | NUR ---
PATIENT RESTING IN BED. IV SITES PATENT AND WNL. LUNG SOUNDS DIM THROUGHOUT. BOWEL TONES PRESENT X 4 QUADRANTS. REDNESS TO ABDOMEN AND BILATERAL LEGS REMAINS WITHIN THE MARGINS DRAWN. BILATERAL LOWER LEG RENDNESS AND DRYNESS REMAINS. EDEMA NOTED TO BILATERAL LOWER EXTERMITIES. GENERALIZED EDEMA NOTED THROUGHOUT UPPER EXTREMITIES. PATIENT ANSWERS QUESTIONS WHEN PROMPTED. URINE OUTPUT NOTED. BIPAP REMAINS IN PLACE AND FUNCTIONING WNL. NO FURTHER NEEDS AT THIS TIME. CALL LIGHT WITHIN REACH.
--- NOTE | 2024-03-13 20:46 | NUR ---
MD VASQUEZ ON UNIT. DIUSCUSSED THIS RN'S CONCERNS OF NPO AND NO MAINTANCE FLUIDS, CLARIFIED POC WITH MD. MD WOULD LIKE PATIENT TO REMAIN NPO WITH NO MAINTANCE FLUIDS LONG BP AND HR REMAINS WITHIN SAFE LIMITS. MD WOULD LIKE PATIENT TO BE SLIGHTLY "DRY" TO MAINTAIN RESPIRATORY STATUS. ALSO DISCUSSED INTERVENTIONS FOR TACHYCARDIA, MD WOULD LIKE PATIENT TO REMAIN SLIGHTLY TACHY WHILE RESPIRATORY COMPENSATION CONTINUES.
[2024-03-13] MEDS ORDERED: LORazepam 2 MG/ML VIAL IV PRN (21:36)
--- NOTE | 2024-03-13 21:53 | NUR ---
DAUGHTER AND SISTER CALLED FOR UPDATE, UPDATE PROVIDED. ALL QUESTIONS ANSWERED PER PATIENT CARE PLAN. EDUCATIONS PROVIDED PER FAMILY REQUEST TO CO2 LEVELS AND DX. NO FURTHER QUESTIONS.
[2024-03-13] MEDS ORDERED: ADENOSINE 3 MG/ML VIAL IV SCH ×2 (22:00)
[2024-03-13] MEDS ORDERED: MORPHINE SULFATE 4 MG/ML VIAL IV PRN (22:00)
--- NOTE | 2024-03-13 22:06 | NUR ---
PATIENT RESTING IN BED EYES CLOSED, EYES OPEN TO VOICE OF STAFF AT BEDSIDE. ADMINISTRATION OF HS MEDICATIONS, ABG COLLECTED BY HARSHAD Watson PER ORDERS. NO NEW CONCERNS AT THIS TIME. PATIENT IS ON BIPAP AND IS TOLERATING WELL AT THIS TIME.
[2024-03-13 22:09] LABS: BASE EXCESS, BLOOD GAS 14.4 mmol/L (-2-2); HCO3, BLOOD GAS 44.3 mmol/L (22-26); O2 SATURATION, BLOOD GAS 94.3 % (95.0-100.0); PCO2, BLOOD GAS 85.1 mmHg (35-45); PH, BLOOD GAS 7.33 (7.35-7.45); PO2, BLOOD GAS 67 mmHg (80-100); TOTAL CO2, BLOOD GAS 46.9
--- NOTE | 2024-03-13 23:10 | NUR ---
PATIENT ALERT AND ORIENTED, HE ASKED FOR THE T.V. REMOTE, HE SAID "SO I CAN STAY AWAKE" REMOTE PROVIDED.
[2024-03-14] VITALS (17 sets, daily range): BP systolic 104–152; BP diastolic 54–107
--- NOTE | 2024-03-14 01:00 | NUR ---
PATIENT REPOSITIONED IN BED. JOSUE CARE COMPLETED. EXTERNAL MALE CATHERTER ADJUSTED. URINE OUTPUT SUFFICIENT AT THIS TIME. LUNGS CLEAR IN UPPER LOBES DIM LOWER LOBES. PATIENT AWAKE AND ALERT TO ANSWER QUESTIONS APPROPIATELY. PATIENT ASSISTED WITH TURNING DURING REPOSITIONING. NO FURTHER NEEDS AT THIS TIME.
--- NOTE | 2024-03-14 01:36 | NUR ---
PATIENT CALLING OUT. PATIENT WITH PHLEGM IN MOUTH. SUCTION OFFERED AND PROVIDED FOR PATIENT. PATIENT ASSISTING WITH USING YANKER TO SUCTION PHLEGM FROM MOUTH. REDISH/ COLOR NOTED. PATIENT REQUESTING TV REMOTE. REMOTE GIVEN TO PATIENT. BIPAP IN PLACE. NO FURTHER NEEDS AT THIS TIME. CALL LIGHT WITHIN REACH.
--- NOTE | 2024-03-14 01:53 | NUR ---
NOTED PATIENT MOANING AND BIPAP ALARMING FROM NURSES STATION. UPPON ENTERING ROOM PATIENT WITH HANDS ABOVE HEAD PULLING ON BIPAP MASK. PATIENT REPORTS HE IS HAVING PAIN IN HIS ABDOMEN 04/22. MD VASQUEZ NOTIFIED VIA PHONE. NEW ORDERS RECEIVED FOR MORPHINE 2MG IV Q4HR PRN VERIFIED VIA VERBAL READ BACK.
[2024-03-14] MEDS ORDERED: MORPHINE SULFATE 4 MG/ML VIAL IV PRN (02:00)
--- NOTE | 2024-03-14 02:02 | NUR ---
PRN ADMINSTERED. PATIENT RESTING IN BED. CALL LIGHT WITHIN REACH.
--- NOTE | 2024-03-14 03:55 | NUR ---
PATIENT RESTING IN BED, BIPAP IN PLACE. OXYGEN SATURATION WNL. RT IN ROOM WITH PATIENT.
--- NOTE | 2024-03-14 04:50 | NUR ---
PATIENT REPOSITIONED IN BED. LUNGS DIMINISHED THROUGHOUT, CRACKLES NOTED TO LEFT UPPER LOBE. BIPAP IN PLACE, TOLLERATING WELL. FIO2 CHANGED TO 28% TO MAINTAIN APPROPIATE SAO2. MOUTH CARE PROVIDED. NO FURTHER NEEDS AT THIS TIME. CALL LIGHT WITHIN REACH.
[2024-03-14 05:14] LABS: BASOPHILS 0.2 % (0-2); HEMATOCRIT 38.6 % (35.0-50.0); HEMOGLOBIN 12.2 g/dL (12.0-18.0); LYMPHOCYTES 3.2 % (24-44); MCH 29.7 (27-36); MCHC 31.6 g/dl (30-36); MONOCYTES 1.5 % (0-12); NEUTROPHILS 95.1 % (39-80); PLATELET COUNT 276 K/uL (140-440); RBC 4.11 M/ul (4.3-5.7); RDW 14.2 (10.5-15.0)
[2024-03-14 05:27] LABS: ALBUMIN 3.2 g/dL (3.4-5.0); ALBUMIN/GLOBULIN RATIO 0.86 (1.1-2.4); ANION GAP 4.5 (7-21); BILIRUBIN, TOTAL 0.3 ng/dL (0.2-1.0); BUN/CREATININE RATIO 12.35 (6.0-28.6); CALCIUM 9.2 mg/dL (8.5-10.1); CREATININE, SERUM 0.89 mg/dL (0.70-1.30); MAGNESIUM 1.9 mg/dL (1.8-2.4); POTASSIUM 4.5 mmol/L (3.5-5.1); PROTEIN, TOTAL 6.9 g/dL (6.4-8.2)
[2024-03-14 05:59] LABS: BASE EXCESS, BLOOD GAS 17.9 mmol/L (-2-2); O2 SATURATION, BLOOD GAS 90.9 % (95.0-100.0); PCO2, BLOOD GAS 56.5 mmHg (35-45); PO2, BLOOD GAS 48 mmHg (80-100); TOTAL CO2, BLOOD GAS 45.8
--- NOTE | 2024-03-14 06:24 | NUR ---
0600 MEDICATIONS ADMINSTERED. HOB ELEVATED FOR PATIENT TO SIT UP FURTHER IN BED. PATIENT REQUESTING ASSISTANCE WITH ORAL CARE. RN PROVIDED ORAL CARE, PATIENT ABLE TO SUCTION SELF WITH YANKER. NO FURTHER NEEDS AT THIS TIME. CALL LIGHT WITHIN REACH.
--- NOTE | 2024-03-14 07:30 | NUR ---
REPORT RECEIVED FROM COLT GARZA. PT RESTING IN BED WEARING BIPAP 26/10 28%, SPO2 98% AND RR 20, HR 100'S SINUS RHYTHM.
--- NOTE | 2024-03-14 07:43 | NUR ---
RT IN TO DO NEB TX AND ADJUST BIPAP SETTINGS.
--- NOTE | 2024-03-14 08:20 | NUR ---
MD IN ROOM TO ROUNDON PT AND DISCUSS CODE STATUS. BIPAP ROMVED, PT PLACED ON 2L/O2/NC, SATS 94%. PT ABLE TO TALK IN FULL SENTENCES, ALERT AND ORIENTED. MD DISCUSSED POSSIBILITY OF INTUBATION IN THE FUTURE/RISKS/BENEFITS, PT STATED HE WOULD NOT WANT TO BE INTUBATED. MD ORDERS REGULAR DIET, PT WAITING ON BREAKFAST.
--- NOTE | 2024-03-14 09:01 | EKG ---
[facility] [address] [place], [place] [address] Signed Normal sinus rhythm Low voltage QRS Borderline ECG When compared with ECG of 30-JAN-2024 21:54, No significant change was found Confirmed by Karissa Vasquez MD ([id number]) on 03/14/2024 9:00:54 AM Electronically Signed By: KARISSA VASQUEZ 03/14/24 0901 PATIENT NAME: BRANDIE MOY Electrocardiogram DATE OF : 63 PHYSICIAN: KARISSA VASQUEZ REPORT #: [id number] REPORT IS CONFIDENTIAL AND NOT TO BE RELEASED WITHOUT AUTHORIZATION
--- NOTE | 2024-03-14 09:21 | NUR ---
VISITORS IN TO SEE PT FOR A WHILE DURING BREAKFAST AND PT WAS ABLE TO TALK AND INTERACT WITH THEM. PT ATE 100% OF BREAKFAST AND THEN REQUESTED TO GO BACK ON BIPAP, STATES HE IS GOING TO TAKE A NAP. BIPAP REPLACED. AM MEDS GIVEN. CALL LIGHT IN HAND.
--- NOTE | 2024-03-14 09:34 | NUR ---
PT CALLS TO ASK TO SIT UP AT EDGE OF BED, "MY BACK NEEDS TO BREATHE." PT ASSISTED TO SIT AT EDGE OF BED, BED BATH GIVEN. PT REMAINS ON BIPAP DURING THIS TIME. HE APPEARS DROWSY, FALLING ASLEEP WHILE SITTING UP BUT EASILY AROUSABLE. CALL LIGHT IN HAND.
--- NOTE | 2024-03-14 09:55 | NUR ---
PT CALLS TO HAVE HELP LAYING BACK DOWN. LINENS CHANGED, POSITIONED IN BED. REMAINS ON BIPAP. VISITORS IN TO SEE PT.
--- NOTE | 2024-03-14 12:40 | NUR ---
LUNCH NANCY IN TO PT, HE ATE 50% ON NC THEN PLACED BACK ON BIPAP AND ASSISTED TO LAY DOWN. VISITOR IN TO SEE PT AND HE DOES TALK WITH HIM A WHILE. OVER THE LAST TWO HOURS PT HAS BEEN SOMEWHAT RESTLESS, GETTING UP TO SIT AT EDGE OF THE BED THEN LAY DOWN, SEVERAL TIMES. OVERALL HE HAS MAINLY WORN THE BIPAP, BUT DID TAKE IT OFF THE EAT LUNCH BRIEFLY.
--- NOTE | 2024-03-14 14:15 | NUR ---
Patient continually displaying anxiety, SOB and sitting up and laying down frequently within short time period (30 minutes). Patient endorses anxiety, currently tachycardic, and restless. 2mg PRN morphine IV administered to alleviate symptoms. With reassessment patient states relief found. Primary RN updated.
--- NOTE | 2024-03-14 15:13 | NUR ---
IN TO CHECK ON PT, STATES HE IS FEELING LESS RESTLESS. NO REQUESTS AT THIS TIME. CONT TO WEAR BIPAP.
--- NOTE | 2024-03-14 16:21 | NUR ---
PT CALLS D/T "I'M WET"- SMALL WET SPOT NOTED ON SHEET, LINEN CHANGE DONE. PT ALSO WANTING TO SIT UP AT EDGE OF BED- SITTING ON EDGE OF BED WEARING BIPAP WITH CALL LIGHT IN REACH.
--- NOTE | 2024-03-14 18:18 | NUR ---
PT DONE EATING DINNER, ASSISTED TO LIE BACK IN BED, STILL WANTS TO WEAR NASAL CANNULA HIS FRIEND IS IN TO VISIT.
--- NOTE | 2024-03-14 19:31 | NUR ---
PATIENT RESTING QUIETLY IN BED, ON BIPAP OXYGEN SATURATIONS 95%. NO DISTRESS NOTED, HE HAS A MALE VISITOR AT BEDSIDE.
--- NOTE | 2024-03-14 20:30 | NUR ---
CALLED TO REQUEST ANXIETY MEDICATION, PPI, AND DVT PROPHYLAXIS, Shirley PATRICIA SPOKE EARLIER WITH ABOUT ABG TEST, HE TOLD HER TO DO IN THE AM. OTHER NEW ORDER PROVIDED TO THIS RN SEE EMAR.
[2024-03-14] MEDS ORDERED: ENOXAPARIN SODIUM 40 MG/0.4 ML SYR SUB-Q SCH (20:50)
[2024-03-14] MEDS ORDERED: PANTOPRAZOLE SODIUM 40 MG TABEC PO SCH (21:00)
[2024-03-14] MEDS ORDERED: hydrOXYzine pamoate 25 MG CAP PO PRN (21:00)
--- NOTE | 2024-03-14 21:37 | NUR ---
PATIENT ALERT WANTING TO SIT UP TO SIDE OF BED. BIPAP OFF FOR PO MEDICATIONS AND SNACK. PATIENT MAINTAINING ON 3.5L N.C. 95% OXYGEN SATURATION, WHILE EATING AND VISITNG WITH HIS FRIEND AT BEDSIDE. PATIENT VERBALIZED THAT HE HAS INVITED HIS FRIEND TO STAY THE NIGHT.
--- NOTE | 2024-03-14 22:00 | NUR ---
PATIENT BACK INTO BED RESTING ON BIPAP, HE REPORTS HE FEELS COMFORTABLE AT THIS TIME.
[2024-03-15] VITALS (14 sets, daily range): BP systolic 111–159; BP diastolic 63–95
--- NOTE | 2024-03-15 00:15 | NUR ---
PATIENT RESTING QUIELTY IN BED WEARING BIPAP, OXYGEN SATURATION 98% AT THIS TIME. Shirley PATRICIA IN ROOM TO ADMINISTER NEB TX SCHEDULED. ASSESSMENT COMPLETE, NOTED MORE AIR MOVEMENT IN UPPER LOBES BILAT., NO NEW CONCERNS AT THIS TIME.
--- NOTE | 2024-03-15 03:00 | NUR ---
PATIENT ALERT, TRIED TO ADJUST BIPAP MASK. THIS RN INTO PATIENT ROOM TO ASSIST IN ADJUSTING BIPAP MASK, PATIENT REPOSITIONED, NO OTHER REQUESTS AT THIS TIME.
--- NOTE | 2024-03-15 04:00 | NUR ---
PATIENT UP TO SIT AT SIDE OF BED, HE IS ALERT AND ORIENTED PLACED TO 3L OXYGEN N.C. FOR SNACK AND DRINKING WATER, IS CURRENTLY 95% OXYGEN SATURATION.
--- NOTE | 2024-03-15 04:24 | NUR ---
PATIENT STOOD AT BEDSIDE FOR BED LINEN FULL CHANGE, THEN PATIENT ASSISTED BACK INTO BED, MALE LAXMI CHANGED OUT, PATIENT TOLERATED WELL. NEW GOWN OM PATIENT. BLE ELEVATED ON PILLOWS. R.T. IN ROOM TO PLACE BACK TO BIPAP AND ADMINISTER SCHEDULED NEB TX. PATIENT ABLE TO PULL HIMSELF UP IN BED WITHOUT ASSISTANCE. PATIENT VERBALIZED NO FURTHER NEEDS AT THIS TIME.
[2024-03-15 05:27] LABS: BASOPHILS 0.2 % (0-2); EOSINOPHILS 0.4 % (0-6); HEMATOCRIT 39.8 % (35.0-50.0); HEMOGLOBIN 12.9 g/dL (12.0-18.0); LYMPHOCYTES 3.8 % (24-44); MCH 30.1 (27-36); MCHC 32.4 g/dl (30-36); MCV 92.9 fl (81-99); MONOCYTES 3.3 % (0-12); NEUTROPHILS 92.3 % (39-80); PLATELET COUNT 278 K/uL (140-440); RBC 4.28 M/ul (4.3-5.7); RDW 14.3 (10.5-15.0)
[2024-03-15 05:47] LABS: BASE EXCESS, BLOOD GAS 15.3 mmol/L (-2-2); HCO3, BLOOD GAS 40.4 mmol/L (22-26); O2 SATURATION, BLOOD GAS 93.4 % (95.0-100.0); PCO2, BLOOD GAS 49.6 mmHg (35-45); PH, BLOOD GAS 7.52 (7.35-7.45); PO2, BLOOD GAS 58 mmHg (80-100); TOTAL CO2, BLOOD GAS 41.9
[2024-03-15 05:47] LABS: ALBUMIN 3.3 g/dL (3.4-5.0); ALBUMIN/GLOBULIN RATIO 0.89 (1.1-2.4); ANION GAP 8.8 (7-21); BILIRUBIN, TOTAL 0.3 ng/dL (0.2-1.0); BUN/CREATININE RATIO 24.29 (6.0-28.6); CALCIUM 9.2 mg/dL (8.5-10.1); CREATININE, SERUM 1.07 mg/dL (0.70-1.30); MAGNESIUM 1.9 mg/dL (1.8-2.4); PHOSPHORUS, INORGANIC 2.1 mg/dL (2.5-4.9); POTASSIUM 3.8 mmol/L (3.5-5.1)
--- NOTE | 2024-03-15 07:35 | NUR ---
REPORT RECEIVED FROM KAYLA POLO. PATIENT SITTING UP RESTING IN BED WITH EYES CLOSED. RESPIRATIONS EVEN AND UNLABORED. SINUS TACH ON TELE IN THE LOW 100S. O2 SAT 100% ON 3.5L.
--- NOTE | 2024-03-15 08:36 | NUR ---
PATIENT REVIEWED IN MORNING HUDDLE. ORDER RECEIVED FROM DR. VASQUEZ TO DC IV DIFLUCAN AND TO ORDER PT/OT EVAL AND TREAT.
[2024-03-15] MEDS ORDERED: SENNOSIDES/DOCUSATE 1 EA TAB PO SCH (09:00)
[2024-03-15] MEDS ORDERED: POLYETHYLENE GLYCOL 3350 1 PACKET PO SCH (09:00)
--- NOTE | 2024-03-15 09:56 | NUR ---
PATIENT GIVEN BEDBATH. NEW MALE PUREWICK PLACED FOR LEAKING. PATIENT PASSING GAS AND REPORTS NEED TO HAVE A BOWEL MOVEMENT. UP TO BSC FOR BM. PATIENT HAD A LARGE SOFT BM. BACKSIDE CLEANED THEN PATIENT UP TO CHAIR. TOLERATED ACTIVITY WELL. PERSONAL ITEMS IN REACH. CALL LIGHT IN REACH. FRESH WATER GIVEN. EDUCATION PROVIDED ON PO FLUID INTAKE, DECREASING COFFEE INTAKE AND DRINKING WATER INSTEAD. PATIENT AGREEABLE.
--- NOTE | 2024-03-15 10:33 | NUR ---
PATIENT REMAINS UP IN CHAIR. VOIDED 1000ML CLEAR YELLOW URINE. PT IN ROOM TO WORK WITH PATIENT.
--- NOTE | 2024-03-15 10:54 | NUR ---
REPORT GIVEN TO OBI ON MED/SURG. PATIENT UPDATED ON POC.
--- NOTE | 2024-03-15 11:50 | NUR ---
PATIENT TRANSFERRED TO ROOM 110 VIA CHAIR. ORIENTED TO NEW ROOM AND CALL LIGHT FUNCTIONS. PERSONAL BELONGINGS PLACED IN CLOSET IN ROOM. KAYLA CROCKER IN ROOM AND GAVE PATIENT FRESH WATER. PATIENT VERBALIZED UNDERSTANDING TO CALL FOR ASSISTANCE WHEN NEEDING TO GET UP.
--- NOTE | 2024-03-15 11:58 | NUR ---
Patient arrived to the medical floor from CCU. Patient is alert and oriented x3, no acute distress. Patient is on 3L oxygen per nc, sp02 91%. Patient oriented to room and call light. Male external catheter in place. Patient denies needs, personal supplies and call light within reach.
--- NOTE | 2024-03-15 14:02 | NUR ---
PATIENT SITTING UP IN BED WATCHING TV AT THIS TIME. VITALS AND I&O'S DONE AND CHARTED. CALL LIGHT IN REACH. NO FURTHER NEEDS AT THIS TIME.
--- NOTE | 2024-03-15 17:46 | NUR ---
PATIENT SITTING UP IN CHAIR EATING DINNER AT THIS TIME. VITALS AND I&O'S DONE AND CHARTED. CALL LIGHT IN REACH. NO FURTHER NEEDS AT THIS TIME.
--- NOTE | 2024-03-15 19:29 | NUR ---
REPORT RECEIVED FROM DAY SHIFT RN. PT LYING IN BED ALERT AND ORIENTED. PERSONAL FAN PROVIDED. ASSISTED PT TO SIT ON SIDE OF BED. NO FURTHER NEEDS. WHITE BOARD UPDATED. CALL LIGHT IN REACH. VISTOR AT BEDSIDE.
--- NOTE | 2024-03-15 21:20 | NUR ---
PT RESTING WITH EYES CLOSED. BIPAP IN PLACE. AWAKENS EASILY. EVENING ASSESSMENT COMPLETE. SCHEDULED MEDS ADMIN PER EMAR. PT DENIES PAIN OR NAUSEA. DENIES SOB. 2L/NC IN PLACE. SpO2 89-91%. VS AND I&O OBTAINED. PT UP TO BSC WITH FWW AND SBA TO ATTEMPT BM. GAIT STEADY. CALL LIGHT IN REACH.
--- NOTE | 2024-03-15 21:45 | NUR ---
CALL LIGHT ANSWERED. pt ASSISTED WITH CLEANING AFTER LARGE, FORMED BM. SBA WITH FWW BACK TO BED FROM BSC. pt SITTING AT SIDE OF BED, CALL LIGHT IN REACH. 2L OXYGEN BY NC IN PLACE.
--- NOTE | 2024-03-15 22:40 | NUR ---
CPOX ALARMING. ISSUE RESOLVED. PT PLACED BACK ON BIPAP. NO FURTHER NEEDS.
[2024-03-16] VITALS (10 sets, daily range): BP systolic 120–149; BP diastolic 69–89
--- NOTE | 2024-03-16 01:21 | NUR ---
PT RESTING IN BED WITH EYES CLOSED. BIPAP IN PLACE. SpO2 96%. HR 90'S.
--- NOTE | 2024-03-16 03:29 | NUR ---
PT RESTING IN BED WITH BIPAP IN PLACE. EYES CLOSED. RESPIRATIONS EVEN. SpO2 98%. HR 80'S.
--- NOTE | 2024-03-16 05:46 | NUR ---
PT RESTING IN BED WITH BIPAP IN PLACE. AWAKENS EASILY. MALE PUREWICK LEAKING. PUREWICK CHANGED. SKIN CLEANED AND NEW LINENS/GOWN IN PLACE. PT UP TO RECLINER. GAIT STEADY. ASSESSMENT COMPLETE. 2L/NC IN PLACE. PT DENIES SOB. SCHEDULED MEDS ADMIN PER EMAR. NO FURTHER NEEDS. CALL LIGHT IN REACH.
--- NOTE | 2024-03-16 07:38 | NUR ---
Board has been updated and call light has been placed within reach.
--- NOTE | 2024-03-16 07:52 | NUR ---
UR CLINICAL REVIEW: [facility] FOR COPD [facility]DS [facility] 03/13/24 @ 0334 ORDER MATCHES REG WILL SEND CLINICAL FOR REVIEW DISCHARGE PENDING FURTHER TREATMENT 03/17/24
--- NOTE | 2024-03-16 08:01 | NUR ---
Report rec'd from Megan GARZA. Pt sitting up in chair, awake A&Ox3, O2 @ 2LNC Sats 92-93% No distress noted. Call fajardo within reach.
--- NOTE | 2024-03-16 08:09 | NUR ---
WOUND CARE CONSULTED FOR BLE. NO OPEN WOUNDS NOTED UPON ASSESSMENT. DRY FLAKY SKIN NOTED TO BLE. CLOSED WOUND NOTED TO RIGHT MCQUEEN. NO WOUND CARE NEEDS OBSERVED AT THIS TIME.
[2024-03-16] MEDS ORDERED: SCOPOLAMINE 1 MG/3 DAYS PATCH 1 EACH TDSY TD SCH (09:00)
--- NOTE | 2024-03-16 09:15 | NUR ---
Spoke with Shree. He states he cont. to live at his home with 2 steps. He has multiple pieces of DME. He is having more difficulty getting in and outof his house and to appts. He and Dr. Nayak did change his POLST to DNR/DNI. I scanned it to the registry. Pt denies needs to go home, but states he will be back. He is complaining of his hernia and wants Dr. Nayak to "fix it". Discussed with Shree, Dr. Nayak is a hospitalist and not a surgeon. We then discussed Shree has had appts with Dr. Turk. He cannot remember what was discussed. I will call and check if we can schedule another appointment. Pt states his phone ringer does not work, so he misses calls. I asked if they can call his SATURNINOAshley with messages as she takes him to most of his appts. He states she is willing to do this. Pt denies financial issues, but does get food stamps. He is waiting on his SS disability. He denies other needs. A friend is remodeling his bathroom and putting in a walk in shower.
[2024-03-16] MEDS ORDERED: METOPROLOL TARTRATE 25 MG TAB PO SCH (09:37)
--- NOTE | 2024-03-16 12:01 | NUR ---
Patient sitting up in chair, respirations even and non labored. Patient on 2L oxygen per nc, sp02 92%. Personal supplies and call light within reach.
--- NOTE | 2024-03-16 16:15 | NUR ---
Was able to reach Dr. Tita VALLE. She reviewed Shree's chart. Pt was referred by Dr. Guzman to Dr. Javier Zabala in [place] as he was deemed to high risk to have his hernia surgery at [place]. Dr. Zabala [phone]. I will discuss this with Shree in the AM. Will check if he has received any contact from this office.
--- NOTE | 2024-03-16 18:31 | NUR ---
Patient up in recliner t/o day. Pt tolerated po metoprolol with HR coming to high 90's - low 100's. Purwick draining clear yellow urine. Tolerates po. Compliant with call fajardo use and oxygen therapy, using coronet, O2 sats maintained low to mid 90's.
--- NOTE | 2024-03-16 19:30 | NUR ---
REPORT RECEIVED FROM DAY SHIFT RN. PT LYING IN BED ALERT AND ORIENTED. DENIES NEEDS. WHITE BOARD UPDATED. CALL LIGHT IN REACH.
--- NOTE | 2024-03-16 21:26 | NUR ---
PT RESTING WITH BIPAP IN PLACE. AWAKENS EASILY. VS AND I&O OBTAINED. EVENING ASSESSMENT COMPLETE. SCHEDULED MEDS ADMIN PER EMAR. PT DENIES PAIN OR NAUSEA. DENIES SOB. 1.5L/NC PLACED FOR APPLICATION PACKAGING SPECIALIST. LUNGS CLEAR THROUGHOUT AT THIS TIME. SNACK PROVIDED. PT DENIES QUESTIONS OR CONCERNS. CALL LIGHT IN REACH.
--- NOTE | 2024-03-16 22:24 | NUR ---
CPOX ALARMING. SENSOR REPLACED. BIPAP PLACED PER PT REQUEST. NO FURTHER NEEDS.
[2024-03-17] VITALS (8 sets, daily range): BP systolic 119–142; BP diastolic 71–80
--- NOTE | 2024-03-17 01:19 | NUR ---
PT RESTING IN BED WITH EYES CLOSED. BIPAP IN PLACE. SpO2 93%. HR 70'S.
--- NOTE | 2024-03-17 03:09 | NUR ---
PT RESTING IN BED WITH EYES CLOSED. RESPIRATIONS EVEN. BIPAP IN PLACE. CALL LIGHT IN REACH.
--- NOTE | 2024-03-17 04:21 | NUR ---
PT RESTING WITH BIPAP IN PLACE. SpO2 91%. HR 80'S.
--- NOTE | 2024-03-17 05:28 | NUR ---
call light answered, pt off bipap and back on 1.5lnc per dandre rouse. fresh cup of ice provided per pt request. cpox in place, call light in reach. pt denies additional needs or concerns.
--- NOTE | 2024-03-17 05:44 | NUR ---
PT AWAKE IN BED. VS AND I&O OBTAINED. PT ON 1.5L/NC. SpO2 MID TO LOW 90'S. HR 80'S. PT DENIES SOB. ASSESSMENT COMPLETE. PT DENIES PAIN OR NAUSEA. SCHEDULED MEDS ADMIN PER EMAR. PT DENIES FURTHER NEEDS. CALL LIGHT IN REACH.
--- NOTE | 2024-03-17 07:22 | NUR ---
PATIENT IS LYING IN BED ON 1.5 L NC. PATIENT IS AWAKE AND ANSWERING RN. ELIDA GIVEN CUP OF ICE PER PATIENT REQUEST. REPORT RECEIVED FROM PET TRAINER RN LEA. PATIENT STATED NO FURTHER NEEDS AT THIS TIME. CALL LIGHT AND PERSONAL BELONGINGS ARE WITHIN REACH.
--- NOTE | 2024-03-17 08:00 | NUR ---
PATIENT AWAKE IN BED, PLAYING ON IPAD. BOARD UPDATED. CALL LIGHT IN EASY REACH
--- NOTE | 2024-03-17 08:22 | NUR ---
PATIENT IS SITTING UPRIGHT IN THE BED WITH EYES CLOSED AND RESPIRATIONS ARE EVEN AND UNLABORED. PATIENT WITH BREAKFAST TRAY SET UP IN FRONT OF HIM. CALL LIGHT AND PERSONAL BELONGINGS ARE WITHIN REACH.
--- NOTE | 2024-03-17 09:50 | NUR ---
0900 MEDICATIONS ADMINISTERED PER THE EMAR. PATIENT IS SPEAKING WITH ELIESER AT CASE MANAGEMENT AT THIS TIME. PATIENT STATED NO FURTHER NEEDS. CALL LIGHT AND PERSONAL BELONGINGS ARE WITHIN REACH.
--- NOTE | 2024-03-17 09:50 | NUR ---
In and spoke with Shree after 8:[address] Nayak. Pt's situation was discussed and his needs. Pt now wanting DNR/DNI. Pt would qualify for Hospice. I discussed Hospice with Shree and he states he would like to no longer come to the hospital and would like care in his home. It has become more difficult for pt to leave his home. Pt is tearful and stating, Hospice is his only option. We discussed he never has to sign up for hospice if he doesn't want to. This would only happen if he decides to no longer seee treatment. Pt states he really wants to get his hernia repaired. I again let him know he needs to contact the in [place] and follow up with him. Dr. Turk will not do his surgery here as he is too high risks. Pt states understanding. He agees, I can call and discuss this with his SATURNINOAshley.
--- NOTE | 2024-03-17 09:50 | NUR ---
0900 MEDICATIONS ADMINISTERED PER THE EMAR. FULL ASSESSMENT COMPLETE AND DOCUMENTED IN THE CHART. PATIENT IS ALERT AND ORIENTED TIMES FOUR. CARDIAC WITH NORMAL S1 AND S2 ON AUSCULTATION. RADIAL PULSES ARE STRONG BILATERALLY. SENSATION INTACT WITH NO COMPLAINTS OF NUMBNESS AND TINGLING. HEART RATE IS TACHYCARDIC. PATIENT IS ON 1.5 L NC WHICH IS BASELINE FOR THE PATIENT. LUNG SOUNDS ARE CLEAR BILATERALLY IN ALL LUNG NIEVES. PATIENT WITH THE CPOX AT BEDSIDE. PATIENT WITH DEPENDENT/GENERALIZED EDEMA IN THE BILATERAL LOWER EXTREMITIES. BILATERAL LOWER EXTREMITIES ARE RONNIE WITH DRY SKIN THAT IS FLAKING. NO OPEN SKIN NOTED AND WITH NO DRAINAGE. BOWEL TONES ARE ACTIVE IN ALL FOUR QUADRANTS. PATIENT LAST BOWEL MOVEMENT WAS 03/16/24. IV SITE IN THE LEFT HAND FLUSHED WITH 10 ML NORMAL SALINE. ROCEPHIN IS INFUSING AT 200 ML/HR. PATIENT WITH PAIN RATED 8/10 DUE TO AN UMBILLICAL HERNIA. PATIENT IS NOT REQUESTING PAIN MEDICATION AT THIS TIME. PATIENT IS NOW LYING IN BED WITH THE HOB ELEVATED. PATIENT STATED NO FURTHER NEEDS AT THIS TIME. CALL LIGHT AND PERSONAL BELONGINGS ARE WITHIN REACH.
--- NOTE | 2024-03-17 10:18 | NUR ---
UR CONCURRENT CLINICAL REVIEW: [facility] FOR COPD ODS [facility] 03/13/24 @ 0334 ORDER MATCHES REG WILL SEND UPDATED CLINICAL FOR REVIEW LIKELY DC TO HOME WHEN STABLE 03/20/24
--- NOTE | 2024-03-17 10:19 | NUR ---
PATIENT IS SPEAKING WITH ELIESER FROM CASE MANAGEMENT AT THIS TIME.
[2024-03-17] MEDS ORDERED: PREDNISONE20 MG PO (11:04)
[2024-03-17] MEDS ORDERED: CEFDINIR300 MG PO (11:06)
--- NOTE | 2024-03-17 11:21 | NUR ---
PATIENT IS SITTING UPRIGHT IN BED AND WATCHING TV. PATIENT IS ON 1.5 L NC AND RESPIRATIONS ARE EVEN AND UNLABORED. PATIENT MALE PUREWICK CANISTER EMPTIED OF 1000 ML YELLOW URINE. PATIENT STATED NO FURTHER NEEDS AT THIS TIME. CALL LIGHT AND PERSONAL BELONGINGS ARE WITHIN REACH.
--- NOTE | 2024-03-17 11:36 | NUR ---
PATIENT AZITHROMYCIN DOSE COMPLETE. IV SITE FLUSHED WITH 10 ML NORMAL SALINE AND IS NOW SALINE LOCKED. PATIENT GIVEN A CUP OF COFFEE AND CHOCOLATE PUDDING PER PATIENT REQUEST. PATIENT STATED NO FURTHER NEEDS AT THIS TIME. CALL LIGHT AND PERSONAL BELONGINGS ARE WITHIN REACH.
--- NOTE | 2024-03-17 12:55 | NUR ---
DISCHARGE INSTRUCTIONS AND EDUCATION REVIEWED WITH THE PATIENT. PATIENT SIGNED THE DISCHARGE FORM WITH NO FURTHER QUESTIONS OR CONCERNS. PATIENT STATED NO FURTHER NEEDS AT THIS TIME. PATIENT IS SITTING UPRIGHT IN THE BED AND WATCHING TV. CALL LIGHT AND PERSONAL BELONGINGS ARE WITHIN REACH.
--- NOTE | 2024-03-17 14:04 | NUR ---
1300 AND 1400 MEDICATIONS ADMINISTERED PER THE EMAR. PATIENT IV SITE FLUSHED WITH 10 ML NORMAL SALINE AND IS NOW SALINE LOCKED. IV DRESSING IS CLEAN, DRY, AND INTACT. PATIENT WITH NO FURTHER NEEDS AT THIS TIME. CALL LIGHT AND PERSONAL BELONGINGS ARE WITHIN REACH.
--- NOTE | 2024-03-17 14:07 | NUR ---
Spoke with Ashley and updated I am attempting to get Anastasiya phone that works. She states he can always give her number out as he lives close and she will pass on info. She also states she called [facility] about his hernia. Dr. Rowell reviewed his chart and has scheduled an appt for Apr to meet with Shree. If declines to repair pts hernia, she will discuss Hospice with him. She will pick pt up today and transport home. She will bring his clothing and an 02 tank. Ashley is pts sister in law.
--- NOTE | 2024-03-17 14:10 | NUR ---
PT NOT AVAILABLE FOR VISIT. PROVIDED PRAYER.
--- NOTE | 2024-03-17 14:38 | NUR ---
PT REQUESTS SHOWER CAP, DONE FOR PT BY RN. PT UP TO VOID IN RESTROOM. VSS. PT BELONGINGS PACKED WITH RN ASSISTANCE. PT STATES NO FURTHER NEEDS AT THIS TIME, CALL LIGHT WITHIN REACH.
--- NOTE | 2024-03-17 14:50 | NUR ---
I contacted [facility] as pt cont. to request a phone. He does not have the money to buy a phone. I was told to fill out a flexible funds request and fax to them with the pts chart showing need. Form completed and signed by pts PCP Dr. Guzman. All faxed to number on the sheet at [facility].
--- NOTE | 2024-03-17 15:20 | NUR ---
PATIENT VOID 200 ML LIGHT YELLOW URINE INTO THE URINAL. PATIENT GIVEN CUP OF ICE PER PATIENT REQUEST. PATIENT STATED NO FURTHER NEEDS AT THIS TIME. CALL LIGHT AND PERSONAL BELONGINGS ARE WTIHIN REACH.
--- NOTE | 2024-03-17 15:50 | NUR ---
PATIENT IS SITTING UPRIGHT IN THE BED WITH EYES OPEN AND RESPIRATIONS ARE EVEN AND UNLABORED. RT IS IN THE ROOM AT THIS TIME. CALL LIGHT AND PERSONAL BELONGINGS ARE WITHIN REACH.
--- NOTE | 2024-03-17 15:58 | NUR ---
PATIENT IS LYING IN BED WITH EYES CLOSED AND RESPIRATIONS ARE EVEN AND UNLABORED. IV PUMP ALARM. IV SITE FLUSHED WITH 10 ML NORMAL SALINE. IV SITE WITH A TOWEL AND WRAPPED TO HELP REMIND PATIENT TO KEEP HER ARM STRAIGHT. IV D5LR INFUSION RESUMED AT 75 ML/HR. PATIENT STATED NO FURTHER NEEDS AT THIS TIME. CALL LIGHT AND PERSONAL BELONGINGS ARE WITHIN REACH.
== END 2024-03-17 16:20 | disposition home or self-care (01) | DRG 193 ==
LOC: ED 00:49 → MS 00:51 → CCU 10:20 → MS 03-15 09:00
PROVIDERS: Internal Medicine; ADMIT Internal Medicine; ATTEND Internal Medicine
DX: J18.9 Pneumonia, unspecified organism (principal); J96.21 Acute and chronic respiratory failure with hypoxia; J96.22 Acute and chronic respiratory failure with hypercapnia; J44.1 Chronic obstructive pulmonary disease with (acute) exacerbation; I87.8 Other specified disorders of veins; B35.1 Tinea unguium; E66.01 Morbid (severe) obesity due to excess calories; K42.9 Umbilical hernia without obstruction or gangrene; K43.9 Ventral hernia without obstruction or gangrene; E78.00 Pure hypercholesterolemia, unspecified; I10 Essential (primary) hypertension; Z98.890 Other specified postprocedural states; Z68.41 Body mass index [BMI] 40.0-44.9, adult; Z88.0 Allergy status to penicillin; Z79.811 Long term (current) use of aromatase inhibitors; Z79.2 Long term (current) use of antibiotics; Z87.891 Personal history of nicotine dependence
CPT/HCPCS: 36415; 36600; 71045; 74177; 80053; 80307; 81003; 82553; 82803; 83605; 83735; 83880; 84100; 84443; 84484; 84550; 85025; 85379; 87502; 94640; 94644; 94660; 94667; 94668; 94762; 96372; 96375; 96376; 97110; 97116; 97163; 97166; 97530; A9270; G0378; G0480; J0456; J0696; J1450; J1650; J1940; J2270; J2405; J2919; J3475; J7060; J7121; Q0177; Q9967; U0002

== ENCOUNTER 2024-04-24 15:06 | Inpatient (IN) | payer OTHER ==
[~2024-04-24] VITALS: Ht 175.3 cm; Wt 131.6 kg
[~2024-04-24 15:06] MED LIST changes: +CEFDINIR300 MG PO; +PREDNISONE20 MG PO
--- OUTSIDE RECORDS SUMMARY | 2024-04-24 15:08 | XMS ---
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 Events No recent Security Events currently on file CRITERIA MET - 6 ED Visits in 6 Months CARE PROVIDERS -, [facility] Dentist: Surgical Instruments Inspector [facility] PHONE: [phone] -Sean- Dentist: Surgical Instruments Inspector [facility] PHONE: [phone] RAE LASSITER MD Orthopaedic Surgery Current PHONE: Unknown [employer] [facility] Current PHONE: Unknown [facility]/Center: [facility] Current \F\ [facility] PHONE: [phone] Vani has no Care Guidelines for this patient. Phil VISIT COUNT (12 MO.) 5 DORA Damon 1 Tyler Clay ([facility]) [facility] NOTE: Visits indicate total known visits. ED/UCC VISIT TRACKING (12 MO.) 04/24/2024 15:06 DORA Jacobo [place] TYPE: Emergency COMPLAINT: - ABDOMINAL PAIN/SOB 03/13/2024 00:50 DOR[facility] Jacobo [place] TYPE: Emergency COMPLAINT: - SHORTNESS OF BREATH 03/06/2024 21:35 DOR[facility] Jacobo [place] TYPE: Emergency COMPLAINT: - DRESSING CHANGE DIAGNOSES: - Allergy status to penicillin - Chronic obstructive pulmonary disease, unspecified - Encounter for change or removal of nonsurgical wound dressing - Essential (primary) hypertension - Nicotine dependence, unspecified, uncomplicated - Other long term care pharmacist (current) drug therapy 03/04/2024 19:13 [facility] TYPE: Emergency DIAGNOSES: - Constipation, unspecified - Unspecified abdominal pain - Abdominal Pain - Hernia 01/30/2024 21:51 DORA Ulrich TYPE: Emergency COMPLAINT: - SHORTNESS OF BREATH 11/02/2023 19:41 Tyler MARTINEZ ([facility]) TYPE: Emergency DIAGNOSES: - Localized edema [...] or gangrene INPATIENT VISIT TRACKING (12 MO.) 03/15/2024 09:00 DOR[facility] Jacobo [place] TYPE: Medical Surgical COMPLAINT: - COPD EXACERBATION DIAGNOSES: - Acute and chronic respiratory failure with hypercapnia - Acute and chronic respiratory failure with hypoxia - Allergy status to penicillin - Body mass index [BMI] 40.0-44.9, adult - Chronic obstructive pulmonary disease with (acute) exacerbation - Essential (primary) hypertension - alf (current) use of antibiotics - alf (current) use of aromatase inhibitors - Morbid (severe) obesity due to excess calories - Other specified disorders of veins - Other specified postprocedural states - Personal history of nicotine dependence - Pneumonia, unspecified organism - Pure hypercholesterolemia, unspecified - Tinea unguium - Umbilical hernia without obstruction or gangrene - Ventral hernia without obstruction or gangrene 01/31/2024 10:23 [facility]OR[facility] Jacobo [place] TYPE: Medical [...] (primary) hypertension - Hypomagnesemia - Hypomagnesemia - 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 - 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 - alf (current) use of inhaled steroids - alf (current) use of inhaled steroids - Methicillin susceptible Staphylococcus aureus infection as the cause of diseases classified elsewhere - Methicillin susceptible Staphylococcus aureus infection as the cause of diseases classified elsewhere - Morbid (severe) obesity due to excess calories - Morbid (severe) obesity due to excess calories - Nicotine dependence, cigarettes, uncomplicated - Nicotine dependence, cigarettes, uncomplicated - Other detention (current) drug therapy - Other detention (current) drug therapy - Other sites of candidiasis - Other sites of candidiasis - Other specified postprocedural states - Other specified postprocedural states - Pure hypercholesterolemia, unspecified - Pure hypercholesterolemia, unspecified - Sepsis, unspecified organism - Sepsis, unspecified organism - Unspecified asthma, uncomplicated - Unspecified asthma, uncomplicated [email or web address]
[2024-04-24] MEDS ORDERED: FUROSEMIDE 40 MG/4 ML VIAL IV ONE (15:45)
[2024-04-24] MEDS ORDERED: ALBUTEROL/IPRATROPIUM 3 ML NEB INH ONE (15:45)
[2024-04-24] MEDS ORDERED: methylPREDNISolone SOD SUCC 125 MG/2 ML VIAL IV ONE (15:45)
[2024-04-24] MEDS ORDERED: ondansetron HCL 4 MG/2 ML VIAL IV ONE (15:45)
[2024-04-24] MEDS ORDERED: HYDROmorphone HCL 1 MG/ML SYR IV ONE (15:45)
[2024-04-24 15:50] LABS: BASOPHILS 0.4 % (0-2); EOSINOPHILS 2.3 % (0-6); HEMATOCRIT 39.7 % (35.0-50.0); HEMOGLOBIN 12.9 g/dL (12.0-18.0); MCH 30.3 (27-36); MCHC 32.6 g/dl (30-36); MCV 93.1 fl (81-99); MONOCYTES 8.7 % (0-12); NEUTROPHILS 76.6 % (39-80); PLATELET COUNT 232 K/uL (140-440); RBC 4.26 M/ul (4.3-5.7); RDW 14.7 (10.5-15.0)
[2024-04-24] MEDS ORDERED: POTASSIUM CHLO20 ME2 PO (15:55)
[2024-04-24] MEDS ORDERED: ATORVASTATIN CA20 MG PO (15:55)
[2024-04-24] MEDS ORDERED: KETOCONAZOLE120 ML TOP (15:55)
[2024-04-24 16:08] LABS: ALBUMIN 3.2 g/dL (3.4-5.0); ALBUMIN/GLOBULIN RATIO 0.86 (1.1-2.4); ANION GAP 4.4 (7-21); BILIRUBIN, TOTAL 0.6 ng/dL (0.2-1.0); BUN/CREATININE RATIO 21.51 (6.0-28.6); CREATININE, SERUM 0.79 mg/dL (0.70-1.30); POTASSIUM 4.4 mmol/L (3.5-5.1); PROTEIN, TOTAL 6.9 g/dL (6.4-8.2)
[2024-04-24 16:48] LABS: BILIRUBIN, URINE NEGATIVE (negative); BLOOD/HGB, URINE NEGATIVE (Negative); KETONE, URINE NEGATIVE (Negative); LEUK ESTERASE, URINE NEGATIVE (negative); NITRITE, URINE NEGATIVE (negative); PH, URINE 6.5 (5-7)
[2024-04-24] MEDS ORDERED: ALBUTEROL SULFATE 0.5% 2.5 MG/0.5 ML VIAL INH ONE (17:00)
[2024-04-24] MEDS ORDERED: levoFLOXacin 750 MG/150 ML BAG IV ONE (17:30)
[2024-04-24 18:09] LABS: PH, VENOUS 7.136 (7.31-7.41)
[2024-04-24] MEDS ORDERED: MAGNESIUM SULFATE 2 GM/50 ML BAG IV ONE (19:00)
[2024-04-24 19:12] LABS: INFLUENZA B NAA NEGATIVE (NEGATIVE); RESPIRATORY SYNCYTIAL VIR NAA NEGATIVE (NEGATIVE)
[2024-04-24 20:19] LABS: BASE EXCESS, BLOOD GAS 7.1 mmol/L (-2-2); O2 SATURATION, BLOOD GAS 88.4 % (95.0-100.0); PH, BLOOD GAS 7.14 (7.35-7.45); PO2, BLOOD GAS 64 mmHg (80-100); TOTAL CO2, BLOOD GAS 44.7
[2024-04-24 20:21] LABS: OXYGEN RECEIVED, BLOOD GAS 50%
[2024-04-24 22:51] LABS: BASE EXCESS, BLOOD GAS 8.6 mmol/L (-2-2); HCO3, BLOOD GAS 41.5 mmol/L (22-26); O2 SATURATION, BLOOD GAS 90.3 % (95.0-100.0); OXYGEN RECEIVED, BLOOD GAS 40%; PH, BLOOD GAS 7.19 (7.35-7.45); PO2, BLOOD GAS 65 mmHg (80-100); TOTAL CO2, BLOOD GAS 44.9
[2024-04-25] MEDS ORDERED: ACETAMINOPHEN 500 MG TAB PO ONE (02:15)
[2024-04-25 04:23] LABS: BASE EXCESS, BLOOD GAS 11.1 mmol/L (-2-2); HCO3, BLOOD GAS 41.8 mmol/L (22-26); O2 SATURATION, BLOOD GAS 92.8 % (95.0-100.0); PCO2, BLOOD GAS 87.3 mmHg (35-45); PH, BLOOD GAS 7.29 (7.35-7.45); TOTAL CO2, BLOOD GAS 44.5
[2024-04-25] MEDS ORDERED: HYDROmorphone HCL 1 MG/ML SYR IV PRN ×2 (04:30→13:00)
[2024-04-25] MEDS ORDERED: methylPREDNISolone SOD SUCC 40 MG/ML VIAL IV ONE (05:30)
[2024-04-25] MEDS ORDERED: ALBUTEROL/IPRATROPIUM 3 ML NEB INH PRN (05:30)
[2024-04-25] MEDS ORDERED: methylPREDNISolone SOD SUCC 40 MG/ML VIAL IV SCH (06:00)
[2024-04-25 08:23] LABS: PH, VENOUS 7.314 (7.31-7.41)
[2024-04-25] MEDS ORDERED: ondansetron HCL 4 MG/2 ML VIAL IV PRN (10:00)
[2024-04-25] MEDS ORDERED: ACETAMINOPHEN 325 MG TAB PO PRN (10:00)
[2024-04-25 10:39] VITALS: BP 129/75
[2024-04-25 12:00] VITALS: BP 112/62
[2024-04-25] MEDS ORDERED: PHARMACY RENAL DOSE ADJUSTMENT 1 DOSE MISC PO SCH (12:00)
[2024-04-25] MEDS ORDERED: ALBUTEROL/IPRATROPIUM 3 ML NEB INH SCH (12:00)
[2024-04-25] MEDS ORDERED: BENZONATATE 100 MG CAP PO PRN (13:00)
[2024-04-25] MEDS ORDERED: guaiFENesin 600 MG TABCR PO PRN (13:00)
[2024-04-25] MEDS ORDERED: methylPREDNISolone SOD SUCC 125 MG/2 ML VIAL IV SCH (14:00)
[2024-04-25] MEDS ORDERED: FLUTICASONE-SA1 EAC5 INH (16:03)
[2024-04-25] MEDS ORDERED: GABAPENTIN300 MG PO (16:05)
[2024-04-25] MEDS ORDERED: FUROSEMIDE40 MG PO (16:05)
[2024-04-25 16:50] VITALS: BP 125/71
[2024-04-25] MEDS ORDERED: levoFLOXacin 750 MG/150 ML BAG IV SCH (17:00)
[2024-04-25 17:41] LABS: BASE EXCESS, BLOOD GAS 13.1 mmol/L (-2-2); HCO3, BLOOD GAS 40.9 mmol/L (22-26); O2 SATURATION, BLOOD GAS 93.3 % (95.0-100.0); OXYGEN RECEIVED, BLOOD GAS 45%; PCO2, BLOOD GAS 66.5 mmHg (35-45); PO2, BLOOD GAS 62 mmHg (80-100); TOTAL CO2, BLOOD GAS 42.9
[2024-04-25 20:00] VITALS: BP 135/75
[2024-04-25] MEDS ORDERED: BUDESONIDE 0.5 MG/2 ML VIAL INH SCH (20:00)
[2024-04-26] VITALS (15 sets, daily range): BP systolic 105–167; BP diastolic 49–98
[2024-04-26] MEDS ORDERED: ALBUTEROL/IPRATROPIUM 3 ML NEB INH PRN (03:30)
[2024-04-26 05:26] LABS: BASOPHILS 0.1 % (0-2); EOSINOPHILS 0.1 % (0-6); HEMOGLOBIN 12.9 g/dL (12.0-18.0); LYMPHOCYTES 2.6 % (24-44); MCH 30.3 (27-36); MCV 91.7 fl (81-99); MONOCYTES 0.9 % (0-12); NEUTROPHILS 96.3 % (39-80); PLATELET COUNT 257 K/uL (140-440); RBC 4.25 M/ul (4.3-5.7); RDW 14.4 (10.5-15.0)
[2024-04-26 05:41] LABS: ALBUMIN 3.4 g/dL (3.4-5.0); ALBUMIN/GLOBULIN RATIO 0.87 (1.1-2.4); ANION GAP 3.5 (7-21); BILIRUBIN, TOTAL 0.4 ng/dL (0.2-1.0); CALCIUM 9.5 mg/dL (8.5-10.1); MAGNESIUM 1.9 mg/dL (1.8-2.4); POTASSIUM 4.5 mmol/L (3.5-5.1); PROTEIN, TOTAL 7.3 g/dL (6.4-8.2)
--- NOTE | 2024-04-26 07:48 | EKG ---
[facility] [address] [place] [address] Signed Normal sinus rhythm Normal ECG When compared with ECG of 13-MAR-2024 01:23, No significant change was found Confirmed by Roland Agudelo MD () on 04/26/2024 7:48:02 AM Electronically Signed By: ROLAND AGUDELO MD 04/26/24 0748 PATIENT NAME: FARZANEHBRANDIE Electrocardiogram DATE OF : 63 PHYSICIAN: ROLAND AGUDELO MD REPORT #: [id number] REPORT IS CONFIDENTIAL AND NOT TO BE RELEASED WITHOUT AUTHORIZATION
[2024-04-26] MEDS ORDERED: ENOXAPARIN SODIUM 40 MG/0.4 ML SYR SUB-Q SCH (09:00)
[2024-04-26] MEDS ORDERED: SODIUM PHOSPHATE 30 MMOL in DEXTROSE 5% 500 ML IV ONE (09:00)
[2024-04-26] MEDS ORDERED: LIDOCAINE HCL 4% 1 EACH PATCH TD SCH (09:31)
[2024-04-26] MEDS ORDERED: hydrOXYzine pamoate 25 MG CAP PO PRN (09:45)
[2024-04-26] MEDS ORDERED: LIDOCAINE PATCH REMOVAL 1 EA TD SCH (21:00)
[2024-04-27] VITALS (8 sets, daily range): BP systolic 131–156; BP diastolic 67–92
[2024-04-27 05:38] LABS: BASOPHILS 0.1 % (0-2); EOSINOPHILS 0.1 % (0-6); HEMATOCRIT 40.4 % (35.0-50.0); HEMOGLOBIN 13.1 g/dL (12.0-18.0); LYMPHOCYTES 1.9 % (24-44); MCH 30.1 (27-36); MCHC 32.6 g/dl (30-36); MCV 92.3 fl (81-99); MONOCYTES 2.2 % (0-12); NEUTROPHILS 95.7 % (39-80); PLATELET COUNT 274 K/uL (140-440); RBC 4.37 M/ul (4.3-5.7); RDW 14.8 (10.5-15.0)
[2024-04-27 05:50] LABS: ANION GAP 8.8 (7-21); BUN/CREATININE RATIO 23.15 (6.0-28.6); CALCIUM 9.3 mg/dL (8.5-10.1); CREATININE, SERUM 0.95 mg/dL (0.70-1.30); PHOSPHORUS, INORGANIC 2.7 mg/dL (2.5-4.9); POTASSIUM 3.8 mmol/L (3.5-5.1)
[2024-04-27] MEDS ORDERED: SENNOSIDES/DOCUSATE 1 EA TAB PO SCH (09:12)
[2024-04-27] MEDS ORDERED: metroNIDAZOLE 250 MG TAB PO ONE (14:30)
[2024-04-27] MEDS ORDERED: methylPREDNISolone SOD SUCC 125 MG/2 ML VIAL IV SCH (21:00)
[2024-04-28] VITALS (8 sets, daily range): BP systolic 125–160; BP diastolic 72–94
[2024-04-28 05:41] LABS: BUN/CREATININE RATIO 28.39 (6.0-28.6); CALCIUM 8.8 mg/dL (8.5-10.1); CREATININE, SERUM 0.81 mg/dL (0.70-1.30)
[2024-04-28] MEDS ORDERED: levoFLOXacin 750 MG TAB PO SCH (06:00)
[2024-04-28] MEDS ORDERED: DEXTROSE 5% 1,000 ML IV PRN (08:15)
[2024-04-28] MEDS ORDERED: IBLOOD GLUCOSE TEST STRIP 1 EA TEST XX PRN (08:15)
[2024-04-28] MEDS ORDERED: GLUCAGON,HUMAN RECOMBINANT 1 MG/ML VIAL SUB-Q PRN (08:15)
[2024-04-28] MEDS ORDERED: DEXTROSE 50% 50 ML SYR IV PRN ×2 (08:15)
[2024-04-28 08:23] LABS: PH, VENOUS 7.438 (7.31-7.41)
[2024-04-28] MEDS ORDERED: acetaZOLAMIDE 250 MG TAB PO ONE (10:45)
[2024-04-28] MEDS ORDERED: IBLOOD GLUCOSE TEST STRIP 1 EA TEST VI SCH (12:00)
[2024-04-28] MEDS ORDERED: INSULIN LISPRO 100 UNIT/ML ML SUB-Q SCH (12:00)
[2024-04-29] VITALS (8 sets, daily range): BP systolic 129–146; BP diastolic 79–87
[2024-04-29 05:32] LABS: BASOPHILS 0.1 % (0-2); HEMATOCRIT 41.5 % (35.0-50.0); HEMOGLOBIN 13.5 g/dL (12.0-18.0); LYMPHOCYTES 2.1 % (24-44); MCH 30.2 (27-36); MCHC 32.5 g/dl (30-36); MCV 92.9 fl (81-99); MONOCYTES 3.8 % (0-12); PLATELET COUNT 271 K/uL (140-440); RBC 4.47 M/ul (4.3-5.7); RDW 14.9 (10.5-15.0)
[2024-04-29 05:42] LABS: BUN/CREATININE RATIO 26.31 (6.0-28.6); CALCIUM 8.6 mg/dL (8.5-10.1); CREATININE, SERUM 0.95 mg/dL (0.70-1.30); MAGNESIUM 2.1 mg/dL (1.8-2.4)
[2024-04-29] MEDS ORDERED: INSULIN LISPRO 100 UNIT/ML ML SUB-Q ONE (08:00)
[2024-04-29] MEDS ORDERED: methylPREDNISolone SOD SUCC 125 MG/2 ML VIAL IV SCH (09:00)
[2024-04-29] MEDS ORDERED: OXYCODONE HCL 5 MG TAB PO PRN (11:45)
[2024-04-29] MEDS ORDERED: INSULIN LISPRO 100 UNIT/ML ML SUB-Q SCH (12:00)
[2024-04-29] MEDS ORDERED: INSULIN GLARGINE-YFGN 100 UNIT/ML ML SUB-Q SCH (21:00)
[2024-04-30] VITALS (11 sets, daily range): BP systolic 112–151; BP diastolic 68–87
[2024-04-30 05:38] LABS: BASOPHILS 0.1 % (0-2); EOSINOPHILS 0.2 % (0-6); HEMATOCRIT 41.7 % (35.0-50.0); HEMOGLOBIN 13.8 g/dL (12.0-18.0); LYMPHOCYTES 3.9 % (24-44); MCH 30.5 (27-36); MCV 92.5 fl (81-99); MONOCYTES 7.8 % (0-12); PLATELET COUNT 277 K/uL (140-440); RBC 4.51 M/ul (4.3-5.7); RDW 15.3 (10.5-15.0)
[2024-04-30 05:59] LABS: ANION GAP 5.7 (7-21); BUN/CREATININE RATIO 25.25 (6.0-28.6); CALCIUM 8.5 mg/dL (8.5-10.1); CREATININE, SERUM 0.99 mg/dL (0.70-1.30); MAGNESIUM 2.1 mg/dL (1.8-2.4); POTASSIUM 3.7 mmol/L (3.5-5.1)
[2024-04-30] MEDS ORDERED: predniSONE 20 MG TAB PO SCH (09:00)
[2024-04-30] MEDS ORDERED: acetaZOLAMIDE 250 MG TAB PO ONE (11:45)
[2024-05-01 05:22] VITALS: BP 125/77
[2024-05-01 05:25] VITALS: BP 125/77
[2024-05-01 05:44] LABS: ANION GAP 8.2 (7-21); BUN/CREATININE RATIO 23.8 (6.0-28.6); CALCIUM 8.8 mg/dL (8.5-10.1); CREATININE, SERUM 1.05 mg/dL (0.70-1.30); POTASSIUM 4.2 mmol/L (3.5-5.1)
[2024-05-01 09:35] VITALS: BP 133/65
[2024-05-01] MEDS ORDERED: PREDNISONE10 MG PO (09:46)
[2024-05-01] MEDS ORDERED: PREDNISONE1 MG PO (10:03)
[2024-05-01] MEDS ORDERED: METFORMIN HCL500 M2 PO (10:04)
[2024-05-01 10:33] VITALS: BP 133/65
[2024-05-01 14:02] VITALS: BP 146/78
== END 2024-05-01 15:00 | disposition home or self-care (01) | DRG 193 ==
LOC: ED 15:06 → CCU 04-25 10:00 → MS 04-29 09:02
PROVIDERS: Emergency Medicine; Internal Medicine; Student in an Organized Health Care Education/Training Program; ADMIT Family Medicine; ATTEND Family Medicine
PROC: 5A09357 Assistance with Respiratory Ventilation, Less than 24 Consecutive Hours, Continuous Positive Airway Pressure (ICD-10-PCS; principal; 2024-04-25)
DX: J18.9 Pneumonia, unspecified organism (principal); J96.21 Acute and chronic respiratory failure with hypoxia; J44.1 Chronic obstructive pulmonary disease with (acute) exacerbation; K57.32 Diverticulitis of large intestine without perforation or abscess without bleeding; E87.20 Acidosis, unspecified; J44.0 Chronic obstructive pulmonary disease with (acute) lower respiratory infection; Z99.81 Dependence on supplemental oxygen; R73.03 Prediabetes; K46.9 Unspecified abdominal hernia without obstruction or gangrene; E78.00 Pure hypercholesterolemia, unspecified; I10 Essential (primary) hypertension; E83.39 Other disorders of phosphorus metabolism; Z88.0 Allergy status to penicillin; Z79.899 Other long term (current) drug therapy
CPT/HCPCS: 36415; 36600; 71045; 71260; 74176; 80048; 80053; 81003; 82803; 83036; 83605; 83690; 83735; 83880; 84100; 84484; 85025; 85379; 87040; 87502; 93005; 93010; 94640; 94660; 94667; 94668; 94762; 94799; A9270; J1650; J1815; J1940; J1956; J2405; J2919; J3475; J7060; J7512; Q0177; Q9967; U0002

== ENCOUNTER 2024-06-23 08:05 | Inpatient (IN) | payer OTHER ==
[2024-06-23] VITALS (11 sets, daily range): BP systolic 132–151; BP diastolic 68–96
[~2024-06-23] VITALS: Ht 175.3 cm; Wt 127.9 kg
[~2024-06-23 08:05] MED LIST changes: +ATORVASTATIN CA20 MG PO; +FUROSEMIDE40 MG PO; +GABAPENTIN300 MG PO; +KETOCONAZOLE120 ML TOP; +METFORMIN HCL500 M2 PO; +POTASSIUM CHLO20 ME2 PO; +PREDNISONE1 MG PO; +PREDNISONE10 MG PO; +TRELEGY ELLIPT1 EACH INH
--- OUTSIDE RECORDS SUMMARY | 2024-06-23 08:09 | XMS ---
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 PHONE: [phone] RAE LASSITER MD Orthopaedic Surgery Current PHONE: Unknown [facility]: [facility] Current FAMILY PHONE: [phone] ESTELITA Power Family [facility] Current PHONE: Unknown CHINA CHAPPELL Internal Medicine Current PHONE: Unknown Vani has no Care Guidelines for this patient. EMarco Antonio VISIT COUNT (12 MO.) 6 DORA Damon 1 Tyler Clay (Wilmer ) 1 [facility] NOTE: Visits indicate total known visits. 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 03/04/2024 19:13 [facility] TYPE: Emergency DIAGNOSES: - Constipation, unspecified - Unspecified abdominal pain - Abdominal Pain - Hernia 01/30/2024 21:51 DORA Ulrich TYPE: Emergency COMPLAINT: - SHORTNESS OF BREATH 11/02/2023 19:41 Tyler MAYS OR ([facility]) TYPE: Emergency DIAGNOSES: - Localized edema [...] or gangrene INPATIENT VISIT TRACKING (12 MO.) 04/25/2024 10:00 DORA Jacobo [place] TYPE: Medical Surgical COMPLAINT: - ACUTE HYPOXIC RESPIRATORY FAILURE DIAGNOSES: - Acidosis, unspecified - Acidosis, unspecified - Acute and chronic respiratory failure with hypoxia - Acute and chronic respiratory failure with hypoxia - Allergy status to penicillin - Allergy status to penicillin - Chronic obstructive pulmonary disease with (acute) exacerbation - Chronic obstructive pulmonary disease with (acute) lower respiratory infection - Chronic obstructive pulmonary disease with (acute) lower respiratory infection - Dependence on supplemental oxygen - Dependence on supplemental oxygen - Diverticulitis of large intestine without perforation or abscess without bleeding - Diverticulitis of large intestine without perforation or abscess without bleeding - Essential (primary) hypertension - Essential (primary) hypertension - Other disorders of phosphorus metabolism - Other disorders of phosphorus metabolism - Other residential (current) drug therapy - Other residential (current) drug therapy - Pneumonia, unspecified organism - Pneumonia, unspecified organism - Prediabetes - Prediabetes - Pure hypercholesterolemia, unspecified - Pure hypercholesterolemia, unspecified - Unspecified abdominal hernia without obstruction or gangrene - Unspecified abdominal hernia without obstruction or gangrene 03/15/2024 09:00 DORA Jacobo OR TYPE: Medical Surgical COMPLAINT: - COPD EXACERBATION DIAGNOSES: - Acute and chronic respiratory failure with hypercapnia - Acute and chronic respiratory failure with hypoxia - Allergy status to penicillin - Body mass index [BMI] 40.0-44.9, adult - Chronic obstructive pulmonary disease with (acute) exacerbation - Essential (primary) hypertension - care home (current) use of antibiotics - 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 - Morbid [...] (primary) hypertension - Hypomagnesemia - Hypomagnesemia - regional intermodal truck driver (current) use of antibiotics - care home (current) use of antibiotics - care home (current) use of inhaled steroids - regional intermodal truck driver (current) use of inhaled steroids - Methicillin susceptible Staphylococcus aureus infection as the cause of diseases classified elsewhere - Methicillin susceptible Staphylococcus aureus infection as the cause of diseases classified elsewhere - Morbid (severe) obesity due to excess calories - Morbid (severe) obesity due to excess calories - Nicotine dependence, cigarettes, uncomplicated - Nicotine dependence, cigarettes, uncomplicated - Other residential (current) drug therapy - 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
[2024-06-23] MEDS ORDERED: ALBUTEROL/IPRATROPIUM 3 ML NEB INH ONE (08:15)
[2024-06-23 08:39] LABS: PH, VENOUS 7.315 (7.31-7.41)
[2024-06-23 08:40] LABS: BASOPHILS 0.3 % (0-2); EOSINOPHILS 0.7 % (0-6); HEMATOCRIT 41.4 % (35.0-50.0); HEMOGLOBIN 13.4 g/dL (12.0-18.0); LYMPHOCYTES 7.7 % (24-44); MCH 30.6 (27-36); MCHC 32.5 g/dl (30-36); MCV 94.1 fl (81-99); MONOCYTES 9.2 % (0-12); NEUTROPHILS 82.1 % (39-80); PLATELET COUNT 276 K/uL (140-440); RBC 4.39 M/ul (4.3-5.7)
[2024-06-23 08:55] LABS: ALBUMIN/GLOBULIN RATIO 0.68 (1.1-2.4); ANION GAP 3.9 (7-21); BILIRUBIN, TOTAL 0.4 ng/dL (0.2-1.0); BUN/CREATININE RATIO 6.32 (6.0-28.6); CALCIUM 9.3 mg/dL (8.5-10.1); CREATININE, SERUM 0.79 mg/dL (0.70-1.30); POTASSIUM 3.9 mmol/L (3.5-5.1); PROTEIN, TOTAL 7.4 g/dL (6.4-8.2)
[2024-06-23] MEDS ORDERED: methylPREDNISolone SOD SUCC 125 MG/2 ML VIAL IV ONE (09:15)
[2024-06-23 09:19] LABS: INFLUENZA B NAA NEGATIVE (NEGATIVE); RESPIRATORY SYNCYTIAL VIR NAA NEGATIVE (NEGATIVE)
[2024-06-23] MEDS ORDERED: AZITHROMYCIN/DEXTROSE 500 MG/250 ML PIGGYBACK IV ONE (11:00)
[2024-06-23 11:07] LABS: BASE EXCESS, BLOOD GAS 17.3 mmol/L (-2-2); HCO3, BLOOD GAS 46.8 mmol/L (22-26); O2 SATURATION, BLOOD GAS 91.8 % (95.0-100.0); PCO2, BLOOD GAS 83.2 mmHg (35-45); PH, BLOOD GAS 7.36 (7.35-7.45); PO2, BLOOD GAS 61 mmHg (80-100); TOTAL CO2, BLOOD GAS 49.3
[2024-06-23 11:09] LABS: OXYGEN RECEIVED, BLOOD GAS 32% FiO2
[2024-06-23] MEDS ORDERED: SODIUM CHLORIDE 0.9% 500 ML IV PRN (11:15)
[2024-06-23] MEDS ORDERED: CEFTRIAXONE/SODIUM CHLORIDE 2 GM/100 ML PIGGYBACK IV ONE (11:15)
[2024-06-23 11:30] LABS: BILIRUBIN, URINE NEGATIVE (negative); BLOOD/HGB, URINE NEGATIVE (Negative); KETONE, URINE SMALL (Negative); LEUK ESTERASE, URINE NEGATIVE (negative); NITRITE, URINE NEGATIVE (negative); PH, URINE 7.5 (5-7)
[2024-06-23] MEDS ORDERED: ACETAMINOPHEN 325 MG TAB PO PRN (13:30)
[2024-06-23] MEDS ORDERED: ondansetron HCL 4 MG/2 ML VIAL IV PRN (13:30)
[2024-06-23] MEDS ORDERED: ALBUTEROL SULFATE 0.083% 3 ML VIAL INH PRN (13:45)
--- NOTE | 2024-06-23 14:05 | NUR ---
pt to room 129 ccu via er strecher with rt and er nurse, pt somewhat talkative, poor historian, unable to move self in bed, max assist trsf to bed via hover air slide sheet. pt 2 rn skin check of backside wnl, front of left mejia with fist size peeling skin and hot red scaling legs from toes to thight. marked with pen the lower extrimity redness that is more edmetous than the thigh. pt groin also red and hot - scrotum with edema noted. pt denies need to use bathroom, oral intake of water given and oral care provided for dry mouth - bipap on, call light in reach visible to the rn station.
--- NOTE | 2024-06-23 15:12 | EKG ---
[facility] [address] [place] [address] Signed Sinus tachycardia Otherwise normal ECG When compared with ECG of 24-APR-2024 15:21, No significant change was found Confirmed by Roland Agudelo MD () on 06/23/2024 3:12:38 PM Electronically Signed By: ROLAND AGUDELO MD 06/23/24 1512 PATIENT NAME: BRANDIE MOY JAZMINE Electrocardiogram DATE OF : 63 PHYSICIAN: ROLAND AGUDELO MD REPORT #: [id number] REPORT IS CONFIDENTIAL AND NOT TO BE RELEASED WITHOUT AUTHORIZATION
--- NOTE | 2024-06-23 15:35 | NUR ---
medications reconciled
--- NOTE | 2024-06-23 15:36 | NUR ---
UR CLINICAL REVIEW: KALI, MEETS COPD GUIDELINE FOR INPT [facility] INPT 06/23/24 @ 1322 ORDER MATCHES REG AUTH PENDING CLINICAL REVIEW. CLINICALS SENT VIA [employer] TO HOME WHEN STABLE. 06/25/24
[2024-06-23] MEDS ORDERED: ALBUTEROL/IPRATROPIUM 3 ML NEB INH PRN (16:00)
--- NOTE | 2024-06-23 16:10 | NUR ---
DR HERE ON UNIT AWARE OF VITALS, PT RESTING WITH EYES CLOSED TOLLERATING BIPAP.
--- NOTE | 2024-06-23 17:08 | NUR ---
PT INC. OF AMT OF URINE, COMPLETE LINEN CHANGE WITH MAX ASSIST, PT PROVIDED A MALE PUREWICK HE WAS UNAWARE OF VOID. ATTENDS ALSO PLACED. PT C/O HERNIA PAIN AND PO TYLENOL GIVEN WITH JUICE ENSURE. CALL LIGHT IN REACH. BIPAP ON.
--- NOTE | 2024-06-23 17:16 | NUR ---
ORAL CARE DONE WITH PT, NO TEETH - PT REPORTS LAST DRINK OF ETOH YESTERDAY 1 BLACK VELVET EACH NIGHT - NOT QUITE A FIFTH HE REPORTS - PT ANXIOUS AND SOB. BIPAP BACK ON. PT REPORTS HE DOES NOT SMOKE.
--- NOTE | 2024-06-23 19:01 | NUR ---
pt resting, dr on unit. pt call light in reach - bipap continues.
--- NOTE | 2024-06-23 19:15 | NUR ---
RECEIVED REPORT FROM DAY SHIFT RN. PATIENT IS RESTING IN BED WITH EYES CLOSED, RR 22. NAD NOTED. CALL LIGHT IN REACH.
[2024-06-23] MEDS ORDERED: BUDESONIDE 0.5 MG/2 ML VIAL INH SCH (20:00)
[2024-06-23] MEDS ORDERED: ALBUTEROL/IPRATROPIUM 3 ML NEB INH SCH (20:00)
--- NOTE | 2024-06-23 20:33 | NUR ---
RT IN ROOM TO ADMIN NEB. PATIENT CONTINUES TO WEAR BIPAP. PATIENT AWOKE BREIFELY AND DENIES ANY NEEDS. PATIENT DENIES ANY PAIN OR SOB. PATIENTS ASSESMENT COMPLETED. PATIENT HAS MALE PUREWICK IN PLACE. PATIENTS IVS FLUSHED AND SL PER ORDER. NO FURTHER NEEDS NOTED. CALL LIGHT IN REACH.
--- NOTE | 2024-06-23 21:30 | NUR ---
PATIENT IS RESTING IN BED WEARING BIPAP, RR 23. NAD NOTED. CALL LIGHT IN REACH.
--- NOTE | 2024-06-23 22:26 | NUR ---
PATIENTS MASK ADJUSTED. PATIENT DENIES ANY PAIN. PATIENT DENIES ANY SOB. NO NEEDS NOTED. CALL LIGHT IN REACH.
--- NOTE | 2024-06-23 23:55 | NUR ---
RT IN ROOM TO ADMIN NEB. PATIENT IS RESTING IN BED WEARING BIPAP, RR 24. NAD NOTED. CALL LIGHT IN REACH.
[2024-06-24] VITALS (13 sets, daily range): BP systolic 128–161; BP diastolic 66–105
--- NOTE | 2024-06-24 00:27 | NUR ---
PATIENT REMOVED FROM BIPAP AND PLACED ON 2L VIA NC. PATIENT PROVIDED ICE WATER. PATIENT REPOSITIONED IN BED. PATIENT RATES BACK PAIN AT A 8/10 IN HIS BACK, PRN MEDICATION GIVEN PER ORDER. PATIENTS FACE WASHED AND ORAL CARE COMPLETED. PATIENT CONTINUES TO HAVE MALE PUREWICK IN PLACE. PATIENT REPORTS MINIMAL SOB. PATIENT PROVIDED WARM BLANKET. ASSESMENT COMPLETED. PATIENT CARE COMPLETED AND PATIENT REQUESTS TO BE PLACED BACK ON BIPAP. PATIENT PLAED BACK ON BIPAP. PATIENT DENIES ANY FURTHER NEEDS. CALL LIGHT IN REACH.
--- NOTE | 2024-06-24 02:02 | NUR ---
PATIENTS BIPAP MASK ADJUSTED. PATIENT WOKE BRIEFLY AND DENIES ANY NEEDS. CALL LIGHT IN REACH.
--- NOTE | 2024-06-24 03:15 | NUR ---
PATIENTS BIPAP MASK ASDJUSTED. PATIENT DENIES ANY PAIN OR SOB. PATIENT DENIES ANY NEEDS. CALL LIGHT IN REACH.
--- NOTE | 2024-06-24 04:05 | NUR ---
RT IN ROOM TO ADMIN NEB.
--- NOTE | 2024-06-24 04:52 | NUR ---
PATIENT REPOSITIONED IN BED. PATIENTS BIPAP TAKEN OFF AND SIPS OF WATER GIVEN. PATIENT PLACED BACK ON BIPAP PER REQUEST. PATIENT DENIES ANY PAIN OR SOB. PATIENTS IV FLUSHED X2. PATIENT DENIES ANY FURTHER NEEDS. CALL LIGHT IN REACH.
[2024-06-24 05:43] LABS: BASOPHILS 0.5 % (0-2); HEMATOCRIT 40.7 % (35.0-50.0); LYMPHOCYTES 9.4 % (24-44); MCH 29.8 (27-36); MCHC 31.9 g/dl (30-36); MCV 93.6 fl (81-99); MONOCYTES 7.9 % (0-12); NEUTROPHILS 82.2 % (39-80); PLATELET COUNT 292 K/uL (140-440); RBC 4.35 M/ul (4.3-5.7); RDW 13.8 (10.5-15.0)
[2024-06-24 05:59] LABS: BASE EXCESS, BLOOD GAS 17.8 mmol/L (-2-2); HCO3, BLOOD GAS 44.1 mmol/L (22-26); O2 SATURATION, BLOOD GAS 94.3 % (95.0-100.0); PCO2, BLOOD GAS 58.6 mmHg (35-45); PH, BLOOD GAS 7.49 (7.35-7.45); TOTAL CO2, BLOOD GAS 45.9
[2024-06-24 06:02] LABS: ALBUMIN 2.7 g/dL (3.4-5.0); ALBUMIN/GLOBULIN RATIO 0.66 (1.1-2.4); ANION GAP 6.6 (7-21); BILIRUBIN, TOTAL 0.4 ng/dL (0.2-1.0); BUN/CREATININE RATIO 8.33 (6.0-28.6); CALCIUM 9.1 mg/dL (8.5-10.1); CREATININE, SERUM 0.84 mg/dL (0.70-1.30); MAGNESIUM 1.6 mg/dL (1.8-2.4); PHOSPHORUS, INORGANIC 2.1 mg/dL (2.5-4.9); POTASSIUM 3.6 mmol/L (3.5-5.1); PROTEIN, TOTAL 6.8 g/dL (6.4-8.2)
--- NOTE | 2024-06-24 06:07 | NUR ---
RT IN ROOM TO DRAW ABG. PATIENT REMOVED FRO BIPAP AND PLACED ON 2L VIA NC. PATIENT REPOSITIONED IN BED. PATIENT DENIES ANY PAIN OR SOB. PATIENTS MALE PUREWICK IN PLACE. PATIENTS INTAKE AND OUPUT RECORDED. FRESH ICE WATER PROVIDED. PATIENT DENIES ANY FURTHER NEEDS. CALL LIGHT IN REACH.
[2024-06-24] MEDS ORDERED: POTASSIUM PHOSPHATE 30 MMOL in DEXTROSE 5% 500 ML IV ONE (08:15)
[2024-06-24] MEDS ORDERED: MAGNESIUM SULFATE 2 GM/50 ML BAG IV SCH (08:15)
--- NOTE | 2024-06-24 08:58 | NUR ---
pt tollerated meal well, hob up, sob with eating - nc 4l for meal. sats 92% now with 2l nc. dr ramesh in room, noted left leg wound, legs hot, red and dry. purewick with urine to suction. call light in reach.
[2024-06-24] MEDS ORDERED: AZITHROMYCIN 500 MG in DEXTROSE 5% 250 ML IV SCH (09:00)
[2024-06-24] MEDS ORDERED: ENOXAPARIN SODIUM 40 MG/0.4 ML SYR SUB-Q SCH (09:00)
[2024-06-24] MEDS ORDERED: methylPREDNISolone SOD SUCC 40 MG/ML VIAL IV SCH (09:00)
[2024-06-24] MEDS ORDERED: LIDOCAINE HCL 4% 1 EACH PATCH TD SCH (09:16)
[2024-06-24] MEDS ORDERED: FUROSEMIDE 40 MG TAB PO SCH (09:43)
--- NOTE | 2024-06-24 11:03 | NUR ---
PT NOT AVAILABLE FOR VISIT. PROVIDED PRAYER.
[2024-06-24] MEDS ORDERED: PHARMACY RENAL DOSE ADJUSTMENT 1 DOSE MISC PO SCH (12:00)
--- NOTE | 2024-06-24 13:00 | NUR ---
In and spoke with Shree. I attemped to see this morning and he did not awaken to voice or touch. He is awake and sitting up in bed. Ashley, his sister in law is in the room. Pt denies any changes since last admit. He cont. to live at home with two roommates who assist him at times. He has a walker, Ashley returned his wc to [place]. He would like a wc as he has difficulty walking. He is still attempting to get SSD. He has a CPAP at home and states he uses it every night. He now has a preop appt with Dr. Pantoja at [facility] for her hernia repair. (This has been a long time coming) His appt is Aug.16. He also now has a working phone. His phone number is [phone]. Pt will go home on discharge. Ashley will cont. to assist him as needed. He denies any needs at home. He would like a bariatric wc and we discussed he most like will not qualify as he states his weight is 278. I believe the weight is 350, but I will check with Fabrice.
--- NOTE | 2024-06-24 13:06 | NUR ---
PATIENT IN BED AT THIS TIME. DRAPERY HEAD FORMER AND RN STUDENT ASSISTED PATIENT IN A BED BATH. CALL LIGHT WITHIN REACH, NO FURTHER NEEDS AT THIS TIME.
--- NOTE | 2024-06-24 13:38 | NUR ---
pt resting in bed after bed bath and am care and lunch. bipap placed on and sats 96%, hr 117. call light in reach - pt falls asleep.
--- NOTE | 2024-06-24 14:25 | NUR ---
pt family comes in and reports that dr anand general surgeon in [facility] is the dr who is seeing chandan for his hernia repair. Aug. 3 is pre op. pt visiting with erich mullen.
--- NOTE | 2024-06-24 18:50 | NUR ---
PT FEELING MUCH IMPROVED PER HIS REPORT, MORE ACTIVE IN REACHING FOR PERSONAL ITEMS, TOLLERATING 95% OXYGEN ON NASAL CANNULA 2L. PT DENIES WANTING OR FEELING UP TO GETTING OUT OF BED. STILL SOB WITH EXERTION. SL X2 BILAT ARMS WNL. DR AGUDELO HERE - PLAN TO TRSF PT TO MED SURG. PT USING MALE PUREWICK AND LARGE AMT OF CLEAR VERENICE URINE NOTED THIS SHIFT AFTER PO LASIX GIVEN. PT LEG EDEMA STILL PRESENT WITH READNESS, HEAT AND LEFT LEG ABRASION CONTINUE TO HEAL. DRY CRACKED SKIN NOTED BILATERAL LOWER EXTRIMEITY. PT WATCHING TV WITH NO COMPLAINTS AND CALL LIGHT IN REACH.
--- NOTE | 2024-06-24 19:30 | NUR ---
SHIFT REPORT RECEIVED. PATIENT RESTING IN BED. FAMILY AT BEDSIDE. VS STABLE. PATIENT EATING SNACKS BROUGHT IN BY FAMILY.
--- NOTE | 2024-06-24 20:15 | NUR ---
BEDSIDE REPORT RECEIVED FROM CCU RN EVERTON, pt TRANSFERRED FROM CCU TO MS ROOM #115 AT THIS TIME WITH HELP FROM FLOAT KAYLA AREVALO. pt ORIENTED TO MS ROOM AND POC, QUESTIONS ANSWERED. ASSESSMENT COMPLETE, IV SITES X2 WNL. SCHEDULED MEDS GIVEN-SEE EMAR. 2LNC IN PLACE, CPOX AT BEDSIDE. RT MOSHE ALSO IN ROOM. SKIN TO BLE VERY FLAKEY AND DRY WITH ABRASION TO LEFT MCQUEEN, REDDNESS ALSO NOTED. CMS INTACT, pt DENIES NUMBNESS AND TINGLING. FRESH ICE WATER PROVIDED, NO FURTHER NEEDS, CALL LIGHT IN REACH.
--- NOTE | 2024-06-24 20:45 | NUR ---
PER pt REQUEST, pt OFF 2LNC AND SWITCHED TO BEDSIDE AVAPS-SETTINGS PER RT. CPOX REMAINS IN PLACE, NO ADDITIONAL NEEDS OR CONCERNS, CALL LIGHT IN REACH.
--- NOTE | 2024-06-24 20:52 | NUR ---
CROWN BLOCKER CHANGED MALE PUREWICK. CROWN BLOCKER THEN ASSISTED PT TO REMOVE 2 RINGS ON LEFT HAND. RINGS PLACED IN CUP AND PLACED INTO PT ROOM SAFE AND LOCKED. PT STATES THAT HE WOULD LIKE HIS OXYGEN MASK BACK ON. PRIMARY RN NOTIFED. PT STATES NO FURTHER NEEDS FROM CROWN BLOCKER. CALL LIGHT WITHIN REACH.
[2024-06-24] MEDS ORDERED: LIDOCAINE PATCH REMOVAL 1 EA TD SCH (21:00)
--- NOTE | 2024-06-24 21:15 | NUR ---
VERBAL ORDER READ BACK FROM DR AGUDELO FOR pt TO BE ON TELE. pt PLACED ON TELE WHEN TRANSFERRED FROM CCU TO MS. MCDERMOTT RN TO PUT IN ORDER.
--- NOTE | 2024-06-24 22:08 | NUR ---
ROUNDED ON pt, pt OFF AVAPS AT THIS TIME, BACK ON 2LNC PER pt REQUEST, pt STATES, "I'VE BEEN EYE BALLING THAT WATER". CPOX REMAINS IN PLACE AND CALL LIGHT IN REACH, HR ONE TEENS AND SPO2 90%. NO ADDITIONAL NEEDS OR CONCERNS.
--- NOTE | 2024-06-24 22:45 | NUR ---
CALL LIGHT ANSWERED, pt REQUESTING TO GO BACK ON BIPAP-RT MOSHE ALREADY IN ROOM AND PLACING pt ON BIPAP-AVAPS MODE. NO ADDITIONAL NEEDS OR CONCERNS NOTED, CALL LIGHT IN REACH.
--- NOTE | 2024-06-24 23:23 | NUR ---
rounded on pt, pt resting in bed with eyes closed. bedside cpox in place, spo2 wnl and hr 104 per tele monitor. avaps remains in place, settings per rt. call light in reach, no s/sx of distress or pain noted.
[2024-06-25] VITALS (10 sets, daily range): BP systolic 129–153; BP diastolic 66–84
--- NOTE | 2024-06-25 00:34 | NUR ---
ADJUSTED BRANDIE'S AVAPS SETTINGS TO: VT: 420, RR: 16, EPAP: 8, MIN P: 9, MAX P: 30, TI: 0.9, RISE: 3, FIO2: 27%. HE IS TOLERATING THE ADJUSTMENT WELL.
--- NOTE | 2024-06-25 00:35 | NUR ---
CALL LIGHT ANSWERED, pt OFF BIPAP AND BACK ON 2LNC. FRESH ICE WATER PROVIDED PER pt REQUEST, CALL LIGHT IN REACH. ANNIKA STEVENSON TO EMPTY URINE OUTPUT CANISTER.
--- NOTE | 2024-06-25 00:41 | NUR ---
SCREW SUPERVISOR MEASURED AND EMPTIED PUREWICK CANNISTER. SCREW SUPERVISOR THE OBTAINED AND DOCUMENTED VITALS AND I&O. PT STATES NO FURTHER NEEDS AT THIS TIME. CALL LIGHT WITHIN REACH.
--- NOTE | 2024-06-25 01:31 | NUR ---
rounded on pt, pt resting quietly in bed, 2lnc in place. spo2 89-90%, hr 105. rr even and unlabored, no distress noted. call light in reach.
--- NOTE | 2024-06-25 02:45 | NUR ---
ROUNDED ON pt, pt AWAKE AND RESTING IN BED-AGREES TO SWITCH BACK TO BIPAP. pt THEN ASKING TO DANGLE BLE OVER EDGE OF BED, SECOND RN CLAUDIA IN ROOM TO ASSIST. pt UP SBA WITH WALKER AND STOOD NEXT TO BED AND REMAINED STANDING, INCONTINENT OF SMEAR BM. JOSUE CARE DONE AND NEW ATTENDS IN PLACE, MALE PUREWICK REMAINS. pt BACK IN BED, CPOX REMAINS AT BEDSIDE. pt TOLERATED WELL, BUT WAS WANTING TO GET BACK IN BED TOWARDS END OF EVENT, SPO2 LOW 90'S, HR MAINTAINED IN ONE TEENS WHILE STANDING. WARM BLANKET PROVIDED. BLE ELEVATED IN BED WITH NEW CHUCKS IN PLACE. BLE REMAINS VERY FLAKEY AND DRY IN APPEARANCE, +1 EDEMA AND RONNIE. PHOTOS TAKEN OF BLE AND SORE/ABRASION TO LEFT MCQUEEN, CONSENT ALSO OBTAINED AND PLACED IN CHART. NO FURTHER NEEDS, CALL LIGHT IN REACH. IV SITES X2 REMAIN WNL AND SALINE LOCKED.
--- NOTE | 2024-06-25 02:47 | NUR ---
ROUNDED ON pt, pt AWAKE AND RESTING IN BED-AGREES TO SWITCH BACK TO BIPAP. pt THEN ASKING TO DANGLE BLE OVER EDGE OF BED, SECOND RN CLAUDIA IN ROOM TO ASSIST. pt UP SBA WITH WALKER AND STOOD NEXT TO BED AND REMAINED STANDING, INCONTINENT OF SMEAR BM. JOSUE CARE DONE AND NEW ATTENDS IN PLACE, MALE PUREWICK REMAINS. pt BACK IN BED, CPOX REMAINS AT BEDSIDE. pt TOLERATED WELL, BUT WAS WANTING TO GET BACK IN BED TOWARDS END OF EVENT, SPO2 LOW 90'S, HR MAINTAINED IN ONE TEENS WHILE STANDING. WARM BLANKET PROVIDED. BLE ELEVATED IN BED WITH NEW CHUCKS IN PLACE. BLE REMAINS VERY FLAKEY AND DRY IN APPEARANCE, +1 EDEMA AND RONNIE. WILL DISCUSS WOUND TO LEFT MCQUEEN WITH WINCH TRUCK OPERATOR IMCKEY. NO FURTHER NEEDS, CALL LIGHT IN REACH. IV SITES X2 REMAIN WNL AND SALINE LOCKED.
--- NOTE | 2024-06-25 04:12 | NUR ---
rounded on pt, pt resting in bed with eyes closed and bipap remains in place, spo2 93%, hr 105 per tele monitor. rr even and unlabored, no distress noted. call light in reach.
--- NOTE | 2024-06-25 04:27 | NUR ---
REBECCA IS ON AVAPS WITH THE FOLLOWING SETTINGS: VT: 450, RR: 16, TI: 0.9, RISE: 3, EPAP: 8, MIN P: 9, MAX P: 30, FIO2: 27%. TOLERATING THE MODE AND SETTINGS WELL.
--- NOTE | 2024-06-25 05:00 | NUR ---
WITH HELP FROM FLOAT KAYLA AREVALO (WHO IS ALSO WOUND CARE CERTIFIED), BLE SOAKED AND CLEANED WITH WOUND CLEANSER AND DEBRISOFT LOLLY TO REMOVE DRY/FLAKEY SKIN. PHOTOS THEN TAKEN AND PLACED IN CHART, VASCULAR ULCER TO LEFT MCQUEEN APPROX 7CM IN LENGTH AND APPROX 5CM IN WIDTH. NO DRAINAGE NOTED, KAYLA AREVALO PLACED DATED ALLEVYN TO LEFT MCQUEEN. pt TOLERATED WELL. VS AND I&O'S COLLECTED. pt SWITCHED FROM BIPAP TO 2LNC, CPOX REMAINS IN PLACE. NO ACUTE CHANGES TO ASSESSMENT. IV T0 RIGHT FOREARM DC'D D/T PAIN WITH FLUSH, CATHETER TIP INTACT. IV SITE TO LEFT FOREARM WNL, FLUSHES EASILY AND SALINE LOCKED. SAP PLANT MAINTENANCE CONSULTANT IN ROOM TO COLLECT DAILY WEIGHT. CALL LIGHT IN REACH.
[2024-06-25 05:43] LABS: BASOPHILS 0.2 % (0-2); EOSINOPHILS 0.3 % (0-6); HEMATOCRIT 41.4 % (35.0-50.0); HEMOGLOBIN 13.2 g/dL (12.0-18.0); LYMPHOCYTES 4.2 % (24-44); MCH 29.8 (27-36); MCHC 31.8 g/dl (30-36); MCV 93.7 fl (81-99); MONOCYTES 4.2 % (0-12); NEUTROPHILS 91.1 % (39-80); PLATELET COUNT 299 K/uL (140-440); RBC 4.42 M/ul (4.3-5.7)
[2024-06-25 06:02] LABS: ALBUMIN 2.8 g/dL (3.4-5.0); ALBUMIN/GLOBULIN RATIO 0.67 (1.1-2.4); ANION GAP 7.9 (7-21); BILIRUBIN, TOTAL 0.2 ng/dL (0.2-1.0); BUN/CREATININE RATIO 13.09 (6.0-28.6); CALCIUM 8.7 mg/dL (8.5-10.1); CREATININE, SERUM 0.84 mg/dL (0.70-1.30); POTASSIUM 3.9 mmol/L (3.5-5.1)
--- NOTE | 2024-06-25 06:30 | NUR ---
friend valorie vega called and asked for pt update, pt okay'd update and update provided. phone then transferred to pt room.
--- NOTE | 2024-06-25 07:15 | NUR ---
Pt report received from KAYLA Maza. Pt is resting supin in bed, A&O, television on, male purewick connected to wall suction, no issues. Side rails up x4, call light in reach, white board updated.
--- NOTE | 2024-06-25 07:38 | NUR ---
UR CONCURRENT REVIEW: [facility]-DOES NOT MEET GL DAY 2, REMAINS NEEDED FOR BIPAP ODS [facility] INPT 06/23/24 @ 1322 ORDER MATCHES REG CLINICALS SENT FOR AUTH REVIEW DISCHARGE TO HOME WHEN STABLE 06/27/24
[2024-06-25] MEDS ORDERED: ALBUTEROL/IPRATROPIUM 3 ML NEB INH SCH (08:00)
[2024-06-25] MEDS ORDERED: BUDESONIDE 0.5 MG/2 ML VIAL INH SCH (08:00)
--- NOTE | 2024-06-25 08:02 | NUR ---
PATIENT IN BED AT THIS TIME. HOTEL DINING ROOM CASHIER ASSISTED PATIENT IN GETTING ON WEIGHT SCALE THIS MORNING. CALL LIGHT WITHIN REACH, NO FURTHER NEEDS AT THIS TIME.
[2024-06-25] MEDS ORDERED: AZITHROMYCIN 250 MG TAB PO SCH (09:00)
[2024-06-25] MEDS ORDERED: AZITHROMYCIN 500 MG VIAL IV SCH (09:00)
--- NOTE | 2024-06-25 11:54 | NUR ---
ALERT AND ORIENTED IN BED. OXYGEN IN PLACE. STATES HE IS STILL PLANNING ON DC TO HOME WHEN MEDICALLY STABLE. DENIES CM NEEDS AT THIS TIME.
--- NOTE | 2024-06-25 13:02 | NUR ---
Advised by Physical Therapists that pt did tolerate ambulating using 4-wheel walker but complained that he was having 10 out of 10 back pain using it vs. a front-wheeled walker. They advised that the pt began to desat with ambulation so they increased his O2 to 3LPM which helped. They have the pt up in the chair and advised him that they would like him to be up in the chair for at least two meals. They also advised him that they would like him to get up to void instead of using the male purewick, stating that use of it increases the risk of developing urinary incontinence.
--- NOTE | 2024-06-25 13:20 | NUR ---
PATIENT IN BED AT THIS TIME. MICROBIAL SPECIALIST AND RN CHARTED VITALS AND I&O'S. CALL LIGHT WITHIN REACH, NO FURTHER NEEDS AT THIS TIME.
--- NOTE | 2024-06-25 13:22 | NUR ---
PATIENT IN CHAIR AT THIS TIME. POWER TRANSMISSION ENGINEER AND RN CHARTED VITALS AND I&O'S. CALL LIGHT WITHIN REACH, NO FUTHER NEEDS AT THIS TIME.
--- NOTE | 2024-06-25 14:05 | NUR ---
In with pt in response to call light. Pt needs to "use the bathroom". Pt is currently up in the chair. 1 person, SBA with line and tube management while pt ambulates to the toilet with FWW. Pt seemed to do well until he had to sit on the shower chair to allow me to change his no-slip socks (leaked some urine on them). While trying to hold one leg up at a time, the pt became short of breath. Pt waited for a few minutes after I placed his clean socks on him before he stood and ambulated back to bed using FWW. O2 increased to 3LPM once pt was seated on the shower chair. Once he was back in bed, SPO2 read 87%; however, it increased in under one minute to 94%. O2 decreased to 2LPM while pt in bed. Pt reconnected to suction for purewick while in bed. Side rails up x4, call light in reach.
--- NOTE | 2024-06-25 15:54 | NUR ---
PATIENT IN BED AT THIS TIME. HOTHOUSE WORKER DID HOURLY ROUNDS. CALL LIGHT WITHIN REACH, NO FRUTHER NEEDS AT THIS TIME.
--- NOTE | 2024-06-25 18:05 | NUR ---
In with pt for hourly rounding. Pt is supine in bed with HOB elevated, television on. Pt states he is really hot. Provided the pt with a battery powered fan, and iced water and a cup of ice. Pt states this is helping him feel better. Side rails up x4, call light in reach
--- NOTE | 2024-06-25 18:18 | NUR ---
PATIENT IN CHAIR AT THIS TIME. WORKING MANAGER ASSISTED PATIENT IN MOVING FROM BED TO CHAIR USING A FRONT WHEELED WALKER. CALL LIGHT WITHIN REACH, NO FURTHER NEEDS AT THIS TIME.
--- NOTE | 2024-06-25 19:45 | NUR ---
PT UTILIZES CALL LIGHT, REQUESTS TO GO BACK TO BED. INSIDE FINISHER AND OFFGOING DAYSHIFT RN, ROCHELLE, TO ROOM. PT ASSISTED BACK TO BED WITH 1PA, TOLERATED WELL. ICE WATER REFILLED. PT DENIES FURTHER NEEDS AT THIS TIME. CALL LIGHT IN REACH.
--- NOTE | 2024-06-25 21:46 | NUR ---
HELIUM ARC WELDER OBTAINED VITALS AND I&O. PUREWICK CANNISTER EMPTIED. HELIUM ARC WELDER THEN CHANGED PT MALE PUREWICK. PT STATES NO FURTHER NEEDS AT THIS TIME. CALL LIGHT WITHIN REACH.
--- NOTE | 2024-06-25 22:20 | NUR ---
PT RESTING IN BED WATCHING TV. PT REPORTS SLIGHT SOB AFTER COUGHING. STATES THAT HE IS BEGING TO PRODUCE SMALL AMOUNTS OF MUCOUS. SAO2 90'S ON 2 LPM. LUNG SOUNDS WITH EXPIRATORY WHEEZE TO BILATERAL BASES. PT ASSISTED TO PUT BIPAP MASK ON AFTER ASSESSMENT COMPLETE. TELE # [address] SINUS TACH, 100 BMP. PT WITH LIDOCAINE TO ABD FOR HERNIA. BT'S ACTIVE. PT REPORTS INCREASED PAIN WITH ABD PALPATION. BLE WITH 1+ EDEMA PRESENT. LEGS RONNIE. PT DENIES NEEDS AT THIS TIME. POC FOR THIS SHIFT DISCUSSED, PT STATES UNDERSTANDING. DENIES FURTHER NEEDS AT THIS TIME. CALL LIGHT IN REACH.
--- NOTE | 2024-06-26 00:10 | NUR ---
PT ROUNDING. PT RESTING IN BED WITH EYES CLOSED. RESPIRATIONS EVEN AND UNLABORED. BIPAP IN PLACE APPROPRIATELY. SA02 96%, HR 92, RR 20. PT APPEARS TO BE SLEEPING. DOES NOT WAKE WHILE MARKET DIRECTOR AT DOORWAY. CALL LIGHT IN REACH.
[2024-06-26 01:40] VITALS: BP 154/79
--- NOTE | 2024-06-26 01:44 | NUR ---
CREDIT ANALYSIS MANAGER OBTIANED VITALS AND I&O. PUREWICK CANNISTER EMPTIED. PT STATES NO NEEDS AT THIS TIME. CALL LIGHT WITHIN REACH.
[2024-06-26 03:00] VITALS: BP 154/79
[2024-06-26 04:21] VITALS: BP 144/91
--- NOTE | 2024-06-26 04:22 | NUR ---
CALL LIGHT ANSWERED. PT WANTED TO TAKE HIS BIPAP MASK OFF. POWER PLANT MANAGER CHECKED WITH LIVESTOCK BRANDS INSPECTOR IF HE WAS ABLE TO TAKE IT OFF. LIVESTOCK BRANDS INSPECTOR VERIFIED THAT HE COULD TAKE IT OFF. POWER PLANT MANAGER ASSISTED PT WITH TAKING OFF MASK. POWER PLANT MANAGER THEN OBTAINED VITALS AND I&O. PUREWICK CANNISTER EMPTIED AND ICE WATER REFRESHED. PT STATES NO FURTHER NEEDS AT THIS TIME. CALL LIGHT WITHIN REACH.
[2024-06-26 05:23] LABS: BASOPHILS 0.3 % (0-2); EOSINOPHILS 0.3 % (0-6); HEMATOCRIT 39.5 % (35.0-50.0); HEMOGLOBIN 12.8 g/dL (12.0-18.0); LYMPHOCYTES 7.8 % (24-44); MCH 30.3 (27-36); MCHC 32.4 g/dl (30-36); MCV 93.7 fl (81-99); MONOCYTES 7.6 % (0-12); PLATELET COUNT 284 K/uL (140-440); RBC 4.22 M/ul (4.3-5.7); RDW 14.4 (10.5-15.0)
[2024-06-26 06:06] LABS: ALBUMIN 2.7 g/dL (3.4-5.0); ALBUMIN/GLOBULIN RATIO 0.71 (1.1-2.4); BILIRUBIN, TOTAL 0.2 ng/dL (0.2-1.0); BUN/CREATININE RATIO 15.18 (6.0-28.6); CALCIUM 8.6 mg/dL (8.5-10.1); CREATININE, SERUM 0.79 mg/dL (0.70-1.30); PROTEIN, TOTAL 6.5 g/dL (6.4-8.2)
[2024-06-26] MEDS ORDERED: methylPREDNISolone SOD SUCC 40 MG/ML VIAL IV SCH (09:00)
[2024-06-26] MEDS ORDERED: POLYETHYLENE GLYCOL 3350 1 PACKET PO SCH (09:00)
[2024-06-26] MEDS ORDERED: SENNOSIDES/DOCUSATE 1 EA TAB PO SCH (09:00)
[2024-06-26 10:12] VITALS: BP 131/71
[2024-06-26] MEDS ORDERED: PREDNISONE20 MG PO (10:35)
[2024-06-26] MEDS ORDERED: LASIX40 MG PO (10:35)
[2024-06-26] MEDS ORDERED: POTASSIUM CHLO10 MEQ PO (10:38)
--- NOTE | 2024-06-26 12:20 | NUR ---
WOUND CARE PERFORMED YESTERDAY BY NURSE.
[2024-06-26 12:22] VITALS: BP 131/71
[2024-06-26 15:05] VITALS: BP 119/67
== END 2024-06-26 15:40 | disposition home or self-care (01) | DRG 189 ==
LOC: ED 08:05 → MS 13:24 → CCU 13:24 → MS 06-24 20:02
PROVIDERS: Emergency Medicine; ADMIT Family Medicine; ATTEND Family Medicine
PROC: 5A09357 Assistance with Respiratory Ventilation, Less than 24 Consecutive Hours, Continuous Positive Airway Pressure (ICD-10-PCS; principal; 2024-06-23)
DX: J96.21 Acute and chronic respiratory failure with hypoxia (principal); J44.1 Chronic obstructive pulmonary disease with (acute) exacerbation; R65.10 Systemic inflammatory response syndrome (SIRS) of non-infectious origin without acute organ dysfunction; J96.22 Acute and chronic respiratory failure with hypercapnia; Z99.81 Dependence on supplemental oxygen; Z79.84 Long term (current) use of oral hypoglycemic drugs; Z79.899 Other long term (current) drug therapy; K43.9 Ventral hernia without obstruction or gangrene; I10 Essential (primary) hypertension; E78.00 Pure hypercholesterolemia, unspecified; Z88.0 Allergy status to penicillin; Z87.891 Personal history of nicotine dependence
CPT/HCPCS: 36415; 36600; 51701; 71045; 71260; 74176; 80053; 81003; 82803; 83605; 83735; 83880; 84100; 84484; 85025; 85379; 87502; 93005; 93010; 94640; 94660; 94667; 94668; 94762; 99285-25; A9270; J0456; J0696; J1650; J2919; J3475; J7040; J7060; Q9967; U0002